=== PATIENT | female | born 1960 | race Caucasian/White ===

== ENCOUNTER 2016-07-02 09:02 | Day surgery (SDC) | payer BC ==
[2016-06-28 13:57] VITALS: BMI 42.9
[~2016-07-02 09:02] MED LIST: LACTATED RINGERS 1,000 ML IV SCH
[2016-07-02] MEDS ORDERED: LIDOCAINE 1% 20 ML VIAL (10MG/ML) FOR IV START SQ ONE (10:28)
[2016-07-02 10:35] VITALS: TEMP 97.4
[2016-07-02] MEDS ORDERED: DEXTROSE 50%-WATER 50 ML SYRINGE IVP STA (10:51)
[2016-07-02 10:58] LABS: Glucose,Whole Blood 64 mg/dL (75-99)
[2016-07-02 11:19] LABS: Glucose,Whole Blood 102 mg/dL (75-99)
[2016-07-02] MEDS ORDERED: LIDOCAINE 1% INJ 10MG/ML (20 ML MDV) ONE (11:20)
[2016-07-02] MEDS ORDERED: PROPOFOL 10 MG/ML 20 ML VIAL IV ONE (11:20)
[2016-07-02] MEDS ORDERED: ONDANSETRON 4 MG/2 ML VIAL ONE (11:20)
[2016-07-02] MEDS ORDERED: GLYCOPYRROLATE 0.2 MG/ML 2 ML VIAL ONE (11:20)
--- NOTE | 2016-07-02 11:56 | P.PCN ---
Date of Procedure: 07/02/16 Procedure(s) Performed: Procedure: 1. Esophagogastroduodenoscopy and biopsy. 2. Total colonoscopy. Preoperative diagnosis: 1. Chronic reflux symptoms and dysphagia. 2. Screening for colon cancer. Postoperative diagnosis: 1. Sliding hiatal hernia with no obvious esophagitis or complicated reflux disease. 2. Antral gastritis. 3. Normal colon exam. Preparation: HalfLytely prep. Sedation: Was provided by anesthesia. Brief clinical history: The patient is a 55-year-old female who is scheduled for this evaluation for the above reasons. She been having issues with reflux for the last year or so and apparently has intermittent dysphagia but no other alarm symptoms. She has had no prior colonoscopy. She has no abdominal complaints, bleeding or anemia or family history of colon cancer. Procedure: With the patient on her left lateral decubitus position and after informed consent and adequate sedation, I passed the Olympus-GIF 160 video upper endoscope through the cricopharyngeus down the esophagus. GE junction was around 38 cm from the incisors and there was a small sliding hiatal hernia between 1-2 cm. The esophagus did not show any obvious erosions, ulcers, strictures or Baca's esophagus. The endoscope was then passed into the stomach which was insufflated with air and inspected in detail including the retroflex view in the cardia. There was some mottling and erythema in the antrum and scattered small, fading erosions but no ulcers or bleeding. Pyloric channel did not show any ulcers. Duodenal bulb, post bulbar area and descending duodenum showed minimal red. I obtained multiple biopsies from the duodenum, antrum and esophagus then the endoscope was withdrawn and I proceeded with the colonoscopy. Perianal area did not show any fissures or fistulas. There were no masses felt on digital rectal examination. The Olympus CFQ 160L video colonoscope was then inserted in the rectum in the usual fashion and advanced to the cecum. The preparation was good. The mucosa appeared healthy. No polyps or tumors were seen or any obvious diverticular disease or other pathology. I retroflexed endoscope in the rectum before the endoscope was withdrawn. The patient tolerated the procedure well. Plan: The patient was reassured. Will await biopsy results. In the absence of family history of colon cancer or finding of polyps today, I recommended repeat colonoscopy in 10 years. She will follow-up with you as planned.
[2016-07-02 12:10] VITALS: BP 107/61; PULSE 64; RESP 18
== END 2016-07-02 12:32 | disposition home or self-care (01) ==
LOC: ORWHC2ENDO 09:02
DX: Z12.11 Encounter for screening for malignant neoplasm of colon (principal); K21.0 Gastro-esophageal reflux disease with esophagitis; K29.50 Unspecified chronic gastritis without bleeding; K29.80 Duodenitis without bleeding; K44.9 Diaphragmatic hernia without obstruction or gangrene; I10 Essential (primary) hypertension; F39 Unspecified mood [affective] disorder; M35.00 Sjogren syndrome, unspecified; Z91.041 Radiographic dye allergy status; Z88.2 Allergy status to sulfonamides; Z79.52 Long term (current) use of systemic steroids; Z79.1 Long term (current) use of non-steroidal anti-inflammatories (NSAID); Z79.899 Other long term (current) drug therapy
CPT/HCPCS: 88305; 88342; 43239; J2405; J2001; J2704; G0121; 99153

== ENCOUNTER → 2016-11-08 | Outpatient (CLI) | payer BC ==
--- NOTE | 2016-11-14 08:47 | MM ---
Reason for exam: screening (asymptomatic). Last mammogram was performed 3 years and 4 months ago. History: Benign excisional biopsy of the right breast. Physical Findings: A clinical breast exam by your physician is recommended on an annual basis and results should be correlated with mammographic findings. MG 3D Screening Mammo W/Cad Bilateral CC and MLO view(s) were taken. XCCL view(s) were taken of the left breast. Prior study comparison: June 29, 2013, bilateral digital screening mammo w/CAD. There are scattered fibroglandular densities. No significant changes when compared with prior studies. ASSESSMENT: Benign, BI-RAD 2 RECOMMENDATION: Routine screening mammogram of both breasts in 1 year.
== END | disposition home or self-care (01) ==
LOC: RADMAMWWP 07:31
PROVIDERS: ATTEND Obstetrics & Gynecology
DX: Z12.31 Encounter for screening mammogram for malignant neoplasm of breast (principal)
CPT/HCPCS: 77063; G0202

== ENCOUNTER → 2017-05-15 | Outpatient (CLI) | payer BC ==
--- NOTE | 2017-05-15 09:25 | NM ---
EXAMINATION TYPE: NM hepatobiliary w EF DATE OF EXAM: 05/15/2017 COMPARISON: Abdominal ultrasound April 29, 2017. HISTORY: Right upper quadrant pain per order. Epigastric pain with diminished appetite, heartburn and reflux-like symptoms with nausea vomiting constipation and diarrhea all per patient. TECHNIQUE: After the intravenous administration of 5.5 mCi Tc 99m Mebrofenin hepatobiliary scintigrap hy is performed. Immediate images post injection. FINDINGS: There is satisfactory initial accumulation of tracer by the liver. The gallbladder is visualized wit hin 10 minutes. The small bowel activity is noted within 30 minutes. At one hour 8 ounces of oral e nsure plus is given to mimic CCK and gallbladder ejection fraction is calculated at 40 %, in the norm al range. Therefore there is no scintigraphic evidence of cystic or common bile duct obstruction to suggest acute cholecystitis or gallbladder dyskinesia. IMPRESSION: Exam is within normal limits.
== END | disposition home or self-care (01) ==
LOC: RADNMMAIN 06:47
PROVIDERS: ATTEND Family Medicine
DX: R10.11 Right upper quadrant pain (principal)
CPT/HCPCS: 78226; A9537

== ENCOUNTER → 2017-08-26 | Outpatient (CLI) | payer BC ==
--- NOTE | 2017-08-26 16:34 | XR ---
EXAMINATION TYPE: XR chest 2V DATE OF EXAM: 08/26/2017 COMPARISON: Prior chest x-ray December 09, 2015. CT chest June 01, 2014. HISTORY: Presurgical study. TECHNIQUE: Frontal and lateral views of the chest are obtained. FINDINGS: There is no focal air space opacity, pleural effusion, or pneumothorax seen. The cardiac silhouette size is within normal limits. The osseous structures are intact. IMPRESSION: No acute cardiopulmonary process currently.
== END | disposition home or self-care (01) ==
LOC: RADXRYALE 16:00
PROVIDERS: ATTEND Family Medicine
DX: Z01.818 Encounter for other preprocedural examination (principal)
CPT/HCPCS: 71046

== ENCOUNTER → 2017-12-03 | Outpatient (CLI) | payer BC | END | disposition home or self-care (01) | LOC: LABWHC1 06:28 | PROVIDERS: ATTEND Internal Medicine | DX: M19.90 Unspecified osteoarthritis, unspecified site (principal) | CPT/HCPCS: 36415; 82533 ==

== ENCOUNTER → 2018-03-14 | Outpatient (CLI) | payer BC ==
[2018-03-14 15:35] LABS: Anion Gap 5.3 mmol/L (4.00-12.00); Calcium 8.7 mg/dL (8.7-10.3); Carbon Dioxide 30.7 mmol/L (21.6-31.8); Magnesium 1.6 mg/dL (1.5-2.4); Potassium 3.8 mmol/L (3.5-5.5)
== END | disposition home or self-care (01) ==
LOC: LABWHC1 09:20
PROVIDERS: ATTEND Physician Assistant Medical
DX: N18.3 Chronic kidney disease, stage 3 (moderate) (principal); R60.9 Edema, unspecified
CPT/HCPCS: 36415; 80048; 83735

== ENCOUNTER 2018-07-19 12:37 | Emergency (ER) | payer BC ==
[2018-07-19] MEDS ORDERED: SODIUM CHLORIDE 0.9% 1,000 ML IV STA (12:51)
[2018-07-19] MEDS ORDERED: ONDANSETRON 4 MG/2 ML VIAL IVP STA (13:15)
[2018-07-19] MEDS ORDERED: MORPHINE SULFATE 4 MG/ML SYRINGE IV STA (13:16)
[2018-07-19] MEDS ORDERED: diphenhydrAMINE 50 MG/ML 1 ML VIAL IVP STA (13:16)
[2018-07-19] MEDS ORDERED: FAMOTIDINE 20 MG/2 ML VIAL IV STA (13:16)
[2018-07-19] MEDS ORDERED: methylPREDNISolone SOD SUCCI 125 MG/2 ML VIAL IV STA (13:16)
--- NOTE | 2018-07-19 13:34 | ED ---
General Adult HPI - General Chief complaint: Nausea/Vomiting/Diarrhea Stated complaint: Female , Abd Pain Time Seen by Provider: 07/19/18 12:51 Source: patient, RN notes reviewed, old records reviewed Mode of arrival: ambulatory Limitations: no limitations - History of Present Illness Initial comments: 57-year-old female patient past medical history of hypertension, kidney disease, recurrent UTI, presents to ED with nausea vomiting diarrhea, right flank pain, right lower quadrant abdominal pain. Patient does state that this feels similar to pyelonephritis that she had in the past. Patient reports that she presented to her primary care physician's office on with these symptoms, as well as sinusitis symptoms, patient was placed on ciprofloxacin for UTI and sinusitis. Pt states that she is not . Pt reports that sinus congestion has resolved, pt denies any dysuria. Patient denies any chest pain, shortness of breath. Patient denies any other complaints. Systemic: Pt denies fatigue, myalgia, fever/chills, rash. Pt denies weakness, night sweats, weight loss. Neuro: Pt denies headache, visual disturbances, syncope or pre-syncope. HEENT: Pt denies ocular discharge or irritation, otalgia, rhinorrhea, pharyngitis or notable lymphadenopathy. Cardiopulmonary: Pt denies chest pain, SOB, heart palpitations, dyspnea on exertion. Abdominal/GI: Pt denies abdominal pain, n/v/d. : Pt denies dysuria, burning w/ urination, frequency/urgency. Denies new onset urinary or bowel incontinence. MSK: Pt denies myalgia, loss of strength or function in extremities. Neuro: Pt denies new onset weakness, paresthesias. - Related Data Home Medications Medication Instructions Recorded Confirmed ALPRAZolam [Alprazolam] 0.25 mg PO BID 06/28/16 06/28/16 Hydroxychloroquine Sulfate 200 mg PO BID 06/28/16 06/28/16 [Plaquenil] Ibuprofen [Motrin] 800 mg PO Q8HR PRN 06/28/16 06/28/16 Naproxen Sodium [Aleve] 220 mg PO DAILY PRN 06/28/16 06/28/16 Triamterene/Hydrochlorothiazid 1 each PO DAILY 06/28/16 07/02/16 [Triamterene-Hctz 37.5-25 mg Cp] predniSONE 5 mg PO DAILY 06/28/16 06/28/16 Previous Rx's Medication Instructions Recorded Levofloxacin [Levaquin] 750 mg PO DAILY 5 Days tab 07/19/18 Ondansetron Odt [Zofran ODT] 4 mg PO Q8HR PRN #20 tab 07/19/18 Allergies Allergy/AdvReac Type Severity Reaction Status Date / Time Iodinated Contrast- Oral and Allergy Anaphylaxis Verified 07/19/18 12:47 IV Dye [Iodinated Contrast Media - Oral and] Sulfa (Sulfonamide Allergy Nausea & Verified 07/19/18 12:47 Antibiotics) Vomiting Review of Systems ROS Statement: Those systems with pertinent positive or pertinent negative responses have been documented in the HPI. ROS Other: All systems not noted in ROS Statement are negative. Past Medical History Past Medical History: Hypertension, Renal Disease Additional Past Medical History / Comment(s): FREQ UTI'S. SJORGREN'S. HAS BEEN HAVING IBS SYMPTOMS SINCE APR 2016 History of Any Multi-Drug Resistant Organisms: None Reported Past Surgical History: Appendectomy, Bladder Surgery, Hysterectomy, Orthopedic Surgery, Tonsillectomy Additional Past Surgical History / Comment(s): THYROIDECTOMY-PARTIAL. RT FOOT SX. CORTISONE INJECTION LT KNEE Past Anesthesia/Blood Transfusion Reactions: Postoperative Nausea & Vomiting (PONV) Past Psychological History: Anxiety Smoking Status: Never smoker Past Alcohol Use History: None Reported Past Drug Use History: None Reported - Past Family History Father Family Medical History: Cancer General Exam - General Exam Comments Initial Comments: Constitutional: NAD, AOX3, Pt has pleasant affect. HEENT: NC/AT, trachea midline, neck supple, no lymphadenopathy. Posterior pharynx non erythematous, without exudates. External ears appear normal, without discharge. Mucous membranes moist. Eyes PERRLA, EOM intact. There is no scleral icterus. No pallor noted. Cardiopulmonary: RRR, no murmurs, rubs or gallops, no JVD noted. Lungs CTAB in anterior and posterior velasquez. No peripheral edema. Abdominal exam: Abdomen soft and non-distended. Abdomen mildly tender to palpation in RLQ, no other mg of abdominal tenderness. Bowel sounds active in LLQ. No hepatosplenomegaly. No ecchymosis. L CVA tenderness negative. R CVA tenderness positive. Neuro: CN II-XII grossly intact. No nuchal rigidity. MSK: No posterior calf tenderness bilaterally, homans sign negative bilaterally. Posterior tibialis and radial pulse +2 bilaterally. Sensation intact in upper and lower extremities. Full active ROM in upper and lower extremities, 5/5 stregnth. Limitations: no limitations Course Vital Signs 07/19/18 07/19/18 07/19/18 12:44 14:19 15:58 Temperature 98.1 F 98.5 F Pulse Rate 67 55 L 54 L Respiratory 18 18 16 Rate Blood Pressure 144/77 132/83 141/76 O2 Sat by Pulse 98 96 92 L Oximetry Medical Decision Making - Medical Decision Making 57-year-old female patient past medical history of hypertension, appendectomy, kidney disease, recurrent UTI, presents to ED with nausea vomiting diarrhea, right flank pain, right lower quadrant abdominal pain. Patient does state that this feels similar to pyelonephritis that she had in the past. Patient reports that she presented to her primary care physician's office on with these symptoms, as well as sinusitis symptoms, patient was placed on ciprofloxacin for UTI and sinusitis. Patient states that she is not . Pt reports that sinus congestion has resolved, pt denies any dysuria. Patient denies any chest pain, shortness of breath. Patient denies any other complaints. She will signs stable, afebrile. Physical exam displayed: Abdomen soft and non-distended. Abdomen mildly tender to palpation in RLQ, no other mg of abdominal tenderness. Bowel sounds active in LLQ. No hepatosplenomegaly. No ecchymosis. L CVA tenderness negative. R CVA tenderness positive. Laboratory investigations revealed non-impressive CBC. CMP revealed mild hyponatremia, chronic kidney disease, mild elevated AST. Lipase is mildly elevated at 441. UA displayed 7 red blood cells, otherwise negative. CT abdomen and pelvis displayed left basilar airspace disease suspicious for pneumonia. The appendix was not visualized, however patient is status post appendectomy no concern for appendicitis. Bilateral follicular changes of the ovaries. KUB and chest x-ray did not display acute process. Patient to use dietary modification for diarrhea. Patient will continue to monitor abdominal pain. Patient will return to ER if abdominal pain worsens. HTV prescribed Zofran for nausea vomiting. Patient additionally be prescribed Levaquin for possible pneumonia as well as previous treatment for urinary tract infection. Patient will discontinue taking ciprofloxacin. Patient to return to ER if condition worsens in any way. Case discussed with Dr. James. - Lab Data Result diagrams: 07/19/18 13:30 07/19/18 13:30 Lab Results 07/19/18 07/19/18 07/19/18 Range/Units 13:30 13:30 13:30 WBC 5.4 (3.8-10.6) k/uL RBC 4.62 (3.80-5.40) m/uL Hgb 12.8 (11.4-16.0) gm/dL Hct 39.7 (34.0-46.0) % MCV 86.0 (80.0-100.0) fL MCH 27.8 (25.0-35.0) pg MCHC 32.3 (31.0-37.0) g/dL RDW 14.6 (11.5-15.5) % Plt Count 181 (150-450) k/uL Neutrophils % 74 % Lymphocytes % 14 % Monocytes % 9 % Eosinophils % 1 % Basophils % 0 % Neutrophils # 3.9 (1.3-7.7) k/uL Lymphocytes # 0.8 L (1.0-4.8) k/uL Monocytes # 0.5 (0-1.0) k/uL Eosinophils # 0.1 (0-0.7) k/uL Basophils # 0.0 (0-0.2) k/uL Sodium 136 L (137-145) mmol/L Potassium 4.3 (3.5-5.1) mmol/L Chloride 100 (98-107) mmol/L Carbon Dioxide 25 (22-30) mmol/L Anion Gap 11 mmol/L BUN 30 H (7-17) mg/dL Creatinine 1.70 H (0.52-1.04) mg/dL Est GFR (CKD-EPI)AfAm 38 (>60 ml/min/1.73 sqM) Est GFR (CKD-EPI)NonAf 33 (>60 ml/min/1.73 sqM) Glucose 90 (74-99) mg/dL Calcium 9.3 (8.4-10.2) mg/dL Magnesium (1.6-2.3) mg/dL Total Bilirubin 0.5 (0.2-1.3) mg/dL AST 50 H (14-36) U/L ALT 41 (9-52) U/L Alkaline Phosphatase 80 (38-126) U/L Total Protein 7.2 (6.3-8.2) g/dL Albumin 4.2 (3.5-5.0) g/dL Lipase 441 H (23-300) U/L Urine Color Dark Yellow Urine Appearance Clear (Clear) Urine pH 5.5 (5.0-8.0) Ur Specific [place] 1.023 (1.001-1.035) Urine Protein 1+ H (Negative) Urine Glucose (UA) Negative (Negative) Urine Ketones Negative (Negative) Urine Blood Small H (Negative) Urine Nitrite Negative (Negative) Urine Bilirubin Negative (Negative) Urine Urobilinogen <2.0 (<2.0) mg/dL Ur Leukocyte Esterase Negative (Negative) Urine RBC 7 H (0-5) /hpf Urine WBC 2 (0-5) /hpf Ur Squamous Epith Cells 3 (0-4) /hpf Hyaline Casts 1 (0-2) /lpf Urine Mucus Occasional H (None) /hpf 07/19/18 Range/Units 13:30 WBC (3.8-10.6) k/uL RBC (3.80-5.40) m/uL Hgb (11.4-16.0) gm/dL Hct (34.0-46.0) % MCV (80.0-100.0) fL MCH (25.0-35.0) pg MCHC (31.0-37.0) g/dL RDW (11.5-15.5) % Plt Count (150-450) k/uL Neutrophils % % Lymphocytes % % Monocytes % % Eosinophils % % Basophils % % Neutrophils # (1.3-7.7) k/uL Lymphocytes # (1.0-4.8) k/uL Monocytes # (0-1.0) k/uL Eosinophils # (0-0.7) k/uL Basophils # (0-0.2) k/uL Sodium (137-145) mmol/L Potassium (3.5-5.1) mmol/L Chloride (98-107) mmol/L Carbon Dioxide (22-30) mmol/L Anion Gap mmol/L BUN (7-17) mg/dL Creatinine (0.52-1.04) mg/dL Est GFR (CKD-EPI)AfAm (>60 ml/min/1.73 sqM) Est GFR (CKD-EPI)NonAf (>60 ml/min/1.73 sqM) Glucose (74-99) mg/dL Calcium (8.4-10.2) mg/dL Magnesium 1.8 (1.6-2.3) mg/dL Total Bilirubin (0.2-1.3) mg/dL AST (14-36) U/L ALT (9-52) U/L Alkaline Phosphatase (38-126) U/L Total Protein (6.3-8.2) g/dL Albumin (3.5-5.0) g/dL Lipase (23-300) U/L Urine Color Urine Appearance (Clear) Urine pH (5.0-8.0) Ur Specific [place] (1.001-1.035) Urine Protein (Negative) Urine Glucose (UA) (Negative) Urine Ketones (Negative) Urine Blood (Negative) Urine Nitrite (Negative) Urine Bilirubin (Negative) Urine Urobilinogen (<2.0) mg/dL Ur Leukocyte Esterase (Negative) Urine RBC (0-5) /hpf Urine WBC (0-5) /hpf Ur Squamous Epith Cells (0-4) /hpf Hyaline Casts (0-2) /lpf Urine Mucus (None) /hpf Disposition Clinical Impression: Nausea and vomiting Disposition: HOME SELF-CARE Condition: Stable Instructions (If sedation given, give patient instructions): Acute Nausea and Vomiting in Children (ED) Additional Instructions: Patient to adhere to previously discussed treatment plan and will take medication(s) as directed. Patient to follow up with PCP in 1-2 days. Patient to return to ED if symptoms do not improve. Please stop taking ciprofloxacin. Please take Levaquin. Levaquin is the only antibiotic that you should be taking. Please use Zofran as needed for nausea. Please follow-up with primary care provider in 1-2 days for continued evaluation. Please return to ER if condition worsens in any way. Prescriptions: Levofloxacin [Levaquin] 750 mg PO DAILY 5 Days tab Ondansetron Odt [Zofran ODT] 4 mg PO Q8HR PRN #20 tab PRN Reason: Nausea Is patient prescribed a controlled substance at d/c from ED?: No Referrals: Brayan Ni DO [Primary Care Provider] - 1-2 days Time of Disposition: 15:49
--- NOTE | 2018-07-19 14:00 | XR ---
EXAMINATION TYPE: XR chest 2V DATE OF EXAM: 07/19/2018 COMPARISON: 08/26/2017 HISTORY: Shortness of breath TECHNIQUE: Frontal and lateral views of the chest are obtained. FINDINGS: There is no focal air space opacity, pleural effusion, or pneumothorax seen. The cardiac silhouette size is within normal limits. The osseous structures are intact. IMPRESSION: No acute cardiopulmonary process.
[2018-07-19 14:01] LABS: Appearance,Urine Clear (Clear); Basophils % (A) 0 %; Bilirubin,Urine Negative (Negative); Blood,Urine Small (Negative); Color,Urine Dark Yellow; Eosinophils # (A) 0.1 k/uL (0-0.7); Eosinophils % (A) 1 %; Glucose,Urine (UA) Negative (Negative); HCT 39.7 % (34.0-46.0); HGB 12.8 gm/dL (11.4-16.0); Hyaline Casts,Urine 1 /lpf (0-2); Ketones,Urine Negative (Negative); Leukocyte Esterase,Urine Negative (Negative); Lymphocytes # (A) 0.8 k/uL (1.0-4.8); Lymphocytes % (A) 14 %; MCH 27.8 pg (25.0-35.0); MCHC 32.3 g/dL (31.0-37.0); Mean Platelet Volume 7.3; Monocytes # (A) 0.5 k/uL (0-1.0); Monocytes % (A) 9 %; Mucus,Urine Occasional /hpf; Neutrophils # (A) 3.9 k/uL (1.3-7.7); Neutrophils % (A) 74 %; Nitrite,Urine Negative (Negative); PH, Urine 5.5 (5.0-8.0); Platelet Count 181 k/uL (150-450); Protein,Urine 1+ (Negative); RBC 4.62 m/uL (3.80-5.40); RBC,Urine 7 /hpf (0-5); RDW 14.6 % (11.5-15.5); Specific Gravity,Urine 1.023 (1.001-1.035); Squamous Epithelial Cell,Urine 3 /hpf (0-4); Urobilinogen,Urine <2.0 mg/dL (<2.0); WBC 5.4 k/uL (3.8-10.6); WBC,Urine 2 /hpf (0-5)
[2018-07-19 14:13] LABS: Albumin 4.2 g/dL (3.5-5.0); Calcium 9.3 mg/dL (8.4-10.2); Potassium 4.3 mmol/L (3.5-5.1); Total Bilirubin 0.5 mg/dL (0.2-1.3); Total Protein 7.2 g/dL (6.3-8.2)
--- NOTE | 2018-07-19 14:22 | XR ---
EXAMINATION TYPE: XR KUB DATE OF EXAM: 07/19/2018 1:56 PM CLINICAL HISTORY: Urinary tract infection TECHNIQUE: Single upright image of the abdomen is obtained. COMPARISON: 06/09/2013. FINDINGS: Scattered gas is seen in non-distended small bowel loops. Gas and fecal material is seen in non-distended colon. There is no visceromegaly, pneumoperitoneum, or abnormal calcification apprecia carla. The lung bases are clear and the osseous structures are intact. Levoscoliosis of the lumbar spin e is noted. IMPRESSION: Nonobstructive bowel gas pattern.
--- NOTE | 2018-07-19 15:04 | CT ---
EXAMINATION TYPE: CT abdomen pelvis wo con DATE OF EXAM: 07/19/2018 COMPARISON: None HISTORY: Right flank pain, nausea, vomiting, diarrhea CT DLP: 1220.4 mGycm Automated exposure control for dose reduction was used. TECHNIQUE: Helical acquisition of images was performed from the lung bases through the pelvis. FINDINGS: LUNG BASES: Patchy left basilar airspace disease suspicious for pneumonia. Multifocal minimal pleural thickening is also noted dependently. LIVER/GB: Hepatic cyst measures 1 cm. Suspected additional 2 mm cyst is seen on image 28 although too small to accurately characterize. Remainder the unenhanced hepatic parenchyma is grossly unremarkabl e. No cholelithiasis. PANCREAS: No significant abnormality is seen. SPLEEN: No significant abnormality is seen. ADRENALS: No significant abnormality is seen. KIDNEYS: No hydronephrosis or nephrolithiasis. FREE AIR: No free air is visualized ADENOPATHY: No greater than 1 cm short axis lymph node is noted within the abdomen or pelvis. REPRODUCTIVE ORGANS: Bilateral follicular changes are seen of the ovaries. URINARY BLADDER: No significant abnormality is seen. OSSEOUS STRUCTURES: No significant abnormality is seen. BOWEL: The cecum closely abuts a right ovarian follicle and gonadal vein phlebolith. Appendix is not definitely seen however no right lower quadrant fat trainee changes are seen. Terminal ileum is nond ilated. Moderate hiatal hernia seen. No dilated large or small bowel. IMPRESSION: 1. LEFT BASILAR AIRSPACE DISEASE IS SUSPICIOUS FOR PNEUMONIA. 2. NO HYDRONEPHROSIS OR NEPHROLITHIASIS. 3. APPENDIX IS NOT VISUALIZED ALTHOUGH NO RIGHT LOWER QUADRANT FAT STRANDING CHANGES ARE SEEN. 4. BILATERAL FOLLICULAR CHANGES OF THE OVARIES ARE PRESENT. 5. MODERATE HIATAL HERNIA.
[2018-07-19 15:59] VITALS: BP 141/76; PULSE 54; RESP 16; TEMP 98.5
== END 2018-07-19 16:04 | disposition home or self-care (01) ==
LOC: EC 12:37
DX: R11.2 Nausea with vomiting, unspecified (principal); R19.7 Diarrhea, unspecified; R10.31 Right lower quadrant pain; E87.1 Hypo-osmolality and hyponatremia; R74.0 Nonspecific elevation of levels of transaminase and lactic acid dehydrogenase [LDH]; R74.8 Abnormal levels of other serum enzymes; I12.9 Hypertensive chronic kidney disease with stage 1 through stage 4 chronic kidney disease, or unspecified chronic kidney disease; N18.9 Chronic kidney disease, unspecified; N39.0 Urinary tract infection, site not specified; F41.9 Anxiety disorder, unspecified; Z79.899 Other long term (current) drug therapy; Z88.2 Allergy status to sulfonamides; Z91.041 Radiographic dye allergy status; Z90.89 Acquired absence of other organs; Z90.710 Acquired absence of both cervix and uterus
CPT/HCPCS: 36415; 80053; 83690; 83735; 85025; 81001; 71046; 74018; 74176; 99285; 96374; 96375 ×4; 96361 ×2; J2270; J1200; J2930; J2405

== ENCOUNTER → 2018-07-21 | Outpatient (CLI) | payer BC ==
[2018-07-21 13:23] LABS: Appearance,Urine Clear (Clear); Bilirubin,Urine Negative (Negative); Blood,Urine Trace (Negative); Color,Urine Yellow; Glucose,Urine (UA) Negative (Negative); Ketones,Urine Negative (Negative); Leukocyte Esterase,Urine Negative (Negative); Mucus,Urine Rare /hpf; Nitrite,Urine Negative (Negative); Protein,Urine 1+ (Negative); RBC,Urine <1 /hpf (0-5); Specific Gravity,Urine 1.021 (1.001-1.035); Squamous Epithelial Cell,Urine 1 /hpf (0-4); Uric Acid Crystals,Urine Rare /hpf; Urobilinogen,Urine <2.0 mg/dL (<2.0)
[2018-07-21 13:40] LABS: HCT 37.3 % (34.0-46.0); HGB 11.9 gm/dL (11.4-16.0); MCH 27.9 pg (25.0-35.0); MCHC 31.8 g/dL (31.0-37.0); MCV 87.6 fL (80.0-100.0); Mean Platelet Volume 7.3; Platelet Count 181 k/uL (150-450); RBC 4.26 m/uL (3.80-5.40); RDW 14.5 % (11.5-15.5); WBC 5.8 k/uL (3.8-10.6)
[2018-07-21 18:44] LABS: Iron Saturation 5.9 (12.00-45.00)
[2018-07-21 18:49] LABS: Vitamin D 25 Hydroxy 23.5 ng/mL (30.0-100.0)
[2018-07-21 19:32] LABS: Parathyroid Hormone Intact 89.2 pg/mL (14.0-72.0)
[2018-07-22 02:20] LABS: Albumin 4.1 g/dL (3.80-4.90); Albumin/Globulin Ratio 1.95 (1.60-3.17); Anion Gap 10.6 mmol/L (4.00-12.00); Calcium 8.5 mg/dL (8.7-10.3); Carbon Dioxide 23.4 mmol/L (21.6-31.8); Globulin 2.1 g/dL (1.6-3.3); Magnesium 1.6 mg/dL (1.5-2.4); Total Bilirubin 0.2 mg/dL (0.3-1.2); Total Protein 6.2 g/dL (6.2-8.2); Uric Acid 5.8 mg/dL (2.9-7.7)
== END ==
LOC: LABWHC1 12:02
PROVIDERS: ATTEND Internal Medicine
DX: N39.0 Urinary tract infection, site not specified (principal); D63.1 Anemia in chronic kidney disease; N18.3 Chronic kidney disease, stage 3 (moderate); E21.3 Hyperparathyroidism, unspecified; E55.9 Vitamin D deficiency, unspecified; M10.9 Gout, unspecified
CPT/HCPCS: 36415; 80053; 81001; 82306; 82728; 83540; 83550; 83735; 83970; 84100; 84550; 85027

== ENCOUNTER → 2019-02-26 | Outpatient (CLI) | payer BC ==
--- NOTE | 2019-02-27 07:16 | XR ---
EXAMINATION TYPE: XR Hip Complete RT DATE OF EXAM: 02/26/2019 CLINICAL HISTORY: Intermittent right hip pain over one week TECHNIQUE: AP and frogleg views of the right hip are obtained. COMPARISON: None. FINDINGS: There is no acute fracture/dislocation evident in the right hip. The joint space in the r ight hip appears aligned with mild acetabular sclerosis and joint space narrowing. Tiny osteophyte is seen on the frog leg view at the chondral labral junction. The overlying soft tissue appears unremar kable. IMPRESSION: There is no acute fracture or dislocation in the right hip. Mild right femoral acetabula r arthropathy.
== END | disposition home or self-care (01) ==
LOC: RADXRYALE 16:48
PROVIDERS: ATTEND Physician Assistant
DX: M16.11 Unilateral primary osteoarthritis, right hip (principal)
CPT/HCPCS: 73502

== ENCOUNTER → 2019-06-17 | Outpatient (CLI) | payer BC ==
[2019-06-17 17:28] LABS: Appearance,Urine Clear (Clear); Bilirubin,Urine Negative (Negative); Blood,Urine Trace (Negative); Color,Urine Yellow; Glucose,Urine (UA) Negative (Negative); Ketones,Urine Negative (Negative); Leukocyte Esterase,Urine Moderate (Negative); Mucus,Urine Rare /hpf; Nitrite,Urine Negative (Negative); Protein,Urine Trace (Negative); RBC,Urine 2 /hpf (0-5); Specific Gravity,Urine 1.022 (1.001-1.035); Squamous Epithelial Cell,Urine 3 /hpf (0-4); Urobilinogen,Urine <2.0 mg/dL (<2.0); WBC,Urine 3 /hpf (0-5)
[2019-06-17 17:49] LABS: Basophils # (A) 0.1 k/uL (0-0.2); Basophils % (A) 1 %; Eosinophils # (A) 0.1 k/uL (0-0.7); Eosinophils % (A) 1 %; HCT 35.2 % (34.0-46.0); Lymphocytes % (A) 20 %; MCH 28.7 pg (25.0-35.0); MCHC 31.3 g/dL (31.0-37.0); MCV 91.6 fL (80.0-100.0); Mean Platelet Volume 7.7; Monocytes # (A) 0.6 k/uL (0-1.0); Monocytes % (A) 6 %; Neutrophils # (A) 7.1 k/uL (1.3-7.7); Neutrophils % (A) 72 %; Platelet Count 235 k/uL (150-450); RBC 3.85 m/uL (3.80-5.40); RDW 13.5 % (11.5-15.5)
[2019-06-18 00:13] LABS: % Iron Saturation 12.46 (12.00-45.00); African American GFR (CKD) 43.7 (60.0-200.0); Albumin 4.2 g/dL (3.80-4.90); Albumin/Globulin Ratio 2.21 (1.60-3.17); Anion Gap 7.7 mmol/L (4.00-12.00); Calcium 8.8 mg/dL (8.7-10.3); Carbon Dioxide 26.3 mmol/L (21.6-31.8); Globulin 1.9 g/dL (1.6-3.3); Non-African American GFR(CKD) 37.7 (60.0-200.0); Phosphorus 3.9 mg/dL (2.4-5.1); Potassium 4.8 mmol/L (3.5-5.5); Total Bilirubin 0.2 mg/dL (0.3-1.2); Total Protein 6.1 g/dL (6.2-8.2); Uric Acid 6.2 mg/dL (2.9-7.7)
== END | disposition home or self-care (01) ==
LOC: LABWHC1 15:56
PROVIDERS: ATTEND Internal Medicine
DX: N18.3 Chronic kidney disease, stage 3 (moderate) (principal); D63.1 Anemia in chronic kidney disease; N39.0 Urinary tract infection, site not specified; E21.3 Hyperparathyroidism, unspecified; E55.9 Vitamin D deficiency, unspecified; M10.9 Gout, unspecified
CPT/HCPCS: 36415; 80053; 81001; 82306; 82728; 83540; 83550; 83735; 83970; 84100; 84550; 85025

== ENCOUNTER → 2019-07-14 | Outpatient (CLI) | payer BC ==
--- NOTE | 2019-07-15 10:53 | MM ---
Reason for exam: screening (asymptomatic). Last mammogram was performed 2 years and 8 months ago. History: Patient is postmenopausal. Benign excisional biopsy of the right breast. Physical Findings: A clinical breast exam by your physician is recommended on an annual basis and results should be correlated with mammographic findings. MG 3D Screening Mammo W/Cad Bilateral CC and MLO view(s) were taken. Prior study comparison: November 08, 2016, bilateral MG 3d screening mammo w/cad. June 29, 2013, bilateral digital screening mammo w/CAD. There are scattered fibroglandular densities. No suspicious abnormality. No significant changes when compared with prior studies. ASSESSMENT: Negative, BI-RAD 1 RECOMMENDATION: Routine screening mammogram of both breasts in 1 year.
== END | disposition home or self-care (01) ==
LOC: RADMAMWWP 07:05
PROVIDERS: ATTEND Obstetrics & Gynecology
DX: Z12.31 Encounter for screening mammogram for malignant neoplasm of breast (principal)
CPT/HCPCS: 77063; 77067

== ENCOUNTER → 2020-02-17 | Outpatient (CLI) | payer BC ==
--- NOTE | 2020-02-17 09:01 | BD ---
EXAMINATION TYPE: Axial Bone Density DATE OF EXAM: 02/17/2020 COMPARISON: 11.18.2014 CLINICAL HISTORY: 59 YR OLD FEMALE.....ICD-10 CODE: M85.9 DISORDER OF BONE Height: 64.2 Weight: 249 FRAX RISK QUESTIONS: Glucocorticoids (More than 3mos): YES (Ex: prednisone, prednisolone, methylprednisolone, dexamethasone, and hydrocortisone). RISK FACTORS HISTORY OF: Diet low in dairy products/other sources of calcium: YES Postmenopausal woman: YES, AT ABOUT HYST IN HER 20s....MAYBE AT 49 YRS OLD Hyperparathyroidism: NO Adrenal Insufficiency: NO MEDICATIONS: Prednisone or other steroids: PREDNISONE, INFLAMMATION OF ARTHRITIS, AUTO IMMUNE Additional Medications: VIT D, BP MEDS, Additional History: LT KNEE REPLACEMENT, ARTHRITIS, EXAM MEASUREMENTS: Bone mineral densitometry was performed using the Skem[employer] System. Bone mineral density as measured about the Lumbar spine is: ----- L1-L4(G/cm2): 1.380 T Score Values are as follows: ----- L1: 2.0 ----- L2: 2.7 ----- L3: 0.9 ----- L4: 1.0 ----- L1-L4: 1.7 Bone mineral density has: Increased 2.4% SINCE STUDY OF 11.18.2014 Bone mineral density about the R hip (g/cm2): 0.938 Bone mineral density about the L hip (g/cm2): 0.939 T Score values are as follows: -----R Neck: -0.9 -----L Neck: -1.4 -----R Total: -0.6 -----L Total: -0.5 Bone mineral density has: Decreased -13.2% SINCE LAST DONE 11.18.2014 FRAX%s: THERE IS A 14.1% CHANCE FOR A MAJOR OSTEOPOROTIC FX AND A 1.3% FOR HIP....PROBABILITY FOR F X IN 10 YRS TIME IMPRESSION: No evidence for osteoporosis or osteopenia. NOTE: T-SCORE=SD OF THE YOUNG ADULT MEAN.
== END | disposition home or self-care (01) ==
LOC: RADBDWWP 07:45
PROVIDERS: ATTEND Family Medicine
DX: M85.9 Disorder of bone density and structure, unspecified (principal)
CPT/HCPCS: 77080

== ENCOUNTER → 2020-04-08 | Outpatient (CLI) | payer BC ==
[2020-04-08 08:33] LABS: HGB 11.3 gm/dL (11.4-16.0); MCH 29.9 pg (25.0-35.0); MCHC 31.3 g/dL (31.0-37.0); MCV 95.5 fL (80.0-100.0); Mean Platelet Volume 7.4; Platelet Count 259 k/uL (150-450); RBC 3.77 m/uL (3.80-5.40); RDW 14.3 % (11.5-15.5); WBC 9.5 k/uL (3.8-10.6)
[2020-04-08 09:11] LABS: Appearance,Urine Cloudy (Clear); Bacteria,Urine Rare /hpf; Bilirubin,Urine Negative (Negative); Blood,Urine Trace (Negative); Color,Urine Light Yellow; Glucose,Urine (UA) Negative (Negative); Ketones,Urine Negative (Negative); Leukocyte Esterase,Urine Large (Negative); Mucus,Urine Rare /hpf; Nitrite,Urine Positive (Negative); Protein,Urine Trace (Negative); RBC,Urine 5 /hpf (0-5); Specific Gravity,Urine 1.016 (1.001-1.035); Squamous Epithelial Cell,Urine 1 /hpf (0-4); Urobilinogen,Urine <2.0 mg/dL (<2.0); WBC,Urine 178 /hpf (0-5)
[2020-04-08 14:24] LABS: Ferritin 189.7 ng/mL (10.0-291.0)
[2020-04-08 15:36] LABS: % Iron Saturation 25.51 (12.00-45.00); African American GFR (CKD) 40.2 (60.0-200.0); Albumin 3.9 g/dL (3.80-4.90); Albumin/Globulin Ratio 1.86 (1.60-3.17); Anion Gap 8.2 mmol/L (4.00-12.00); BUN/Creat Ratio 20.63 Ratio (12.00-20.00); Calcium 8.6 mg/dL (8.7-10.3); Carbon Dioxide 24.8 mmol/L (21.6-31.8); Globulin 2.1 g/dL (1.6-3.3); Non-African American GFR(CKD) 34.7 (60.0-200.0); Phosphorus 3.3 mg/dL (2.4-5.1); Total Bilirubin 0.3 mg/dL (0.3-1.2); Uric Acid 7.6 mg/dL (2.9-7.7)
[2020-04-08 15:37] LABS: Magnesium 1.7 mg/dL (1.5-2.4)
== END | disposition home or self-care (01) ==
LOC: LABWHC1 08:05
PROVIDERS: ATTEND Internal Medicine
DX: N18.30 Chronic kidney disease, stage 3 unspecified (principal); M10.9 Gout, unspecified; E55.9 Vitamin D deficiency, unspecified; N25.81 Secondary hyperparathyroidism of renal origin; N39.0 Urinary tract infection, site not specified; D63.1 Anemia in chronic kidney disease
CPT/HCPCS: 36415; 80053; 81001; 82306; 82728; 83540; 83550; 83735; 83970; 84100; 84550; 85027

== ENCOUNTER → 2020-06-21 | Outpatient (CLI) | payer BC ==
--- NOTE | 2020-06-21 11:08 | XR ---
EXAMINATION TYPE: XR shoulder complete LT DATE OF EXAM: 06/21/2020 CLINICAL HISTORY: Posterior superior shoulder pain for one month. History of cortisone injection TECHNIQUE: Three views of the left shoulder are obtained. COMPARISON: None. FINDINGS: There is no acute fracture/dislocation evident in the left shoulder. Lower to severe gleno humeral joint narrowing with mild to moderate spurring. Distal acromion morphology unremarkable. The visualized ribs are intact . IMPRESSION: As above.
== END | disposition home or self-care (01) ==
LOC: RADXRYALE 10:22
PROVIDERS: ATTEND Family Medicine
DX: M25.812 Other specified joint disorders, left shoulder (principal); M25.712 Osteophyte, left shoulder

== ENCOUNTER → 2020-07-01 | Outpatient (CLI) | payer BC ==
--- NOTE | 2020-07-01 10:05 | CT ---
EXAMINATION TYPE: CT facial bones wo con DATE OF EXAM: 07/01/2020 COMPARISON: None HISTORY: Chronic sinusitis CT DLP: 609.[address] of the paranasal sinuses was performed in the axial and coronal planes. Bone and soft tissue settings are submitted. The paranasal sinuses demonstrate normal aeration and development. The paranasal sinuses are free of mucosal thickening or air fluid level. The osteal meatal units are patent bilaterally. The nasal septum is midline. No bony destructive changes are seen within the field of view. IMPRESSION: Normal unenhanced CT of the paranasal sinuses.
== END | disposition home or self-care (01) ==
LOC: RADCTMAIN 09:04
PROVIDERS: ATTEND Family Medicine
DX: J32.4 Chronic pansinusitis (principal)
CPT/HCPCS: 70486

== ENCOUNTER → 2020-11-09 | Outpatient (CLI) | payer BC ==
[2020-11-09 12:42] LABS: Appearance,Urine Cloudy (Clear); Bacteria,Urine Occasional /hpf; Bilirubin,Urine Negative (Negative); Blood,Urine Trace (Negative); Color,Urine Yellow; Glucose,Urine (UA) Negative (Negative); Hyaline Casts,Urine 3 /lpf (0-2); Ketones,Urine Negative (Negative); Leukocyte Esterase,Urine Large (Negative); Mucus,Urine Rare /hpf; Nitrite,Urine Positive (Negative); Protein,Urine Trace (Negative); RBC,Urine 5 /hpf (0-5); Specific Gravity,Urine 1.018 (1.001-1.035); Squamous Epithelial Cell,Urine 5 /hpf (0-4); Urobilinogen,Urine <2.0 mg/dL (<2.0); WBC,Urine 76 /hpf (0-5)
[2020-11-09 18:53] LABS: HCT 33.8 % (37.2-46.3); HGB 10.5 g/dL (12.0-15.0); MCH 29.9 pg (27.0-32.0); MCHC 31.1 g/dL (32.0-37.0); MCV 96.3 fL (80.0-97.0); Platelet Count 267 X 10*3/uL (140-440); RBC 3.51 X 10*6/uL (4.10-5.20); RDW 13.6 % (11.5-14.5)
[2020-11-09 20:38] LABS: % Iron Saturation 22.92 (12.00-45.00); African American GFR (CKD) 30.5 (60.0-200.0); Albumin 4.1 g/dL (3.80-4.90); Albumin/Globulin Ratio 1.86 (1.60-3.17); Anion Gap 8.5 mmol/L (4.00-12.00); BUN/Creat Ratio 21.5 Ratio (12.00-20.00); Calcium 8.8 mg/dL (8.7-10.3); Carbon Dioxide 22.5 mmol/L (21.6-31.8); Globulin 2.2 g/dL (1.6-3.3); Magnesium 1.6 mg/dL (1.5-2.4); Non-African American GFR(CKD) 26.3 (60.0-200.0); Phosphorus 3.7 mg/dL (2.4-5.1); Potassium 4.3 mmol/L (3.5-5.5); Total Bilirubin 0.3 mg/dL (0.2-1.2); Total Protein 6.3 g/dL (6.2-8.2); Uric Acid 8.3 mg/dL (2.9-7.7)
[2020-11-09 20:47] LABS: Ferritin 139.3 ng/mL (10.0-291.0)
== END | disposition home or self-care (01) ==
LOC: LABWHC1 12:11
PROVIDERS: ATTEND Internal Medicine
DX: N18.30 Chronic kidney disease, stage 3 unspecified (principal); N39.0 Urinary tract infection, site not specified; N25.81 Secondary hyperparathyroidism of renal origin; E55.9 Vitamin D deficiency, unspecified; M10.9 Gout, unspecified; D64.9 Anemia, unspecified
CPT/HCPCS: 36415; 80053; 81001; 82306; 82728; 83540; 83550; 83735; 83970; 84100; 84550; 85027

== ENCOUNTER → 2020-11-09 | Outpatient (CLI) | payer BC ==
--- NOTE | 2020-11-11 15:03 | MM ---
Reason for exam: screening (asymptomatic). Last mammogram was performed 1 year and 4 months ago. History: Patient is postmenopausal. Benign excisional biopsy of the right breast. Physical Findings: A clinical breast exam by your physician is recommended on an annual basis and results should be correlated with mammographic findings. MG 3D Screening Mammo W/Cad Bilateral CC and MLO view(s) were taken. Prior study comparison: July 14, 2019, bilateral MG 3d screening mammo w/cad. November 08, 2016, bilateral MG 3d screening mammo w/cad. There are scattered fibroglandular densities. No significant changes when compared with prior studies. ASSESSMENT: Negative, BI-RAD 1 RECOMMENDATION: Routine screening mammogram of both breasts in 1 year.
== END | disposition home or self-care (01) ==
LOC: RADMAMWWP 12:26
PROVIDERS: ATTEND Obstetrics & Gynecology
DX: Z12.31 Encounter for screening mammogram for malignant neoplasm of breast (principal); Z78.0 Asymptomatic menopausal state
CPT/HCPCS: 77063; 77067

== ENCOUNTER 2020-11-14 11:33 | Emergency (ER) | payer BC ==
[2020-11-14 12:18] VITALS: RESP 18
[2020-11-14] MEDS ORDERED: KETOROLAC 15 MG/ML 1 ML VIAL IVP STA (12:40)
[2020-11-14] MEDS ORDERED: ONDANSETRON 4 MG/2 ML VIAL IVP STA (12:40)
[2020-11-14] MEDS ORDERED: SODIUM CHLORIDE 0.9% 1,000 ML IV STA (12:40)
--- NOTE | 2020-11-14 12:42 | ED ---
General Adult HPI - General Chief complaint: Abdominal Pain Stated complaint: Urinary or kidney infection Time Seen by Provider: 11/14/20 12:00 Source: patient, RN notes reviewed, old records reviewed Mode of arrival: ambulatory Limitations: no limitations - History of Present Illness Initial comments: This is a 60-year-old female who presents emergency Department with a past medical history significant for multiple urinary tract infections. Patient was told she had a urinary tract infection to come to the hospital because they were concerned because of her renal failure intact she might have pyelonephritis. Patient states she's had no fever chills but over the last week she's had urinary frequency and now dysuria with some suprapubic discomfort as well as right CVA tenderness. Patient denies any vomiting but has had nausea. Patient denies diarrhea. Patient denies any chest pain difficulty breathing shortness of breath. On a daily dose of Macrobid. - Related Data Home Medications Medication Instructions Recorded Confirmed Hydroxychloroquine Sulfate 200 mg PO BID 06/28/16 07/06/19 [Plaquenil] predniSONE 5 mg PO DAILY 06/28/16 07/06/19 Lisinopril [Zestril] 1 tab PO DAILY 07/01/19 07/06/19 Previous Rx's Medication Instructions Recorded Ciprofloxacin HCl [Cipro] 500 mg PO Q12HR #20 tablet 11/14/20 Allergies Allergy/AdvReac Type Severity Reaction Status Date / Time Iodinated Contrast Media Allergy Anaphylaxis Verified 11/14/20 11:52 [Iodinated Contrast Media - Oral and] Sulfa (Sulfonamide Allergy Nausea & Verified 11/14/20 11:52 Antibiotics) Vomiting Review of Systems ROS Statement: Those systems with pertinent positive or pertinent negative responses have been documented in the HPI. ROS Other: All systems not noted in ROS Statement are negative. Past Medical History Past Medical History: Hypertension, Renal Disease Additional Past Medical History / Comment(s): FREQ UTI'S. SJORGREN'S. HAS BEEN HAVING IBS SYMPTOMS SINCE APR 2016 History of Any Multi-Drug Resistant Organisms: None Reported Past Surgical History: Appendectomy, Bladder Surgery, Hysterectomy, Orthopedic Surgery, Tonsillectomy Additional Past Surgical History / Comment(s): THYROIDECTOMY-PARTIAL. RT FOOT SX. CORTISONE INJECTION LT KNEE Past Anesthesia/Blood Transfusion Reactions: Postoperative Nausea & Vomiting (PONV) Past Psychological History: Anxiety Smoking Status: Never smoker Past Alcohol Use History: None Reported Past Drug Use History: None Reported - Past Family History Father Family Medical History: Cancer General Exam - General Exam Comments Initial Comments: GENERAL: Patient is well-developed and well-nourished. Patient is nontoxic and well- hydrated and is in mild distress. ENT: Neck is soft and supple. No significant lymphadenopathy is noted. Oropharynx is clear. Moist mucous membranes. Neck has full range of motion without el iciting any pain. EYES: The sclera were anicteric and conjunctiva were pink and moist. Extraocular movements were intact and pupils were equal round and reactive to light. Eyelids were unremarkable. PULMONARY: Unlabored respirations. Good breath sounds bilaterally. No audible rales rhonchi or wheezing was noted. CARDIOVASCULAR: There is a regular rate and rhythm without any murmurs gallops or rubs. ABDOMEN: Soft and nontender with normal bowel sounds. No palpable organomegaly was not ed. There is no palpable pulsatile mass. SKIN: Skin is clear with no lesions or rashes and otherwise unremarkable. NEUROLOGIC: Patient is alert and oriented x3. Cranial nerves II through XII are grossly intact. Motor and sensory are also intact. Normal speech, volume and content. Symmetrical smile. MUSCULOSKELETAL: Normal extremities with adequate strength and full range of motion. Mild CVA tenderness LYMPHATICS: No significant lymphadenopathy is noted PSYCHIATRIC: Normal psychiatric evaluation. Limitations: no limitations Course Vital Signs 11/14/20 11/14/20 11:49 12:18 Temperature 97.9 F Pulse Rate 18 L 78 Respiratory 20 18 Rate Blood Pressure 148/79 O2 Sat by Pulse 84 L 98 Oximetry Medical Decision Making - Medical Decision Making Patient received 2 g of Rocephin in the emergency department. - Lab Data Result diagrams: 11/14/20 13:02 11/14/20 13:02 Lab Results 11/14/20 11/14/20 11/14/20 Range/Units 12:37 13:02 13:02 WBC 9.4 (3.8-10.6) k/uL RBC 3.48 L (3.80-5.40) m/uL Hgb 10.5 L (11.4-16.0) gm/dL Hct 31.7 L (34.0-46.0) % MCV 90.9 (80.0-100.0) fL MCH 30.0 (25.0-35.0) pg MCHC 33.0 (31.0-37.0) g/dL RDW 13.8 (11.5-15.5) % Plt Count 219 (150-450) k/uL MPV 7.5 Neutrophils % 70 % Lymphocytes % 20 % Monocytes % 7 % Eosinophils % 1 % Basophils % 1 % Neutrophils # 6.6 (1.3-7.7) k/uL Lymphocytes # 1.8 (1.0-4.8) k/uL Monocytes # 0.7 (0-1.0) k/uL Eosinophils # 0.1 (0-0.7) k/uL Basophils # 0.0 (0-0.2) k/uL Sodium 138 (137-145) mmol/L Potassium 4.4 (3.5-5.1) mmol/L Chloride 107 (98-107) mmol/L Carbon Dioxide 23 (22-30) mmol/L Anion Gap 8 mmol/L BUN 37 H (7-17) mg/dL Creatinine 1.78 H (0.52-1.04) mg/dL Est GFR (CKD-EPI)AfAm 35 (>60 ml/min/1.73 sqM) Est GFR (CKD-EPI)NonAf 30 (>60 ml/min/1.73 sqM) Glucose 79 (74-99) mg/dL Plasma Lactic Acid Cruz (0.7-2.0) mmol/L Calcium 9.4 (8.4-10.2) mg/dL Total Bilirubin 0.4 (0.2-1.3) mg/dL AST 29 (14-36) U/L ALT 16 (4-34) U/L Alkaline Phosphatase 70 (38-126) U/L Total Protein 6.2 L (6.3-8.2) g/dL Albumin 3.8 (3.5-5.0) g/dL Amylase 56 (30-110) U/L Lipase 215 (23-300) U/L Urine Color Light Yellow Urine Appearance Clear (Clear) Urine pH 5.0 (5.0-8.0) Ur Specific Harvey 1.015 (1.001-1.035) Urine Protein Trace H (Negative) Urine Glucose (UA) Negative (Negative) Urine Ketones Negative (Negative) Urine Blood Trace H (Negative) Urine Nitrite Positive H (Negative) Urine Bilirubin Negative (Negative) Urine Urobilinogen <2.0 (<2.0) mg/dL Ur Leukocyte Esterase Moderate H (Negative) Urine RBC 3 (0-5) /hpf Urine WBC 33 H (0-5) /hpf Ur Squamous Epith Cells 1 (0-4) /hpf Urine Bacteria Occasional H (None) /hpf Urine Mucus Rare H (None) /hpf 11/14/20 Range/Units 13:02 WBC (3.8-10.6) k/uL RBC (3.80-5.40) m/uL Hgb (11.4-16.0) gm/dL Hct (34.0-46.0) % MCV (80.0-100.0) fL MCH (25.0-35.0) pg MCHC (31.0-37.0) g/dL RDW (11.5-15.5) % Plt Count (150-450) k/uL MPV Neutrophils % % Lymphocytes % % Monocytes % % Eosinophils % % Basophils % % Neutrophils # (1.3-7.7) k/uL Lymphocytes # (1.0-4.8) k/uL Monocytes # (0-1.0) k/uL Eosinophils # (0-0.7) k/uL Basophils # (0-0.2) k/uL Sodium (137-145) mmol/L Potassium (3.5-5.1) mmol/L Chloride (98-107) mmol/L Carbon Dioxide (22-30) mmol/L Anion Gap mmol/L BUN (7-17) mg/dL Creatinine (0.52-1.04) mg/dL Est GFR (CKD-EPI)AfAm (>60 ml/min/1.73 sqM) Est GFR (CKD-EPI)NonAf (>60 ml/min/1.73 sqM) Glucose (74-99) mg/dL Plasma Lactic Acid Cruz 1.1 (0.7-2.0) mmol/L Calcium (8.4-10.2) mg/dL Total Bilirubin (0.2-1.3) mg/dL AST (14-36) U/L ALT (4-34) U/L Alkaline Phosphatase (38-126) U/L Total Protein (6.3-8.2) g/dL Albumin (3.5-5.0) g/dL Amylase (30-110) U/L Lipase (23-300) U/L Urine Color Urine Appearance (Clear) Urine pH (5.0-8.0) Ur Specific Harvey (1.001-1.035) Urine Protein (Negative) Urine Glucose (UA) (Negative) Urine Ketones (Negative) Urine Blood (Negative) Urine Nitrite (Negative) Urine Bilirubin (Negative) Urine Urobilinogen (<2.0) mg/dL Ur Leukocyte Esterase (Negative) Urine RBC (0-5) /hpf Urine WBC (0-5) /hpf Ur Squamous Epith Cells (0-4) /hpf Urine Bacteria (None) /hpf Urine Mucus (None) /hpf Disposition Clinical Impression: Pyelonephritis Disposition: HOME SELF-CARE Condition: Good Prescriptions: Ciprofloxacin HCl [Cipro] 500 mg PO Q12HR #20 tablet Is patient prescribed a controlled substance at d/c from ED?: No Referrals: Brayan Ni DO [Primary Care Provider] - 1-2 days Time of Disposition: 14:06
[2020-11-14 13:11] LABS: Appearance,Urine Clear (Clear); Bacteria,Urine Occasional /hpf; Bilirubin,Urine Negative (Negative); Blood,Urine Trace (Negative); Color,Urine Light Yellow; Glucose,Urine (UA) Negative (Negative); Ketones,Urine Negative (Negative); Leukocyte Esterase,Urine Moderate (Negative); Mucus,Urine Rare /hpf; Nitrite,Urine Positive (Negative); Protein,Urine Trace (Negative); RBC,Urine 3 /hpf (0-5); Specific Gravity,Urine 1.015 (1.001-1.035); Squamous Epithelial Cell,Urine 1 /hpf (0-4); Urobilinogen,Urine <2.0 mg/dL (<2.0); WBC,Urine 33 /hpf (0-5)
[2020-11-14 13:34] LABS: Basophils % (A) 1 %; Eosinophils # (A) 0.1 k/uL (0-0.7); Eosinophils % (A) 1 %; HCT 31.7 % (34.0-46.0); HGB 10.5 gm/dL (11.4-16.0); Lymphocytes # (A) 1.8 k/uL (1.0-4.8); Lymphocytes % (A) 20 %; MCV 90.9 fL (80.0-100.0); Mean Platelet Volume 7.5; Monocytes # (A) 0.7 k/uL (0-1.0); Monocytes % (A) 7 %; Neutrophils # (A) 6.6 k/uL (1.3-7.7); Neutrophils % (A) 70 %; Platelet Count 219 k/uL (150-450); RBC 3.48 m/uL (3.80-5.40); RDW 13.8 % (11.5-15.5); WBC 9.4 k/uL (3.8-10.6)
[2020-11-14 13:43] LABS: Albumin 3.8 g/dL (3.5-5.0); Calcium 9.4 mg/dL (8.4-10.2); Total Bilirubin 0.4 mg/dL (0.2-1.3); Total Protein 6.2 g/dL (6.3-8.2)
[2020-11-14 13:53] LABS: Potassium 4.4 mmol/L (3.5-5.1)
[2020-11-14] MEDS ORDERED: cefTRIAXone IN SWFI 1,000 MG/10 ML SYRINGE IVP STA (14:04)
[2020-11-14 14:57] VITALS: BP 146/78; PULSE 84; TEMP 98.1
== END 2020-11-14 14:55 | disposition home or self-care (01) ==
LOC: EC 11:33
DX: N12 Tubulo-interstitial nephritis, not specified as acute or chronic (principal); I10 Essential (primary) hypertension; Z90.89 Acquired absence of other organs; Z90.710 Acquired absence of both cervix and uterus; Z90.09 Acquired absence of other part of head and neck
CPT/HCPCS: 36415; 80053; 81001; 82150; 83605; 83690; 85025; 87086; 96365; 96375; 96376; 99284

== ENCOUNTER → 2021-01-31 | Outpatient (CLI) | payer BC ==
--- NOTE | 2021-01-31 13:20 | US ---
EXAMINATION TYPE: US kidneys/renal and bladder DATE OF EXAM: 01/31/2021 COMPARISON: US, CT CLINICAL HISTORY: Acute cystitis w/hematuria N30.01,B96.1 Klebsiella Pneumoniae bacteria; CKD stage I II per patient. EXAM MEASUREMENTS: Right Kidney: 8.9 x 6.4 x 5.2 cm Left Kidney: 8.8 x 5.1 x 4.6 cm Post Void Residual Volume: 15.3 mL Right Kidney: No hydronephrosis or masses seen Left Kidney: multiple small renal cysts seen with largest medial mid pole = 4.0 x 0.9 x 0.7cm; hypere choic vascular sharp noted mid pole. Bladder: wnl Bilateral Jets seen: not seen after 3 minute observation Normal Post Void Residual: yes There is no evidence for hydronephrosis at this point in time. No nephrolithiasis is seen. The urin radha bladder is anechoic. IMPRESSION: 1. Left renal cysts.
== END | disposition home or self-care (01) ==
LOC: RADUSWWP 12:11
PROVIDERS: ATTEND Urology
DX: N18.30 Chronic kidney disease, stage 3 unspecified (principal); N28.1 Cyst of kidney, acquired
CPT/HCPCS: 76770

== ENCOUNTER → 2021-03-16 | Outpatient (CLI) | payer BC ==
[2021-03-16 12:35] LABS: Appearance,Urine Clear (Clear); Bilirubin,Urine Negative (Negative); Blood,Urine Negative (Negative); Color,Urine Light Yellow; Glucose,Urine (UA) Negative (Negative); Ketones,Urine Negative (Negative); Leukocyte Esterase,Urine Negative (Negative); Nitrite,Urine Negative (Negative); PH, Urine 5.5 (5.0-8.0); Protein,Urine Trace (Negative); Specific Gravity,Urine 1.016 (1.001-1.035); Urobilinogen,Urine <2.0 mg/dL (<2.0)
[2021-03-16 18:05] LABS: HCT 27.5 % (37.2-46.3); HGB 8.5 g/dL (12.0-15.0); MCH 29.2 pg (27.0-32.0); MCHC 30.9 g/dL (32.0-37.0); MCV 94.5 fL (80.0-97.0); Platelet Count 236 X 10*3/uL (140-440); RBC 2.91 X 10*6/uL (4.10-5.20); RDW 13.4 % (11.5-14.5); WBC 6.44 X 10*3/uL (4.50-10.00)
[2021-03-16 20:59] LABS: % Iron Saturation 10.2 (12.00-45.00); African American GFR (CKD) 39.9 (60.0-200.0); Albumin 3.8 g/dL (3.8-4.9); Albumin/Globulin Ratio 1.52 (1.60-3.17); Anion Gap 12.3 mmol/L (4.00-12.00); BUN/Creat Ratio 14.19 Ratio (12.00-20.00); Blood Urea Nitrogen 22.7 mg/dL (9.0-27.0); Carbon Dioxide 21.8 mmol/L (21.6-31.8); Globulin 2.5 g/dL (1.6-3.3); Magnesium 1.9 mg/dL (1.5-2.4); Non-African American GFR(CKD) 34.4 (60.0-200.0); Phosphorus 4.5 mg/dL (2.4-5.1); Potassium 4.5 mmol/L (3.5-5.5); Total Bilirubin 0.2 mg/dL (0.30-1.20); Total Protein 6.2 g/dL (6.2-8.2); Uric Acid 5.6 mg/dL (2.9-7.7)
== END | disposition home or self-care (01) ==
LOC: LABWHC1 11:41
PROVIDERS: ATTEND Internal Medicine
DX: N18.32 Chronic kidney disease, stage 3b (principal)
CPT/HCPCS: 36415; 80053; 81003; 82043; 82306; 82570; 82728; 83540; 83550; 83735; 83970; 84100; 84550; 85027

== ENCOUNTER → 2021-04-04 | Outpatient (CLI) | payer BC ==
[2021-04-04 13:47] LABS: Appearance,Urine Turbid (Clear); Bacteria,Urine Moderate /hpf; Bilirubin,Urine Negative (Negative); Blood,Urine Moderate (Negative); Color,Urine Yellow; Glucose,Urine (UA) Negative (Negative); Ketones,Urine Negative (Negative); Leukocyte Esterase,Urine Large (Negative); Mucus,Urine Rare /hpf; Nitrite,Urine Negative (Negative); PH, Urine 5.5 (5.0-8.0); Protein,Urine 1+ (Negative); RBC,Urine 45 /hpf (0-5); Specific Gravity,Urine 1.019 (1.001-1.035); Squamous Epithelial Cell,Urine 1 /hpf (0-4); Urobilinogen,Urine <2.0 mg/dL (<2.0); WBC,Urine >182 /hpf (0-5)
[2021-04-04 18:52] LABS: HCT 29.2 % (37.2-46.3); HGB 8.7 g/dL (12.0-15.0); MCH 28.4 pg (27.0-32.0); MCHC 29.8 g/dL (32.0-37.0); MCV 95.4 fL (80.0-97.0); Platelet Count 238 X 10*3/uL (140-440); RBC 3.06 X 10*6/uL (4.10-5.20); RDW 14.9 % (11.5-14.5); WBC 9.74 X 10*3/uL (4.50-10.00)
[2021-04-04 20:22] LABS: % Iron Saturation 27.51 (12.00-45.00); ALT 16 U/L (8-44); AST 21 U/L (13-35); African American GFR (CKD) 34.6 (60.0-200.0); Albumin 3.9 g/dL (3.8-4.9); Albumin/Globulin Ratio 1.63 (1.60-3.17); Alkaline Phosphatase 91 U/L (41-126); BUN/Creat Ratio 17.22 Ratio (12.00-20.00); Carbon Dioxide 21.4 mmol/L (20.0-27.5); Chloride 106 mmol/L (96-109); Globulin 2.4 g/dL (1.6-3.3); Glucose 80 mg/dL (70-110); Iron 76 ug/dL (50-170); Magnesium 1.8 mg/dL (1.5-2.4); Non-African American GFR(CKD) 29.9 (60.0-200.0); Phosphorus 4.9 mg/dL (2.4-5.1); Potassium 4.8 mmol/L (3.5-5.5); Sodium 140 mmol/L (135-145); Total Bilirubin <0.20 mg/dL (0.30-1.20); Total Iron Binding Capacity 274 ug/dL (228-460); Total Protein 6.3 g/dL (6.2-8.2); Uric Acid 6.6 mg/dL (2.9-7.7)
== END | disposition home or self-care (01) ==
LOC: LABWHC1 11:57
PROVIDERS: ATTEND Internal Medicine
DX: N18.32 Chronic kidney disease, stage 3b (principal)
CPT/HCPCS: 36415; 80053; 81001; 82043; 82306; 82570; 82728; 83540; 83550; 83735; 83970; 84100; 84550; 85027

== ENCOUNTER → 2021-11-01 | Outpatient (CLI) | payer BC ==
[2021-11-01 17:01] LABS: Appearance,Urine Clear (Clear); Bilirubin,Urine Negative (Negative); Blood,Urine Negative (Negative); Color,Urine Yellow; Glucose,Urine (UA) Negative (Negative); Ketones,Urine Negative (Negative); Leukocyte Esterase,Urine Moderate (Negative); Mucus,Urine Rare /hpf; Nitrite,Urine Negative (Negative); Protein,Urine Trace (Negative); RBC,Urine <1 /hpf (0-5); Specific Gravity,Urine 1.019 (1.001-1.035); Squamous Epithelial Cell,Urine 4 /hpf (0-4); Urobilinogen,Urine <2.0 mg/dL (<2.0); WBC,Urine 3 /hpf (0-5)
[2021-11-01 23:03] LABS: HCT 33.6 % (37.2-46.3); HGB 10.1 g/dL (12.0-15.0); MCH 28.4 pg (27.0-32.0); MCHC 30.1 g/dL (32.0-37.0); MCV 94.4 fL (80.0-97.0); Mean Platelet Volume 10.8 fL (9.5-12.2); NRBC Per 100 WBC 0 /100 WBCS (0.0-0.0); Platelet Count 238 X 10*3/uL (140-440); RBC 3.56 X 10*6/uL (4.10-5.20); RDW 13.2 % (11.5-14.5); WBC 9.79 X 10*3/uL (4.50-10.00)
[2021-11-01 23:24] LABS: % Iron Saturation 16.86 (12.00-45.00); ALT 12 U/L (8-44); AST 19 U/L (13-35); African American GFR (CKD) 33.9 (60.0-200.0); Albumin 4.1 g/dL (3.8-4.9); Albumin/Globulin Ratio 1.69 (1.60-3.17); Alkaline Phosphatase 88 U/L (41-126); Blood Urea Nitrogen 37.5 mg/dL (9.0-27.0); Calcium 9.2 mg/dL (8.7-10.3); Carbon Dioxide 22.1 mmol/L (20.0-27.5); Chloride 104 mmol/L (96-109); Globulin 2.4 g/dL (1.6-3.3); Glucose 144 mg/dL (70-110); Iron 51 ug/dL (50-170); Magnesium 1.9 mg/dL (1.5-2.4); Non-African American GFR(CKD) 29.3 (60.0-200.0); Phosphorus 3.4 mg/dL (2.4-5.1); Potassium 5.1 mmol/L (3.5-5.5); Sodium 138 mmol/L (135-145); Total Bilirubin <0.15 mg/dL (0.30-1.20); Total Iron Binding Capacity 300 ug/dL (228-460); Total Protein 6.5 g/dL (6.2-8.2); Uric Acid 6.3 mg/dL (2.9-7.7)
== END | disposition home or self-care (01) ==
LOC: LABWHC1 15:14
PROVIDERS: ATTEND Internal Medicine
DX: D64.9 Anemia, unspecified (principal); D39.0 Neoplasm of uncertain behavior of uterus; N25.81 Secondary hyperparathyroidism of renal origin; E55.9 Vitamin D deficiency, unspecified; E59 Dietary selenium deficiency; M10.9 Gout, unspecified; N18.32 Chronic kidney disease, stage 3b; N39.0 Urinary tract infection, site not specified
CPT/HCPCS: 36415; 80053; 81001; 82306; 82728; 83540; 83550; 83735; 83970; 84100; 84550; 85027

== ENCOUNTER → 2022-05-30 | Outpatient (CLI) | payer BC ==
--- NOTE | 2022-05-30 12:39 | US ---
EXAMINATION TYPE: US kidneys/renal and bladder DATE OF EXAM: 05/30/2022 COMPARISON: 10/01 US CLINICAL HISTORY: ckd stage b N18.32. routine follow up EXAM MEASUREMENTS: Right Kidney: 9.9 x 5.0 x 4.6 cm Left Kidney: 9.9 x 4.4 x 4.9 cm Right Kidney: small, echogenic, scattered echogenic foci within cortex Left Kidney: small, echogenic, scattered echogenic foci within cortex Bladder: wnl Bilateral Jets seen: no Cortical hyperechoic foci are seen throughout the kidneys. The kidneys are small in size. There is in creased echogenicity to the cortex. Nonvisualization of the ureteral jets. IMPRESSION: 1. Medical renal disease with suggestion of cortical calcifications. 2. No evidence of obstructive uropathy.
== END | disposition home or self-care (01) ==
LOC: RADUSWWP 09:56
PROVIDERS: ATTEND Internal Medicine
DX: N18.32 Chronic kidney disease, stage 3b (principal); N39.0 Urinary tract infection, site not specified; R80.9 Proteinuria, unspecified; E21.3 Hyperparathyroidism, unspecified; E55.9 Vitamin D deficiency, unspecified; M10.9 Gout, unspecified; D63.1 Anemia in chronic kidney disease
CPT/HCPCS: 76770

== ENCOUNTER → 2022-08-28 | Outpatient (CLI) | payer BC ==
[2022-08-29 02:22] LABS: Basophils # (A) 0.07 X 10*3/uL (0.00-0.10); Basophils % (A) 0.8 %; Eosinophils # (A) 0.13 X 10*3/uL (0.04-0.35); Eosinophils % (A) 1.6 %; HCT 31.5 % (37.2-46.3); HGB 9.5 g/dL (12.0-15.0); Immature Grans, Automated 0.4 %; Lymphocytes # (A) 1.93 X 10*3/uL (0.90-5.00); Lymphocytes % (A) 23.4 %; MCHC 30.2 g/dL (32.0-37.0); MCV 99.4 fL (80.0-97.0); Monocytes # (A) 0.64 X 10*3/uL (0.20-1.00); Monocytes % (A) 7.8 %; NRBC Per 100 WBC 0 /100 WBCS (0.0-0.0); Neutrophils # (A) 5.45 X 10*3/uL (1.80-7.70); Platelet Count 227 X 10*3/uL (140-440); RBC 3.17 X 10*6/uL (4.10-5.20); RDW 15.1 % (11.5-14.5); WBC 8.25 X 10*3/uL (4.50-10.00)
[2022-08-29 02:26] LABS: % Iron Saturation 12.86 (12.00-45.00)
== END | disposition home or self-care (01) ==
LOC: LABWHC1 15:11
PROVIDERS: ATTEND Internal Medicine
DX: N18.32 Chronic kidney disease, stage 3b (principal); D64.9 Anemia, unspecified
CPT/HCPCS: 36415; 82728; 83540; 83550; 85025

== ENCOUNTER → 2022-09-05 | Outpatient (CLI) | payer BC ==
--- NOTE | 2022-09-05 08:00 | US ---
EXAMINATION TYPE: US carotid duplex BILAT DATE OF EXAM: 09/05/2022 COMPARISON: NONE CLINICAL INDICATION: Female, 61 years old with history of D50.9 IRON DEFICIENCY, R42 DIZZINESS GIDDIN ESS, I1; Dizziness. TECHNIQUE: Carotid duplex ultrasound examination. Indirect Doppler criteria was utilized. FINDINGS: EXAM MEASUREMENTS: RIGHT: Peak Systolic Velocity (PSV) cm/sec ----- Right CCA: 80.9 ----- Right ICA: 107 ----- Right ECA: 82.8 ICA/CCA ratio: 1.3 RIGHT: End Diastole cm/sec ----- Right CCA: 27.2 ----- Right ICA: 35.2 ----- Right ECA: 11.5 LEFT: Peak Systolic Velocity (PSV) cm/sec ----- Left CCA: 104 ----- Left ICA: 124 ----- Left ECA: 81.6 ICA/CCA ratio: 1.2 LEFT: End Diastole cm/sec ----- Left CCA: 20.1 ----- Left ICA: 46.6 ----- Left ECA: 0 VERTEBRALS (direction of flow): Right Vertebral: Antegrade Left Vertebral: Antegrade Rhythm: Normal DIGITAL MEDIA ANALYST NOTES: No significant stenosis seen IMPRESSION: Less than 50% stenosis of the bilateral carotid bifurcations. Criteria for Assigning % of Stenosis / Diameter reduction (Estimation based on the indirect measurements of the internal carotid artery velocities (ICA PSV). 1. Normal (no stenosis)=ICA PSV < 125 cm/s: ratio < 2.0: ICA EDV<40 cm/s. 2. Less than 50% stenosis=ICA PSV < 125 cm/s: ratio < 2.0: ICA EDV<40 cm/s. 3. 50 to 69% stenosis=ICA PSV of 125 to 230 cm/s: ration 2.0 ? 4.0: ICA EDV 40-100 cm/s. 4. Greater than 70% stenosis to near occlusion= ICA PSV > 230 cm/s: ratio > 4.0: ICA EDV > 100 cm/s. 5. Near occlusion= ICA PSV velocities may be low or undetectable: variable ratio and ICA EDV. 6. Total occlusion=unable to detect flow.
--- NOTE | 2022-09-05 08:02 | US ---
EXAMINATION TYPE: US abdomen limited DATE OF EXAM: 09/05/2022 COMPARISON: NONE CLINICAL INDICATION: Female, 61 years old with history of D50.9 IRON DEFICIENCY, R42 DIZZINESS GIDDIN ESS, I1; Pain nausea and vomiting. Exam limitations due to body habitus and bowel gas. TECHNIQUE: Multiple sonographic images of the right upper quadrant are obtained. FINDINGS: EXAM MEASUREMENTS: Liver Length: 13.4 cm Gallbladder Wall: .2 cm CBD: .3 cm Right Kidney: 9.5 x 4.7 x 4.3 cm PHOTOGRAPHY EDITOR NOTES: Pancreas: wnl Liver: Anechoic area left lobe 1.7 x 1.2 x 1.4 cm. Gallbladder: Multiple hyperechoic areas seen question polyps. Measuring up to 3 mm. Evidence for sonographic Shaw's sign: No CBD: wnl Right Kidney: Multiple echogenic areas seen lower pole. IMPRESSION: 1. Multiple hyperechoic foci along the gallbladder wall favored represent polyps versus adherent gal lstones. Findings were seen on prior in 2017. No suspicious masses. 2. No evidence for acute process. 3. Hepatic cyst. 4. Right lower pole prominent renal sinus vascular nonshadowing calculi.
--- NOTE | 2022-09-05 10:44 | CA ---
Transthoracic Echo Report Name: Aydee Kyle Age: 61 Gender: F : 1960 Exam Date: 09/05/2022 08:37 Exam Location: [facility] Ht (in): 65 Wt (lb): 242 Ordering Physician: Brayan Ni DO Attending/Referring Phys: Grain Handler Hammad Breaux, CHANO Procedure CPT: Indications: D50.9 IRON DEFICIENCY, R42 DIZZINESS GIDDINESS, I1 Cardiac Hx: HTN; Obesity; Technical Quality: Fair Contrast 1: Total Dose (mL): Contrast 2: Total Dose (mL): MEASUREMENTS (Male / Female) Normal Values 2D ECHO LV Diastolic Diameter PLAX 3.4 cm 4.2 - 5.9 / 3.9 - 5.3 cm LV Systolic Diameter PLAX 2.3 cm LV Fractional Shortening PLAX 31.1 % IVS Diastolic Thickness 1.3 cm 0.6 - 1.0 / 0.6 - 0.9 cm IVS Systolic Thickness 1.5 cm LVPW Diastolic Thickness 1.3 cm 0.6 - 1.0 / 0.6 - 0.9 cm LVPW Systolic Thickness 1.4 cm LV Relative Wall Thickness 0.8 RV Internal Dim ED PLAX 3.1 cm LVOT Diameter 1.8 cm LA Systolic Diameter LX 2.6 cm 3.0 - 4.0 / 2.7 - 3.8 cm LV Diastolic Volume MOD BP 129.7 cm??? 67 - 155 / 56 - 104 cm??? LV Systolic Volume MOD BP 59.7 cm??? 22 - 58 / 19 - 49 cm??? LV Ejection Fraction MOD BP 53.9 % >= 55 % LV Stroke Volume MOD BP 70.0 cm??? LV Diastolic Volume MOD 4C 127.3 cm??? LV Systolic Volume MOD 4C 49.9 cm??? LV Ejection Fraction MOD 4C 60.8 % LV Stroke Volume MOD 4C 77.3 cm??? LV Diastolic Length 4C 8.6 cm LV Systolic Length 4C 6.2 cm LV Diastolic Volume MOD 2C 118.7 cm??? LV Systolic Volume MOD 2C 69.8 cm??? LV Ejection Fraction MOD 2C 41.2 % LV Stroke Volume MOD 2C 49.0 cm??? LV Diastolic Length 2C 7.6 cm LV Systolic Length 2C 6.6 cm M-MODE LV Diastolic Diameter MM 5.0 cm 4.2 - 5.9 / 3.9 - 5.3 cm LV Diastolic Volume MM Teich 120.2 cm??? LV Systolic Diameter MM 3.3 cm LV Systolic Volume MM Teich 43.7 cm??? LV Fractional Shortening MM 34.7 % 25 - 43 / 27 - 45 % LV Ejection Fraction MM Teich 63.6 % LV Stroke Volume MM Teich 76.5 cm??? IVS Diastolic Thickness MM 0.9 cm 0.6 - 1.0 / 0.6 - 0.9 cm IVS Systolic Thickness MM 1.2 cm LVPW Diastolic Thickness MM 1.3 cm 0.6 - 1.0 / 0.6 - 0.9 cm LVPW Systolic Thickness MM 1.9 cm LV Relative Wall Thickness MM 0.4 0.24 - 0.42 / 0.22 - 0.42 LVMW Fractional Shortening MM 15.6 % 14 - 22 / 15 - 23 % LV Mass MM 209.6 g 88 - 224 / 67 - 162 g LV Mass Index MM 93.4 g/m??? 49 - 115 / 43 - 95 g/m??? RV Diastolic Diameter MM 1.7 cm Aortic Root Diameter MM 3.2 cm LA Systolic Diameter MM 4.1 cm LA Ao Ratio MM 1.3 MV E Point Septal Separation 1.0 cm AV Cusp Separation MM 1.4 cm DOPPLER AV Peak Velocity 156.9 cm/s AV Peak Gradient 9.8 mmHg MV Deceleration Lynn 637.3 cm/s??? MR Peak Velocity 161.2 cm/s MR Peak Gradient 10.4 mmHg Mitral E Point Velocity 104.5 cm/s Mitral A Point Velocity 89.2 cm/s Mitral E to A Ratio 1.2 MV Deceleration Time 163.9 ms MV E' Velocity 15.2 cm/s Mitral E to MV E' Ratio 6.9 TR Peak Velocity 275.9 cm/s TR Peak Gradient 30.5 mmHg Right Ventricular Systolic Press 40.5 mmHg PV Peak Velocity 118.0 cm/s PV Peak Gradient 5.6 mmHg FINDINGS Left Ventricle Left ventricular ejection fraction is estimated at 50-55%. Borderline left ventricular hypertrophy. Grade 2 diastolic dysfunction. Normal systolic function. Right Ventricle Normal right ventricular size and function. RVSP_ 40 mm Hg Right Atrium Normal right atrial size. Left Atrium Mild left atrial dilatation. Mitral Valve Mitral valve thickened. Mild mitral regurgitation. Aortic Valve Trileaflet aortic valve. Diffuse thickening (sclerosis) of the aortic valve cusps without reduced excursion. Tricuspid Valve Cylv-[id number] tricuspid regurgitation. Pulmonic Valve Structurally normal pulmonic valve. Trace pulmonic regurgitation. Pericardium Normal pericardium. No pericardial effusion. Aorta Normal size aortic root and proximal ascending aorta. CONCLUSIONS Normal LV systolic function Aortic sclerosis with no stenosis or insufficiency Previewed by: Dr. Dragan Sanchez MD (Electronically Signed) Final Date: 05 September 2022 10:43
== END | disposition home or self-care (01) ==
LOC: RADUSWWP 06:54
PROVIDERS: ATTEND Family Medicine
DX: I65.23 Occlusion and stenosis of bilateral carotid arteries (principal); K76.89 Other specified diseases of liver; N28.89 Other specified disorders of kidney and ureter; D50.9 Iron deficiency anemia, unspecified; I10 Essential (primary) hypertension; E66.9 Obesity, unspecified
CPT/HCPCS: 76705; 93306; 93880

== ENCOUNTER → 2022-09-25 | Outpatient (CLI) | payer BC ==
--- NOTE | 2022-09-25 15:38 | NM ---
EXAMINATION TYPE: NM hepatobiliary w EF DATE OF EXAM: 09/25/2022 COMPARISON: NONE CLINICAL INDICATION: Female, 61 years old with history of R10.811; TECHNIQUE: After the intravenous administration of 5.13 mCi Tc 99m Mebrofenin hepatobiliary scintigra phy is performed. Immediate images post injection. FINDINGS: There is satisfactory initial accumulation of tracer by the liver. The gallbladder is visualized wit hin 10 minutes. The small bowel activity is noted within a minutes. At one hour 8 ounces of oral en sure plus is given to mimic CCK and gallbladder ejection fraction is calculated at 85 %, elevated abo ve the expected range. IMPRESSION: 1. No scintigraphic evidence for acute/chronic cholecystitis or biliary dyskinesia. 2. Increased gallbladder ejection fraction of 85% may be seen in the setting of gallbladder hyperkine sis.
== END | disposition home or self-care (01) ==
LOC: RADNMMAIN 06:53
PROVIDERS: ATTEND Family Medicine
DX: R10.811 Right upper quadrant abdominal tenderness (principal); R93.3 Abnormal findings on diagnostic imaging of other parts of digestive tract
CPT/HCPCS: 78226; A9537

== ENCOUNTER → 2022-09-26 | Outpatient (CLI) | payer BC ==
--- NOTE | 2022-09-26 12:47 | XR ---
EXAMINATION TYPE: XR chest 2V DATE OF EXAM: 09/26/2022 11:46 AM COMPARISON: 09/24/2021 TECHNIQUE: XR chest 2V Frontal and lateral views of the chest. CLINICAL INDICATION:Female, 61 years old with history of J181 LOBAR PNEUMONIA; FINDINGS: Lungs/Pleura: There is no evidence of pleural effusion, focal consolidation, or pneumothorax. Pulmonary vascularity: Unremarkable. Heart/mediastinum: Cardiomediastinal silhouette is unremarkable. Musculoskeletal: No acute osseous pathology. Post arthroplasty changes of the left proximal humerus. IMPRESSION: No acute cardiopulmonary disease/process.
== END | disposition home or self-care (01) ==
LOC: RADXRYALE 11:33
PROVIDERS: ATTEND Family Medicine
DX: J18.1 Lobar pneumonia, unspecified organism (principal)
CPT/HCPCS: 71046

== ENCOUNTER → 2022-10-10 | Outpatient (CLI) | payer BC ==
[2022-10-10 14:45] LABS: Appearance,Urine Cloudy (Clear); Bilirubin,Urine Negative (Negative); Blood,Urine Trace (Negative); Color,Urine Yellow (Yellow); Ketones,Urine Negative (Negative); Nitrite,Urine Negative (Negative); Specific Gravity,Urine 1.018 (1.001-1.030); Urobilinogen,Urine 0.2 (0.2,1.0)
[2022-10-10 14:50] LABS: HCT 32.4 % (37.2-46.3); HGB 9.9 g/dL (12.0-15.0); MCH 30.3 pg (27.0-32.0); MCHC 30.6 g/dL (32.0-37.0); MCV 99.1 fL (80.0-97.0); Mean Platelet Volume 10.4 fL (9.5-12.2); NRBC Per 100 WBC 0 /100 WBCS (0.0-0.0); Platelet Count 214 X 10*3/uL (140-440); RBC 3.27 X 10*6/uL (4.10-5.20); RDW 13.5 % (11.5-14.5); WBC 8.58 X 10*3/uL (4.50-10.00)
[2022-10-10 15:16] LABS: % Iron Saturation 24.61 (12.00-45.00); African American GFR (CKD) 34.8 (60.0-200.0); Albumin/Globulin Ratio 1.69 (1.60-3.17); Anion Gap 9.9 mmol/L (10.00-18.00); BUN/Creat Ratio 17.92 Ratio (12.00-20.00); Blood Urea Nitrogen 31.9 mg/dL (9.0-27.0); Calcium 9.1 mg/dL (8.7-10.3); Carbon Dioxide 23.8 mmol/L (20.0-27.5); Globulin 2.3 g/dL (1.6-3.3); Non-African American GFR(CKD) 30.1 (60.0-200.0); Phosphorus 3.4 mg/dL (2.4-5.1); Potassium 5.4 mmol/L (3.5-5.5); Total Bilirubin 0.3 mg/dL (0.30-1.20); Total Protein 6.3 g/dL (6.2-8.2); Uric Acid 6.7 mg/dL (2.9-7.7)
[2022-10-10 15:22] LABS: Bacteria,Urine 4+ /HPF (None Seen)
[2022-10-10 20:31] LABS: Microalbumin Creatinine Ratio <30 mg/g Creat (0-30)
== END | disposition home or self-care (01) ==
LOC: LABWHC1 10:40
PROVIDERS: ATTEND Internal Medicine
DX: N18.32 Chronic kidney disease, stage 3b (principal); D63.1 Anemia in chronic kidney disease; N39.0 Urinary tract infection, site not specified; E21.3 Hyperparathyroidism, unspecified; E55.9 Vitamin D deficiency, unspecified; M10.9 Gout, unspecified; R80.9 Proteinuria, unspecified
CPT/HCPCS: 36415; 80053; 81001; 82043; 82306; 82570; 82728; 83540; 83550; 83735; 84100; 84550; 85027

== ENCOUNTER 2022-10-26 06:12 | Day surgery (SDC) | payer BC ==
[2022-10-25 12:13] VITALS: BMI 40.7
--- NOTE | 2022-10-26 06:06 | P.GSHP ---
History of Present Illness H&P Date: 10/26/22 CHIEF COMPLAINT: Cholecystitis HISTORY OF PRESENT ILLNESS: The patient is a 62-year-old female who presents with history of epigastric including right upper quadrant abdominal pain. She underwent diagnostic studies for her gallbladder. Separately her clinical picture was consistent with cholecystitis. Now she presents for surgical intervention. PAST MEDICAL HISTORY: Please see list PAST SURGICAL HISTORY: Please see list MEDICATIONS: Please see list ALLERGIES: Please see list SOCIAL HISTORY: Please see list FAMILY HISTORY: Please see list REVIEW OF ORGAN SYSTEMS: CONSTITUTIONAL: No reports of fevers or chills. HEENT: Denies any troubles with the vision or hearing. ENDOCRINE: No reports of hypothyroidism. No diabetes. RESPIRATORY: No recent pneumonias. CARDIOVASCULAR: Denies chest pain or palpitations GI: No blood in stools or constipation. MUSCULOSKELETAL: Has occasional joint pain including back pain. NEURO: No seizure disorders or headaches. No recent stroke. PSYCH: No depression or suicidal ideation. GENITOURINARY: No active blood in urine. No urinary hesitancy. HEMATOLOGIC: No personal or family history of DVTs or pulmonary emboli. SKIN: No skin cancer. PHYSICAL EXAM: VITAL SIGNS: Afebrile vital signs stable GENERAL: Well-developed pleasant in no acute distress. HEENT: No scleral icterus. Extraocular movements grossly intact. Moist buccal mucosa. NECK: Supple without lymphadenopathy. CHEST: Unlabored respirations. Equal bilateral excursions. CARDIOVASCULAR: Regular rate regular rhythm rhythm. Distal 2+ pulses. ABDOMEN: Soft, nondistended. Tender along the epigastrium and right upper quadrant. MUSCULOSKELETAL: No clubbing, cyanosis, or edema. NEURO: Cranial nerves II to XII within normal limits. No focal or lateralizing signs. PSYCH: Alert and oriented to person, place and time. SKIN: Well-perfused good skin turgor. ASSESSMENT: 1. Epigastric and right upper quadrant abdominal pain 2. Chronic cholecystitis 3. Symptomatic gallstones. PLAN: 1. Will need a robotic cholecystectomy possible open. Benefits and risks were described. 2. Heparin for DVT prophylaxis 5000 units. 3. Antibiotic prophylaxis. 4. CBC and CMP on day of procedure 5. Non-narcotic pre and post op pain management reviewed. Past Medical History Past Medical History: Hypertension, Osteoarthritis (OA), Renal Disease Additional Past Medical History / Comment(s): FREQ UTI'S. SJORGREN'S. IBS. STAGE III KIDNEY DISEASE History of Any Multi-Drug Resistant Organisms: None Reported Past Surgical History: Appendectomy, Bladder Surgery, Hysterectomy, Joint Replacement, Orthopedic Surgery, Tonsillectomy Additional Past Surgical History / Comment(s): THYROIDECTOMY-PARTIAL. RT FOOT SX. CORTISONE INJECTION LT KNEE. LEFT KNEE REPLACED. LEFT SHOULDER REPLACE. LEFT OVARIAN MASS REMOVED Past Anesthesia/Blood Transfusion Reactions: Postoperative Nausea & Vomiting (PONV) Additional Past Anesthesia/Blood Transfusion Reaction / Comment(s): ISSUES WITH URINATING AFTER SURGERY Past Psychological History: Anxiety Smoking Status: Never smoker Past Alcohol Use History: None Reported Past Drug Use History: None Reported - Past Family History Father Family Medical History: Cancer Brother(s) Family Medical History: Cancer Daughter(s) Family Medical History: Cancer Additional Family Medical History / Comment(s): THYROID CANCER Medications and Allergies Home Medications Medication Instructions Recorded Confirmed Type Hydroxychloroquine Sulfate 200 mg PO BID 06/28/16 10/25/22 History [Plaquenil] predniSONE 5 mg PO DAILY 06/28/16 10/25/22 History lisinopriL [Zestril] 10 mg PO DAILY 07/01/19 10/25/22 History Gabapentin 300 mg PO HS 09/24/21 10/25/22 History Pramipexole Di-HCl [Mirapex] 0.25 mg PO HS 09/24/21 10/25/22 History Zolpidem [Ambien] 10 mg PO HS 09/24/21 10/25/22 History Ondansetron [Zofran] 4 mg PO Q8HR PRN 10/25/22 10/25/22 History tiZANidine HCL 4 mg PO HS 10/25/22 10/25/22 History Allergies Allergy/AdvReac Type Severity Reaction Status Date / Time Iodinated Contrast Media Allergy Anaphylaxis Verified 10/25/22 11:52 [Iodinated Contrast Media - Oral and] Sulfa (Sulfonamide AdvReac Nausea & Verified 10/25/22 11:52 Antibiotics) Vomiting
[~2022-10-26 06:12] MED LIST changes: +ACETAMINOPHEN TAB 500 MG TAB PO PRN; +HEPARIN SODIUM,PORCINE/PF 5,000 UNIT/0.5 ML SYRINGE SQ PRN; -LACTATED RINGERS 1,000 ML IV SCH; +SCOPOLAMINE 1 MG/72 HR PATCH TRANSDERM STA
[2022-10-26] MEDS ORDERED: SCOPOLAMINE 1 MG/72 HR PATCH TRANSDERM ONE (06:34)
[2022-10-26] MEDS ORDERED: DEXAMETHASONE SOD PHOSPHATE 4 MG/ML 1 ML VIAL IV ONE (06:34)
[2022-10-26] MEDS ORDERED: ONDANSETRON 4 MG/2 ML VIAL IVP ONE (06:34)
[2022-10-26] MEDS ORDERED: LACTATED RINGERS 1,000 ML IV SCH (06:34)
[2022-10-26] MEDS ORDERED: MIDAZOLAM 2 MG/2 ML VIAL IV PRN (06:34)
[2022-10-26] MEDS ORDERED: HYDROmorphone 0.5 MG/0.5 ML SYRINGE IVP PRN (07:00)
[2022-10-26] MEDS ORDERED: LACTATED RINGERS 1,000 ML IV ONE (07:02)
[2022-10-26 07:09] LABS: Basophils % (A) 0 %; Eosinophils # (A) 0.3 k/uL (0-0.7); Eosinophils % (A) 4 %; HCT 36.1 % (34.0-46.0); HGB 11.7 gm/dL (11.4-16.0); Hypochromasia Slight; Lymphocytes # (A) 1.7 k/uL (1.0-4.8); Lymphocytes % (A) 20 %; MCH 31.1 pg (25.0-35.0); MCHC 32.3 g/dL (31.0-37.0); MCV 96.5 fL (80.0-100.0); Mean Platelet Volume 7.7; Monocytes # (A) 0.3 k/uL (0-1.0); Monocytes % (A) 4 %; Neutrophils # (A) 6.1 k/uL (1.3-7.7); Neutrophils % (A) 72 %; Platelet Count 209 k/uL (150-450); RBC 3.74 m/uL (3.80-5.40); RDW 13.4 % (11.5-15.5); WBC 8.5 k/uL (3.8-10.6)
[2022-10-26 07:34] LABS: ALT 19 U/L (4-34); AST 28 U/L (14-36); African American GFR (CKD) 28 (>60 ml/min/1.73 sqM); Albumin 4.2 g/dL (3.5-5.0); Alkaline Phosphatase 80 U/L (38-126); Anion Gap 9 mmol/L; Blood Urea Nitrogen 37 mg/dL (7-17); Calcium 9.1 mg/dL (8.4-10.2); Carbon Dioxide 22 mmol/L (22-30); Chloride 108 mmol/L (98-107); Glucose 80 mg/dL (74-99); Non-African American GFR(CKD) 25 (>60 ml/min/1.73 sqM); Potassium 4.7 mmol/L (3.5-5.1); Sodium 139 mmol/L (137-145); Total Bilirubin 0.4 mg/dL (0.2-1.3)
[2022-10-26] MEDS ORDERED: PROPOFOL 10 MG/ML 20 ML VIAL IV ONE (07:37)
[2022-10-26] MEDS ORDERED: FAMOTIDINE 20 MG/2 ML VIAL ONE (07:37)
[2022-10-26] MEDS ORDERED: diphenhydrAMINE 50 MG/ML 1 ML VIAL ONE (07:37)
[2022-10-26] MEDS ORDERED: LIDOCAINE 2% INJ 20 MG/ML (2 ML VIAL) ONE (07:37)
[2022-10-26] MEDS ORDERED: MIDAZOLAM 2 MG/2 ML VIAL ONE (07:37)
[2022-10-26] MEDS ORDERED: ROCURONIUM 10 MG/ML (5 ML VIAL) IV ONE (07:37)
[2022-10-26] MEDS ORDERED: INDOCYANINE GREEN 25 MG VIAL IV ONE (07:37)
[2022-10-26] MEDS ORDERED: HYDROCORTISONE SUCCINATE 100 MG/2 ML VIAL ONE (07:37)
[2022-10-26] MEDS ORDERED: fentaNYL (PF) 50 MCG/ML 2 ML AMP ONE (07:37)
[2022-10-26] MEDS ORDERED: SUCCINYLCHOLINE CHLORIDE 200 MG/10 ML VIAL IV ONE (07:37)
[2022-10-26] MEDS: TAMSULOSIN 0.4 MG CAP.ER.24H PO ONE ×2 (07:37→11:19)
[2022-10-26] MEDS ORDERED: SUGAMMADEX SODIUM 200 MG/2 ML SDV IV ONE (07:37)
[2022-10-26] MEDS ORDERED: LIDOCAINE 0.5%-EPI 1:200,000 50 ML VIAL SQ ONE (08:03)
[2022-10-26 09:02] VITALS: TEMP 97.4
[2022-10-26] MEDS ORDERED: ACETAMINOPHEN TAB 500 MG TAB ONE (10:30)
[2022-10-26] MEDS ORDERED: ACETAMINOPHEN TAB 500 MG TAB PO ONE (10:31)
[2022-10-26 11:15] VITALS: BP 123/86; PULSE 69; RESP 16
--- NOTE | 2022-10-29 10:04 | P.OP ---
Date of Procedure: 10/26/22 Description of Procedure: SURGEON: AYDEE KELLY MD PREOPERATIVE DIAGNOSES: 1. Symptomatic gallstones 2. Morbid obesity due to excess calories, BMI 40.8 3. Postop urinary retention 4. Hypertensive heart disease 5. Sjogren's disease 6. Irritable bowel syndrome 7. Stage III chronic renal disease due to hypertensive heart disease 8. Postop nausea vomiting POSTOPERATIVE DIAGNOSES: 1. Symptomatic gallstones 2. Morbid obesity due to excess calories, BMI 40.8 3. Postop urinary retention 4. Hypertensive heart disease 5. Sjogren's disease 6. Irritable bowel syndrome 7. Stage III chronic renal disease due to hypertensive heart disease 8. Postop nausea vomiting 9. Fatty liver disease with hepatomegaly OPERATION: 1. Robotic-assisted da Kranthi Xi laparoscopic cholecystectomy, multiport with FIREFLY ESTIMATED BLOOD LOSS: 5 mL. SPECIMENS REMOVED: Gallbladder. COMPLICATIONS: None. OPERATIVE FINDINGS: 1. Fatty liver disease with hepatomegaly INDICATIONS: The patient is a 62-year-old female who presented with symptomatic gallstones. Robotic assisted laparoscopic approach was described. Benefits and risks of the procedure including but not limited to bleeding, infection, injury to the biliary tree was described. Informed consent was obtained. DESCRIPTION OF PROCEDURE: Patient was brought to the operating room, placed in supine position. After general induction, the abdomen had been prepped and draped in standard sterile fashion. The robotic da Kranthi XI system was primed. After a timeout protocol was performed, the patient had been prepped and draped in standard sterile fashion. The patient was injected with indocyanine green. A 5 mm 0 degrees laparoscopic trocar entry was performed along the left upper quadrant. The abdomen insufflated to 15 mmHg pressure which was tolerated well. Diagnostic laparoscopy demonstrated no injury to bowel viscera or mesentery. The liver surface was unremarkable. Next, two 8 mm robotic ports were placed along the right upper abdomen. The camera 8-mm port was maintained along the epigastrium. An 8 mm port was placed along the left upper abdominal wall after exchanging the 5 mm port. Please note that the ports were placed at least 10 to 15 cm away from the target anatomy of the gallbladder. The robot was docked along the left lateral abdomen. The patient was repositioned in reverse Trendelenburg position. Using a grasper for arm 3, a grasper for arm 4, including hook cautery for arm 1, the robotic system was docked and primed as described. Instruments were interchanged by the asset protection assistant including hook cautery, Bovie cautery and clip appliers. I had sat at the console. Dome down technique was performed from the gallbladder fundus towards the infundibulum along the hepatic fossa. Next attention was brought to the infundibulum and cystic structures. The infundibulum and cystic duct were dissected free from surrounding tissues. The cystic duct was isolated. FIREFLY was used to identify the cystic artery and cystic structures. A critical view of safety was obtained. Large PLASTIC clips were used throughout the entire case. Using a clip wallpaper printer helper, 2 clips were placed at the junction of the infundibulum and cystic duct. The cystic duct was divided between clips. Next, the cystic artery was similarly clipped and cauterized. Electro-Bovie cautery was used to remove the gallbladder from the hepatic fossa. Hemostasis was checked and found to be adequate. The robot was undocked. I re-scrubbed into the case. Using a 10 mm Endo Catch bag via the left upper quadrant incision, the specimen was removed from the abdominal cavity. All pneumoperitoneum instruments were evacuated from the abdominal cavity. The incisions were reapproximated using 4-0 Monocryl in an interrupted subcuticular fashion. Fascial defects were less than 8 mm in size. Please note along the trocar sites, local anesthetic was placed as a field block prior to insertion of all instruments. Liquid glue was applied to the skin. At the end of the procedure needle, sponge, and instrument count had been verified correct by the operating room surgical technician. The patient was transferred to postanesthesia care unit in stable condition. Intraoperative films were shared with the patient's family. Plan - Discharge Summary Discharge Rx Participant: No New Discharge Prescriptions: New Tamsulosin [Flomax] 0.4 mg PO DAILY #5 cap Simethicone [Gas-X] 125 mg PO AC-TID PRN #20 capsule PRN Reason: Pain Acetaminophen Tab [Tylenol Tab] 1,000 mg PO Q6HR PRN #30 tablet PRN Reason: Pain Continue predniSONE 5 mg PO DAILY Hydroxychloroquine Sulfate [Plaquenil] 200 mg PO BID lisinopriL [Zestril] 10 mg PO DAILY Zolpidem [Ambien] 10 mg PO HS Pramipexole Di-HCl [Mirapex] 0.25 mg PO HS Gabapentin 300 mg PO HS Ondansetron [Zofran] 4 mg PO Q8HR PRN PRN Reason: Nausea tiZANidine HCL 4 mg PO HS Discharge Medication List Hydroxychloroquine Sulfate [Plaquenil] 200 mg PO BID 06/28/16 [History] predniSONE 5 mg PO DAILY 06/28/16 [History] lisinopriL [Zestril] 10 mg PO DAILY 07/01/19 [History] Gabapentin 300 mg PO HS 09/24/21 [History] Pramipexole Di-HCl [Mirapex] 0.25 mg PO HS 09/24/21 [History] Zolpidem [Ambien] 10 mg PO HS 09/24/21 [History] Ondansetron [Zofran] 4 mg PO Q8HR PRN 10/25/22 [History] tiZANidine HCL 4 mg PO HS 10/25/22 [History] Acetaminophen Tab [Tylenol Tab] 1,000 mg PO Q6HR PRN #30 tablet 10/26/22 [Rx] Simethicone [Gas-X] 125 mg PO AC-TID PRN #20 capsule 10/26/22 [Rx] Tamsulosin [Flomax] 0.4 mg PO DAILY #5 cap 10/26/22 [Rx] Follow up Appointment(s)/Referral(s): Aydee Kelly MD [STAFF PHYSICIAN] - 10/30/22 9:00 am (Appt already made...telehealth, dr calls between 8 am to 8 pm) Patient Instructions/Handouts: *[facility] - Laparoscopic Cholecystectomy Discharge Instructions, *[facility] - (Anesthesia) Discharge Instructions Outpatient Surgery, *[facility] - Scopalamine Patch Instructions, Low Fat Diet (DC) Activity/Diet/Wound Care/Special Instructions: [facility]AD[facility] - DR WILL CALL YOU BETWEEN 8 am to 8 pm Recommend low-fat diet for the next 2 days. No lifting over 10 pounds in 2 weeks until November 09. May shower. No bath tub soaks for two weeks until November 09. Diet as tolerated. Use Tylenol, simethicone and ibuprofen or Aleve scheduled for the next 24-48 hours for best pain relief. Use ice along incisions for today to prevent swelling. Discharge Disposition: HOME SELF-CARE
== END 2022-10-26 11:44 | disposition home or self-care (01) ==
LOC: OR 06:12
PROVIDERS: ATTEND Surgery Plastic and Reconstructive Surgery
DX: K80.10 Calculus of gallbladder with chronic cholecystitis without obstruction (principal); M35.00 Sjogren syndrome, unspecified; K58.9 Irritable bowel syndrome, unspecified; I12.9 Hypertensive chronic kidney disease with stage 1 through stage 4 chronic kidney disease, or unspecified chronic kidney disease; N18.30 Chronic kidney disease, stage 3 unspecified; K76.0 Fatty (change of) liver, not elsewhere classified; G89.18 Other acute postprocedural pain; M19.90 Unspecified osteoarthritis, unspecified site; Z87.440 Personal history of urinary (tract) infections; E66.01 Morbid (severe) obesity due to excess calories; Z68.41 Body mass index [BMI] 40.0-44.9, adult; Z90.49 Acquired absence of other specified parts of digestive tract; Z90.710 Acquired absence of both cervix and uterus; Z90.89 Acquired absence of other organs; Z98.890 Other specified postprocedural states; Z79.899 Other long term (current) drug therapy; Z79.52 Long term (current) use of systemic steroids; Z88.2 Allergy status to sulfonamides
CPT/HCPCS: 88304; 80053; 85025; 47563; J2250; J0330; J1200; J1100; J1720; J0690; J2405; J3010; J2704; J1170; J1644; J2001

== ENCOUNTER → 2023-04-26 | Outpatient (CLI) | payer BC ==
[2023-04-26 16:01] LABS: % Iron Saturation 23.55 (12.00-45.00); ALT 12 U/L (8-44); AST 22 U/L (13-35); Albumin 4.1 g/dL (3.8-4.9); Albumin/Globulin Ratio 1.78 Ratio (1.60-3.17); Alkaline Phosphatase 69 U/L (41-126); Blood Urea Nitrogen 42.6 mg/dL (9.0-27.0); Calcium 9.5 mg/dL (8.7-10.3); Carbon Dioxide 19.1 mmol/L (21.6-31.8); Chloride 109 mmol/L (96-109); Globulin 2.3 g/dL (1.6-3.3); Glucose 90 mg/dL (70-110); Iron 65 UG/DL (50-170); Magnesium 1.9 mg/dL (1.5-2.4); Phosphorus 3.2 mg/dL (2.4-5.1); Sodium 139 mmol/L (135-145); Total Bilirubin 0.3 mg/dL (0.3-1.2); Total Iron Binding Capacity 276 UG/DL (228-460); Total Protein 6.4 g/dL (6.2-8.2); Uric Acid 6.8 mg/dL (2.9-7.7)
[2023-04-26 16:06] LABS: Appearance,Urine Clear (Clear); Bilirubin,Urine Negative (Negative); Blood,Urine Negative (Negative); Color,Urine Yellow (Yellow); Ketones,Urine Negative (Negative); Nitrite,Urine Negative (Negative); Specific Gravity,Urine 1.018 (1.001-1.030); Urobilinogen,Urine 0.2 E.U./DL
[2023-04-26 16:15] LABS: Bacteria,Urine None Seen (None Seen)
[2023-04-26 18:50] LABS: Microalbumin Creatinine Ratio <11 mg/g Cr (0-30)
== END | disposition home or self-care (01) ==
LOC: LABWHC1 11:44
PROVIDERS: ATTEND Internal Medicine
DX: E55.9 Vitamin D deficiency, unspecified (principal); D63.1 Anemia in chronic kidney disease; N39.0 Urinary tract infection, site not specified; N18.32 Chronic kidney disease, stage 3b; N25.81 Secondary hyperparathyroidism of renal origin; M10.9 Gout, unspecified
CPT/HCPCS: 36415; 80053; 81001; 82043; 82306; 82570; 82728; 83540; 83550; 83735; 83970; 84100; 84550

== ENCOUNTER → 2023-05-10 | Outpatient (CLI) | payer BC ==
--- NOTE | 2023-05-10 12:20 | CT ---
EXAMINATION TYPE: CT facial bones wo con DATE OF EXAM: 05/10/2023 COMPARISON: 07/01/2020 HISTORY: chronic sinusitis, headaches CT DLP: 603 mGycm Automated exposure control for dose reduction was used. TECHNIQUE: CT scan of the sinuses is performed without contrast, axial images are obtained, coronal r eformatted images are also reviewed. FINDINGS: The paranasal sinuses including the frontal, ethmoid, sphenoid, and maxillary sinuses bilaterally a re well-aerated without abnormal opacification. The ostiomeatal complex is patent bilaterally on the coronal images. There are no air-fluid levels to suggest acute sinusitis. There are no mucous retent ion cysts or polyps to suggest chronic sinusitis. Visualized portion of mastoid air cells show no abnormal opacification. The globes are intact bilate rally. IMPRESSION: The sinuses are clear and the ostiomeatal complex is patent bilaterally. No interval linda nge compared to previous
== END | disposition home or self-care (01) ==
LOC: RADCTMAIN 08:01
PROVIDERS: ATTEND Family Medicine
DX: J01.90 Acute sinusitis, unspecified (principal); H92.09 Otalgia, unspecified ear; M32.9 Systemic lupus erythematosus, unspecified
CPT/HCPCS: 70486

== ENCOUNTER 2023-08-21 07:03 | Day surgery (SDC) | payer BC ==
[2023-08-21] MEDS: LACTATED RINGERS 1,000 ML IV SCH (08:00)
[2023-08-21] MEDS: HYDROCORTISONE SUCCINATE 100 MG/2 ML VIAL IV STA (08:13)
[2023-08-21] MEDS ORDERED: PROPOFOL 10 MG/ML 20 ML VIAL IV ONE (08:34)
[2023-08-21] MEDS ORDERED: LIDOCAINE 1% INJ 10MG/ML (20 ML MDV) ONE (08:34)
[2023-08-21 08:44] VITALS: TEMP 97
--- NOTE | 2023-08-21 08:47 | P.PCN ---
Date of Procedure: 08/21/23 Procedure(s) Performed: BRIEF HISTORY: Patient is a 62-year-old, pleasant, White female scheduled for an upper endoscopy as a part of evaluation of epigastric painAnd dysphagia to solids for the last 1 year duration. PROCEDURE PERFORMED: Esophagogastroduodenoscopy With biopsy and dilation. PREOPERATIVE DIAGNOSIS: Epigastric pain and dysphagia to solids for the last 1 year duration. IV sedation per anesthesia. PROCEDURE: After informed consent was obtained, the patient was brought into the endoscopy unit. IV sedation was administered by Anesthesia under continuous monitoring. Initially the Olympus GIF-140 video endoscope was inserted into the mouth. Esophagus intubated without any difficulty. It was gradually advanced into the stomach and duodenum and carefully examined. The bulb and the second part of the duodenum appeared normal. The scope at this time was withdrawn to the stomach, adequately insufflated with air, and upon careful examination, mucosa of the antrum, Had mild diffuse gastritis and biopsies were done from this area. Mucosabody, cardia and the fundus appeared normal. The scope was then withdrawn into the esophagus. Small hiatal hernia noted.The GE junction was located at 39 cm from the incisors.There was a distal esophageal Stricture that was dilated using 18-20 mm TTS balloon in a sequential fashion for 30 seconds. The mucosa in the mid and distal esophagus had thickened esophageal folds suspicious for eosinophilic esophagitis and multiple biopsies were done from this area. The esophagus appeared normal. There were no erosions or ulcerations seen and the patient tolerated the procedure well. IMPRESSION: 1. Distal esophageal stricture status post balloon dilation using 18-20 mm TTS balloon as described above. 2. Thickened distal esophageal folds suspicious for eosinophilic esophagitis status post multiple biopsies 3. Mild antral gastritis And small hiatal hernia. RECOMMENDATIONS: The findings of this examination were discussed with the patient As well as her family. She'll be started on omeprazole 20 mg Twice daily and follow antireflux measures..She was advised to follow up in office in 2-3 weeks.
[2023-08-21 09:27] VITALS: BP 155/79; PULSE 62; RESP 16
== END 2023-08-21 09:21 | disposition home or self-care (01) ==
LOC: ORWHC2ENDO 07:03
PROVIDERS: ATTEND Internal Medicine Gastroenterology
DX: K21.00 Gastro-esophageal reflux disease with esophagitis, without bleeding (principal); K44.9 Diaphragmatic hernia without obstruction or gangrene; K22.2 Esophageal obstruction; I10 Essential (primary) hypertension; N28.9 Disorder of kidney and ureter, unspecified; Z88.2 Allergy status to sulfonamides; Z91.041 Radiographic dye allergy status; Z90.49 Acquired absence of other specified parts of digestive tract; Z79.899 Other long term (current) drug therapy; Z98.890 Other specified postprocedural states; Z90.710 Acquired absence of both cervix and uterus
CPT/HCPCS: 88305; 43239; 43249; J1720; J2001; J2704; C1726

== ENCOUNTER 2023-11-14 15:37 | Emergency (ER) | payer BC ==
[2023-11-14 15:41] VITALS: TEMP 98
[2023-11-14] MEDS: HYDROmorphone 0.5 MG/0.5 ML SYRINGE IVP STA (17:01)
[2023-11-14 17:02] LABS: Basophils % (A) 0 %; Eosinophils # (A) 0.3 k/uL (0-0.7); Eosinophils % (A) 4 %; HCT 38.1 % (34.0-46.0); HGB 12.2 gm/dL (11.4-16.0); Lymphocytes # (A) 0.6 k/uL (1.0-4.8); Lymphocytes % (A) 9 %; MCH 30.6 pg (25.0-35.0); MCHC 32.1 g/dL (31.0-37.0); MCV 95.5 fL (80.0-100.0); Mean Platelet Volume 7.7; Monocytes # (A) 0.4 k/uL (0-1.0); Monocytes % (A) 5 %; Neutrophils # (A) 6.1 k/uL (1.3-7.7); Neutrophils % (A) 82 %; Platelet Count 194 k/uL (150-450); RBC 3.99 m/uL (3.80-5.40); RDW 13.1 % (11.5-15.5); WBC 7.4 k/uL (3.8-10.6)
[2023-11-14] MEDS: SODIUM CHLORIDE 0.9% 500 ML 500 ML IV STA (17:03)
[2023-11-14] MEDS: ONDANSETRON 4 MG/2 ML VIAL IVP STA (17:03)
[2023-11-14] MEDS: SODIUM CHLORIDE 0.9% 1,000 ML IV STA (17:03)
--- NOTE | 2023-11-14 17:03 | ED ---
General Adult HPI - General Chief complaint: Nausea/Vomiting/Diarrhea Stated complaint: vomiting Time Seen by Provider: 11/14/23 15:47 Source: patient, RN notes reviewed Mode of arrival: ambulatory Limitations: no limitations - History of Present Illness Initial comments: 63-year-old female presents to the emergency department for evaluation of nausea, vomiting, diarrhea. She reports that symptoms started last night. She notes that at that time she also had some right upper abdominal discomfort. She denies documented fever but admits to chills. She also admits to diffuse headache. She took Tylenol for this without relief. Prior abdominal surgeries include cholecystectomy, hysterectomy. Denies any known sick contacts. - Related Data Home Medications Medication Instructions Recorded Confirmed predniSONE 5 mg PO DAILY 06/28/16 10/18/23 lisinopriL [Zestril] 10 mg PO DAILY 07/01/19 10/18/23 Gabapentin 300 mg PO HS 09/24/21 10/18/23 Pramipexole Di-HCl [Mirapex] 0.25 mg PO HS 09/24/21 10/18/23 Zolpidem [Ambien] 10 mg PO HS 09/24/21 10/18/23 tiZANidine HCL 4 mg PO HS 10/25/22 10/18/23 mycophenolate mofetiL [Cellcept] 500 mg PO BID 05/10/23 10/18/23 Sodium Bicarbonate Tab 650 mg PO DIRECTED 08/19/23 10/18/23 Previous Rx's Medication Instructions Recorded Acetaminophen Tab [Tylenol Tab] 1,000 mg PO Q6HR PRN #30 tablet 10/26/22 Metoclopramide [Reglan] 10 mg PO TID PRN #15 tab 11/14/23 Allergies Allergy/AdvReac Type Severity Reaction Status Date / Time Iodinated Contrast Media Allergy Anaphylaxis Verified 11/14/23 15:42 [Iodinated Contrast Media - Oral and] Sulfa (Sulfonamide AdvReac Nausea & Verified 11/14/23 15:42 Antibiotics) Vomiting Review of Systems ROS Statement: Those systems with pertinent positive or pertinent negative responses have been documented in the HPI. ROS Other: All systems not noted in ROS Statement are negative. Past Medical History Past Medical History: Hypertension, Renal Disease Additional Past Medical History / Comment(s): FREQ UTI'S. SJORGREN'S. HAS BEEN HAVING IBS SYMPTOMS SINCE APR 2016. covid vaccinated and had booster 04/02 History of Any Multi-Drug Resistant Organisms: None Reported Past Surgical History: Appendectomy, Bladder Surgery, Hysterectomy, Orthopedic Surgery, Tonsillectomy Additional Past Surgical History / Comment(s): THYROIDECTOMY-PARTIAL. RT FOOT SX. CORTISONE INJECTION LT KNEE Past Anesthesia/Blood Transfusion Reactions: Postoperative Nausea & Vomiting (PONV) Additional Past Anesthesia/Blood Transfusion Reaction / Comment(s): ISSUES WITH URINATING AFTER SURGERY Past Psychological History: Anxiety Smoking Status: Never smoker Past Alcohol Use History: None Reported Past Drug Use History: None Reported - Past Family History Father Family Medical History: Cancer Brother(s) Family Medical History: Cancer Daughter(s) Family Medical History: Cancer Additional Family Medical History / Comment(s): THYROID CANCER General Exam Limitations: no limitations General appearance: alert, in no apparent distress Head exam: Present: atraumatic, normocephalic, normal inspection Eye exam: Present: normal appearance, PERRL, EOMI. Absent: scleral icterus, conjunctival injection, periorbital swelling ENT exam: Present: normal exam, mucous membranes moist Neck exam: Present: normal inspection. Absent: tenderness, meningismus, lymphadenopathy Respiratory exam: Present: normal lung sounds bilaterally. Absent: respiratory distress, wheezes, rales, rhonchi, stridor Cardiovascular Exam: Present: regular rate, normal rhythm, normal heart sounds. Absent: systolic murmur, diastolic murmur, rubs, gallop, clicks GI/Abdominal exam: Present: soft, tenderness (RUQ), normal bowel sounds. Absent: distended, guarding, rebound, rigid Extremities exam: Present: normal inspection, full ROM, normal capillary refill. Absent: tenderness, pedal edema, joint swelling, calf tenderness Back exam: Present: normal inspection Neurological exam: Present: alert, oriented X3 Psychiatric exam: Present: normal affect, normal mood Skin exam: Present: warm, dry, intact, normal color. Absent: rash Course Vital Signs 11/14/23 11/14/23 15:38 18:30 Temperature 98.0 F Pulse Rate 85 88 Respiratory 17 16 Rate Blood Pressure 154/80 141/72 O2 Sat by Pulse 98 98 Oximetry Medical Decision Making - Medical Decision Making Was pt. sent in by a medical professional or institution (, PA, IUSS ANALYST, urgent care, hospital, or senior care...) When possible be specific @ -No Did you speak to anyone other than the patient for history (EMS, parent, family, police, friend...)? What history was obtained from this source @ -No Did you review nursing and triage notes (agree or disagree)? Why? @ -I reviewed and agree with nursing and triage notes Were old charts reviewed (outside hosp., previous admission, EMS record, old EKG, old radiological studies, urgent care reports/EKG's, senior care records)? Report findings @ -No old charts were reviewed Differential Diagnosis (chest pain, altered mental status, abdominal pain women, abdominal pain men, vaginal bleeding, weakness, fever, dyspnea, syncope, headache, dizziness, GI bleed, back pain, seizure, CVA, palpatations, mental health, musculoskeletal)? @ -Differential Abdominal Pain Women: Appendicitis, Cholecystitis, diverticulosis, ischemic bowel, pancreatitis, hepatitis, UTI, gastroenteritis, AAA, incarcerated hernia, bowel obstruction, constipation, inflammatory bowel, hepatitis, peptic ulcer disease, splenic infarction, perforated viscus, vulvitis, ovarian torsion, PID, kidney stone, moustapha centa abruption, this is not meant to be an all-inclusive list EKG interpreted by me (3pts min.). @ -None X-rays interpreted by me (1pt min.). @ -None done CT interpreted by me (1pt min.). @ -None done U/S interpreted by me (1pt. min.). @ -None done What testing was considered but not performed or refused? (CT, X-rays, U/S, labs)? Why? @ -None What meds were considered but not given or refused? Why? @ -None Did you discuss the management of the patient with other professionals (professionals i.e. , PA, IUSS ANALYST, lab, RT, psych nurse, social media manager, black studies professor, teacher, promotions officer, business case analyst)? Give summary @ -No Was smoking cessation discussed for >3mins.? @ -No Was critical care preformed (if so, how long)? @ -No Were there social determinants of health that impacted care today? How? (Homelessness, low income, unemployed, alcoholism, drug addiction, transportation, low edu. Level, literacy, decrease access to med. care, snf, rehab)? @ -No Was there de-escalation of care discussed even if they declined (Discuss DNR or withdrawal of care, Hospice)? DNR status @ -No What co-morbidities impacted this encounter? (DM, HTN, Smoking, COPD, CAD, Cancer, CVA, ARF, Chemo, Hep., AIDS, mental health diagnosis, sleep apnea, morbid obesity)? @ -None Was patient admitted / discharged? Hospital course, mention meds given and route, prescriptions, significant lab abnormalities, going to OR and other pertinent info. @ -Discharge. Patient presented to the emergency department for evaluation of abdominal discomfort, nausea, vomiting, diarrhea x 2 days. Laboratory studies obtained showing no significant for cytosis; creatinine at patient's baseline 1.6, mild transaminitis, lipase within normal limits of 186; UA shows no evidence of infectious process, negative for COVID, influenza, RSV. Patient was provided IV fluid hydration and medication for symptom control while in the emergency department with significant improvement. Patient will be discharged home. She is understanding agreeable with this plan. Patient stable at time of discharge. Case discussed with Dr. Knight Undiagnosed new problem with uncertain prognosis? @ -No Drug Therapy requiring intensive monitoring for toxicity (Heparin, Nitro, Insulin, Cardizem)? @ -No Were any procedures done? @ -No Diagnosis/symptom? @ -Gastroenteritis Acute, or Chronic, or Acute on Chronic? @ -acute Uncomplicated (without systemic symptoms) or Complicated (systemic symptoms)? @ -uncomplicated Side effects of treatment? @ -No Exacerbation, Progression, or Severe Exacerbation? @ -No Poses a threat to life or bodily function? How? (Chest pain, USA, ME, pneumonia, PE, COPD, DKA, ARF, appy, cholecystitis, CVA, Diverticulitis, Homicidal, Suicidal, threat to staff... and all critical care pts) @ -No - Lab Data Result diagrams: 11/14/23 16:54 11/14/23 16:54 Lab Results 11/14/23 11/14/23 11/14/23 Range/Units 16:23 16:54 16:54 WBC 7.4 (3.8-10.6) k/uL RBC 3.99 (3.80-5.40) m/uL Hgb 12.2 (11.4-16.0) gm/dL Hct 38.1 (34.0-46.0) % MCV 95.5 (80.0-100.0) fL MCH 30.6 (25.0-35.0) pg MCHC 32.1 (31.0-37.0) g/dL RDW 13.1 (11.5-15.5) % Plt Count 194 (150-450) k/uL MPV 7.7 Neutrophils % 82 % Lymphocytes % 9 % Monocytes % 5 % Eosinophils % 4 % Basophils % 0 % Neutrophils # 6.1 (1.3-7.7) k/uL Lymphocytes # 0.6 L (1.0-4.8) k/uL Monocytes # 0.4 (0-1.0) k/uL Eosinophils # 0.3 (0-0.7) k/uL Basophils # 0.0 (0-0.2) k/uL Sodium 137 (137-145) mmol/L Potassium 4.9 (3.5-5.1) mmol/L Chloride 109 H (98-107) mmol/L Carbon Dioxide 22 (22-30) mmol/L Anion Gap 6 mmol/L BUN 29 H (7-17) mg/dL Creatinine 1.60 H (0.52-1.04) mg/dL Est GFR (CKD-EPI)AfAm 39 (>60 ml/min/1.73 sqM) Est GFR (CKD-EPI)NonAf 34 (>60 ml/min/1.73 sqM) Glucose 86 (74-99) mg/dL Calcium 9.0 (8.4-10.2) mg/dL Total Bilirubin 0.8 (0.2-1.3) mg/dL AST 43 H (14-36) U/L ALT 38 H (4-34) U/L Alkaline Phosphatase 94 (38-126) U/L Total Protein 6.4 (6.3-8.2) g/dL Albumin 3.8 (3.5-5.0) g/dL Amylase 44 (30-110) U/L Lipase 186 (23-300) U/L Urine Color Light Yellow Urine Appearance Clear (Clear) Urine pH 5.0 (5.0-8.0) Ur Specific [place] 1.021 (1.001-1.035) Urine Protein Trace H (Negative) Urine Glucose (UA) Negative (Negative) Urine Ketones Negative (Negative) Urine Blood Small H (Negative) Urine Nitrite Negative (Negative) Urine Bilirubin Negative (Negative) Urine Urobilinogen <2.0 (<2.0) mg/dL Ur Leukocyte Esterase Small H (Negative) Urine RBC 2 (0-5) /hpf Urine WBC 2 (0-5) /hpf Ur Squamous Epith Cells 5 H (0-4) /hpf Urine Mucus Rare H (None) /hpf Influenza Type A (PCR) (Not Detectd) Influenza Type B (PCR) (Not Detectd) RSV (PCR) (Not Detectd) SARS-CoV-2 (PCR) (Not Detectd) 11/14/23 Range/Units 17:03 WBC (3.8-10.6) k/uL RBC (3.80-5.40) m/uL Hgb (11.4-16.0) gm/dL Hct (34.0-46.0) % MCV (80.0-100.0) fL MCH (25.0-35.0) pg MCHC (31.0-37.0) g/dL RDW (11.5-15.5) % Plt Count (150-450) k/uL MPV Neutrophils % % Lymphocytes % % Monocytes % % Eosinophils % % Basophils % % Neutrophils # (1.3-7.7) k/uL Lymphocytes # (1.0-4.8) k/uL Monocytes # (0-1.0) k/uL Eosinophils # (0-0.7) k/uL Basophils # (0-0.2) k/uL Sodium (137-145) mmol/L Potassium (3.5-5.1) mmol/L Chloride (98-107) mmol/L Carbon Dioxide (22-30) mmol/L Anion Gap mmol/L BUN (7-17) mg/dL Creatinine (0.52-1.04) mg/dL Est GFR (CKD-EPI)AfAm (>60 ml/min/1.73 sqM) Est GFR (CKD-EPI)NonAf (>60 ml/min/1.73 sqM) Glucose (74-99) mg/dL Calcium (8.4-10.2) mg/dL Total Bilirubin (0.2-1.3) mg/dL AST (14-36) U/L ALT (4-34) U/L Alkaline Phosphatase (38-126) U/L Total Protein (6.3-8.2) g/dL Albumin (3.5-5.0) g/dL Amylase (30-110) U/L Lipase (23-300) U/L Urine Color Urine Appearance (Clear) Urine pH (5.0-8.0) Ur Specific [place] (1.001-1.035) Urine Protein (Negative) Urine Glucose (UA) (Negative) Urine Ketones (Negative) Urine Blood (Negative) Urine Nitrite (Negative) Urine Bilirubin (Negative) Urine Urobilinogen (<2.0) mg/dL Ur Leukocyte Esterase (Negative) Urine RBC (0-5) /hpf Urine WBC (0-5) /hpf Ur Squamous Epith Cells (0-4) /hpf Urine Mucus (None) /hpf Influenza Type A (PCR) Not Detected (Not Detectd) Influenza Type B (PCR) Not Detected (Not Detectd) RSV (PCR) Not Detected (Not Detectd) SARS-CoV-2 (PCR) Not Detected (Not Detectd) Disposition Clinical Impression: Gastroenteritis Disposition: HOME SELF-CARE Condition: Stable Instructions (If sedation given, give patient instructions): Acute Nausea and Vomiting (ED), Acute Diarrhea (ED) Additional Instructions: Please follow up with your primary care provider. Return to the emergency department for new or worsening symptoms. Prescriptions: Metoclopramide [Reglan] 10 mg PO TID PRN #15 tab PRN Reason: Nausea Is patient prescribed a controlled substance at d/c from ED?: No Referrals: Brayan Ni DO [Primary Care Provider] - 1-2 days
[2023-11-14 17:15] LABS: ALT 38 U/L (4-34); AST 43 U/L (14-36); African American GFR (CKD) 39 (>60 ml/min/1.73 sqM); Albumin 3.8 g/dL (3.5-5.0); Alkaline Phosphatase 94 U/L (38-126); Amylase 44 U/L (30-110); Anion Gap 6 mmol/L; Blood Urea Nitrogen 29 mg/dL (7-17); Carbon Dioxide 22 mmol/L (22-30); Chloride 109 mmol/L (98-107); Glucose 86 mg/dL (74-99); Lipase 186 U/L (23-300); Non-African American GFR(CKD) 34 (>60 ml/min/1.73 sqM); Potassium 4.9 mmol/L (3.5-5.1); Sodium 137 mmol/L (137-145); Total Bilirubin 0.8 mg/dL (0.2-1.3); Total Protein 6.4 g/dL (6.3-8.2)
[2023-11-14 17:26] LABS: Appearance,Urine Clear (Clear); Bilirubin,Urine Negative (Negative); Blood,Urine Small (Negative); Color,Urine Light Yellow; Glucose,Urine (UA) Negative (Negative); Ketones,Urine Negative (Negative); Leukocyte Esterase,Urine Small (Negative); Mucus,Urine Rare /hpf; Nitrite,Urine Negative (Negative); Protein,Urine Trace (Negative); RBC,Urine 2 /hpf (0-5); Specific Gravity,Urine 1.021 (1.001-1.035); Squamous Epithelial Cell,Urine 5 /hpf (0-4); Urobilinogen,Urine <2.0 mg/dL (<2.0); WBC,Urine 2 /hpf (0-5)
[2023-11-14] MEDS: ONDANSETRON 4 MG ODT STARTER PACK 2 TAB BTL PO STA (18:51)
[2023-11-14 18:56] VITALS: BP 141/72; PULSE 88; RESP 16
== END 2023-11-14 18:57 | disposition home or self-care (01) ==
LOC: EC 15:37
DX: K52.9 Noninfective gastroenteritis and colitis, unspecified (principal); R74.01 Elevation of levels of liver transaminase levels; Z88.2 Allergy status to sulfonamides; Z91.041 Radiographic dye allergy status; Z86.16 Personal history of COVID-19
CPT/HCPCS: 36415; 80053; 82150; 83690; 85025; 81001; 87636; 99284; 96374; 96375; 96361; J2405; S0119; J1170

== ENCOUNTER → 2024-01-06 | Outpatient (CLI) | payer BC ==
[2024-01-07 02:10] LABS: HGB 9.7 g/dL (12.0-15.0); MCH 29.9 pg (27.0-32.0); MCHC 30.3 g/dL (32.0-37.0); MCV 98.8 FL (80.0-97.0); Mean Platelet Volume 11.2 FL (9.5-12.2); NRBC Per 100 WBC 0 X 10*3/uL (0.00-0.01); Platelet Count 237 X 10*3/uL (140-440); RBC 3.24 X 10*6/uL (4.10-5.20); RDW 14.4 % (11.5-14.5); WBC 11.26 X 10*3/uL (4.50-10.00)
[2024-01-07 03:03] LABS: % Iron Saturation 13.52 (12.00-45.00); ALT 12 U/L (8-44); AST 24 U/L (13-35); Albumin/Globulin Ratio 1.82 Ratio (1.60-3.17); Alkaline Phosphatase 81 U/L (41-126); BUN/Creat Ratio 16.28 Ratio (12.00-20.00); Blood Urea Nitrogen 47.2 mg/dL (9.0-27.0); Calcium 8.9 mg/dL (8.7-10.3); Carbon Dioxide 18.5 mmol/L (21.6-31.8); Chloride 106 mmol/L (96-109); Globulin 2.2 g/dL (1.6-3.3); Glucose 88 mg/dL (70-110); Iron 33 UG/DL (50-170); Potassium 5.2 mmol/L (3.5-5.5); Sodium 138 mmol/L (135-145); Total Bilirubin <0.2 mg/dL (0.3-1.2); Total Iron Binding Capacity 244 UG/DL (228-460); Total Protein 6.2 g/dL (6.2-8.2); Uric Acid 8.5 mg/dL (2.9-7.7)
== END | disposition home or self-care (01) ==
LOC: LABWHC1 15:08
PROVIDERS: ATTEND Nurse Practitioner Family
DX: N18.4 Chronic kidney disease, stage 4 (severe)
CPT/HCPCS: 36415; 80053; 82043; 82306; 82570; 82728; 83540; 83550; 83735; 83970; 84100; 84550; 85027

== ENCOUNTER 2024-01-14 11:41 | Emergency (ER) | payer BC ==
[2024-01-14 11:47] VITALS: TEMP 97.7
[2024-01-14 12:15] LABS: Appearance,Urine Clear (Clear); Bacteria,Urine Rare /hpf; Bilirubin,Urine Negative (Negative); Blood,Urine Negative (Negative); Color,Urine Yellow; Glucose,Urine (UA) Negative (Negative); Ketones,Urine Negative (Negative); Leukocyte Esterase,Urine Trace (Negative); Mucus,Urine Rare /hpf; Nitrite,Urine Negative (Negative); PH, Urine 5.5 (5.0-8.0); Protein,Urine Negative (Negative); RBC,Urine 1 /hpf (0-5); Specific Gravity,Urine 1.018 (1.001-1.035); Squamous Epithelial Cell,Urine 1 /hpf (0-4); Urobilinogen,Urine <2.0 mg/dL (<2.0); WBC,Urine 1 /hpf (0-5)
[2024-01-14] MEDS: SODIUM CHLORIDE 0.9% 1,000 ML IV SCH (13:10)
[2024-01-14] MEDS: SODIUM CHLORIDE 0.9% 500 ML 500 ML IV ONE (13:10)
[2024-01-14 13:32] LABS: Basophils % (A) 0 %; Eosinophils # (A) 0.1 k/uL (0-0.7); Eosinophils % (A) 1 %; HCT 31.3 % (34.0-46.0); HGB 10.2 gm/dL (11.4-16.0); Hypochromasia Slight; Lymphocytes # (A) 1.2 k/uL (1.0-4.8); Lymphocytes % (A) 14 %; MCH 30.5 pg (25.0-35.0); MCHC 32.6 g/dL (31.0-37.0); MCV 93.5 fL (80.0-100.0); Mean Platelet Volume 7.7; Monocytes # (A) 0.3 k/uL (0-1.0); Monocytes % (A) 3 %; Neutrophils # (A) 6.5 k/uL (1.3-7.7); Neutrophils % (A) 80 %; Platelet Count 235 k/uL (150-450); RBC 3.35 m/uL (3.80-5.40); RDW 13.8 % (11.5-15.5); WBC 8.1 k/uL (3.8-10.6)
--- NOTE | 2024-01-14 13:36 | ED ---
Recheck HPI - General Chief Complaint: Recheck/Abnormal Lab/Rx Stated Complaint: kidney issues Time Seen by Provider: 01/14/24 12:04 Source: patient, RN notes reviewed Mode of arrival: ambulatory Limitations: no limitations - History of Present Illness Initial Comments: 63-year-old female presents emergency department from nephrology office for evaluation of acute renal failure. Patient states that her kidney function has worsened in which she was sent for admission. Nephrology to request ultrasound, hydration. Patient states that she has been on multiple antibiotics recently for UTI including Macrobid and ciprofloxacin. Patient states she is followed closely by Dr. Harper. She does complain of mild urinary frequency she had lower abdominal pressure which resolved. - Related Data Home Medications Medication Instructions Recorded Confirmed predniSONE 5 mg PO DAILY 06/28/16 10/18/23 lisinopriL [Zestril] 10 mg PO DAILY 07/01/19 10/18/23 Gabapentin 300 mg PO HS 09/24/21 10/18/23 Pramipexole Di-HCl [Mirapex] 0.25 mg PO HS 09/24/21 10/18/23 Zolpidem [Ambien] 10 mg PO HS 09/24/21 10/18/23 tiZANidine HCL 4 mg PO HS 10/25/22 10/18/23 mycophenolate mofetiL [Cellcept] 500 mg PO BID 05/10/23 10/18/23 Sodium Bicarbonate Tab 650 mg PO DIRECTED 08/19/23 10/18/23 Previous Rx's Medication Instructions Recorded Acetaminophen Tab [Tylenol Tab] 1,000 mg PO Q6HR PRN #30 tablet 10/26/22 Metoclopramide [Reglan] 10 mg PO TID PRN #15 tab 11/14/23 Allergies Allergy/AdvReac Type Severity Reaction Status Date / Time Iodinated Contrast Media Allergy Anaphylaxis Verified 01/14/24 11:47 [Iodinated Contrast Media - Oral and] Sulfa (Sulfonamide AdvReac Nausea & Verified 01/14/24 11:47 Antibiotics) Vomiting Review of Systems ROS Statement: Those systems with pertinent positive or pertinent negative responses have been documented in the HPI. ROS Other: All systems not noted in ROS Statement are negative. Past Medical History Past Medical History: Hypertension, Renal Disease Additional Past Medical History / Comment(s): FREQ UTI'S. SJORGREN'S. HAS BEEN HAVING IBS SYMPTOMS SINCE APR 2016. covid vaccinated and had booster 04/02 History of Any Multi-Drug Resistant Organisms: None Reported Past Surgical History: Appendectomy, Bladder Surgery, Hysterectomy, Orthopedic Surgery, Tonsillectomy Additional Past Surgical History / Comment(s): THYROIDECTOMY-PARTIAL. RT FOOT SX. CORTISONE INJECTION LT KNEE Past Anesthesia/Blood Transfusion Reactions: Postoperative Nausea & Vomiting (PONV) Additional Past Anesthesia/Blood Transfusion Reaction / Comment(s): ISSUES WITH URINATING AFTER SURGERY Past Psychological History: Anxiety Smoking Status: Never smoker Past Alcohol Use History: None Reported Past Drug Use History: None Reported - Past Family History Father Family Medical History: Cancer Brother(s) Family Medical History: Cancer Daughter(s) Family Medical History: Cancer Additional Family Medical History / Comment(s): THYROID CANCER General Exam Limitations: no limitations General appearance: alert, in no apparent distress Head exam: Present: atraumatic, normocephalic, normal inspection Eye exam: Present: normal appearance, PERRL, EOMI. Absent: scleral icterus, conjunctival injection, periorbital swelling ENT exam: Present: normal exam, mucous membranes moist Neck exam: Present: normal inspection, full ROM. Absent: tenderness, meningismus, lymphadenopathy Respiratory exam: Present: normal lung sounds bilaterally. Absent: respiratory distress, wheezes, rales, rhonchi, stridor Cardiovascular Exam: Present: regular rate, normal rhythm, normal heart sounds. Absent: systolic murmur, diastolic murmur, rubs, gallop, clicks GI/Abdominal exam: Present: soft, normal bowel sounds. Absent: distended, tenderness, guarding, rebound, rigid Back exam: Absent: CVA tenderness (R), CVA tenderness (L) Course Vital Signs 01/14/24 01/14/24 01/14/24 11:44 14:12 14:54 Temperature 97.7 F Pulse Rate 62 72 65 Respiratory 20 18 18 Rate Blood Pressure 195/79 196/69 177/76 O2 Sat by Pulse 99 98 96 Oximetry Medical Decision Making - Medical Decision Making Was pt. sent in by a medical professional or institution (, PA, ETL APPLICATION DEVELOPER, urgent care, hospital, or fpc...) When possible be specific @ -Nephrology Did you speak to anyone other than the patient for history (EMS, parent, family, police, friend...)? What history was obtained from this source @ -No Did you review nursing and triage notes (agree or disagree)? Why? @ -I reviewed and agree with nursing and triage notes Were old charts reviewed (outside hosp., previous admission, EMS record, old EKG, old radiological studies, urgent care reports/EKG's, fpc records)? Report findings @ -No old charts were reviewed Differential Diagnosis (chest pain, altered mental status, abdominal pain women, abdominal pain men, vaginal bleeding, weakness, fever, dyspnea, syncope, headache, dizziness, GI bleed, back pain, seizure, CVA, palpatations, mental health, musculoskeletal)? @ -Renal failure, dehydration, UTI, weakness, hyponatremia, EKG interpreted by me (3pts min.). @ -None X-rays interpreted by me (1pt min.). @ -None done CT interpreted by me (1pt min.). @ -None done U/S interpreted by me (1pt. min.). @ -Ultrasound kidney/bladder showing chronic changes of the kidney no masses What testing was considered but not performed or refused? (CT, X-rays, U/S, labs)? Why? @ -None What meds were considered but not given or refused? Why? @ -None Did you discuss the management of the patient with other professionals (professionals i.e. , PA, ETL APPLICATION DEVELOPER, lab, RT, psych nurse, case management social worker, powerhouse helper, teacher, environmental protection officer, case mgr)? Give summary @ -Dr. Harper nephrology regarding laboratory findings today advised to follow-up with repeat laboratory studies Was smoking cessation discussed for >3mins.? @ -No Was critical care preformed (if so, how long)? @ -No Were there social determinants of health that impacted care today? How? (Homelessness, low income, unemployed, alcoholism, drug addiction, transportation, low edu. Level, literacy, decrease access to med. care, prison, rehab)? @ -No Was there de-escalation of care discussed even if they declined (Discuss DNR or withdrawal of care, Hospice)? DNR status @ -No What co-morbidities impacted this encounter? (DM, HTN, Smoking, COPD, CAD, Cancer, CVA, ARF, Chemo, Hep., AIDS, mental health diagnosis, sleep apnea, morbid obesity)? @ -Chronic renal failure Was patient admitted / discharged? Hospital course, mention meds given and route, prescriptions, significant lab abnormalities, going to OR and other pertinent info. @ -Discharge patient laboratory studies improved today. Patient has no other acute findings patient had recent change of medication for her blood pressure. Patient will be started on hydralazine by nephrology patient will repeat laboratory studies return parameters miriam. Undiagnosed new problem with uncertain prognosis? @ -No Drug Therapy requiring intensive monitoring for toxicity (Heparin, Nitro, Insulin, Cardizem)? @ -No Were any procedures done? @ -No Diagnosis/symptom? @ -Anemia, chronic renal failure Acute, or Chronic, or Acute on Chronic? @ -Acute on chronic Uncomplicated (without systemic symptoms) or Complicated (systemic symptoms)? @ -Complicated Side effects of treatment? @ -No Exacerbation, Progression, or Severe Exacerbation? @ -No Poses a threat to life or bodily function? How? (Chest pain, [place], [place], pneumonia, PE, COPD, DKA, ARF, appy, cholecystitis, CVA, Diverticulitis, Homicidal, Suicidal, threat to staff... and all critical care pts) @ -No - Lab Data Result diagrams: 01/14/24 13:01 01/14/24 13:01 Lab Results 01/14/24 01/14/24 01/14/24 Range/Units 11:55 13:01 13:01 WBC 8.1 (3.8-10.6) k/uL RBC 3.35 L (3.80-5.40) m/uL Hgb 10.2 L (11.4-16.0) gm/dL Hct 31.3 L (34.0-46.0) % MCV 93.5 (80.0-100.0) fL MCH 30.5 (25.0-35.0) pg MCHC 32.6 (31.0-37.0) g/dL RDW 13.8 (11.5-15.5) % Plt Count 235 (150-450) k/uL MPV 7.7 Neutrophils % 80 % Lymphocytes % 14 % Monocytes % 3 % Eosinophils % 1 % Basophils % 0 % Neutrophils # 6.5 (1.3-7.7) k/uL Lymphocytes # 1.2 (1.0-4.8) k/uL Monocytes # 0.3 (0-1.0) k/uL Eosinophils # 0.1 (0-0.7) k/uL Basophils # 0.0 (0-0.2) k/uL Hypochromasia Slight Sodium 138 (137-145) mmol/L Potassium 4.9 (3.5-5.1) mmol/L Chloride 110 H (98-107) mmol/L Carbon Dioxide 24 (22-30) mmol/L Anion Gap 4 mmol/L BUN 34 H (7-17) mg/dL Creatinine 1.70 H (0.52-1.04) mg/dL Est GFR (CKD-EPI)AfAm 36 (>60 ml/min/1.73 sqM) Est GFR (CKD-EPI)NonAf 32 (>60 ml/min/1.73 sqM) Glucose 96 (74-99) mg/dL Calcium 8.9 (8.4-10.2) mg/dL Phosphorus 3.5 (2.5-4.5) mg/dL Magnesium 1.8 (1.6-2.3) mg/dL Total Bilirubin 0.4 (0.2-1.3) mg/dL AST 39 H (14-36) U/L ALT 16 (4-34) U/L Alkaline Phosphatase 71 (38-126) U/L Total Protein 6.2 L (6.3-8.2) g/dL Albumin 3.6 (3.5-5.0) g/dL Urine Color Yellow Urine Appearance Clear (Clear) Urine pH 5.5 (5.0-8.0) Ur Specific [place] 1.018 (1.001-1.035) Urine Protein Negative (Negative) Urine Glucose (UA) Negative (Negative) Urine Ketones Negative (Negative) Urine Blood Negative (Negative) Urine Nitrite Negative (Negative) Urine Bilirubin Negative (Negative) Urine Urobilinogen <2.0 (<2.0) mg/dL Ur Leukocyte Esterase Trace H (Negative) Urine RBC 1 (0-5) /hpf Urine WBC 1 (0-5) /hpf Ur Squamous Epith Cells 1 (0-4) /hpf Urine Bacteria Rare H (None) /hpf Urine Mucus Rare H (None) /hpf Disposition Clinical Impression: Chronic renal disease, Anemia Disposition: HOME SELF-CARE Condition: Stable Instructions (If sedation given, give patient instructions): Chronic Kidney Disease (ED) Additional Instructions: Please return to the Emergency Department if symptoms worsen or any other concerns. Is patient prescribed a controlled substance at d/c from ED?: No Referrals: Brayan Ni DO [Primary Care Provider] - 1-2 days Time of Disposition: 15:23
[2024-01-14 13:42] LABS: ALT 16 U/L (4-34); AST 39 U/L (14-36); African American GFR (CKD) 36 (>60 ml/min/1.73 sqM); Albumin 3.6 g/dL (3.5-5.0); Alkaline Phosphatase 71 U/L (38-126); Anion Gap 4 mmol/L; Blood Urea Nitrogen 34 mg/dL (7-17); Calcium 8.9 mg/dL (8.4-10.2); Carbon Dioxide 24 mmol/L (22-30); Chloride 110 mmol/L (98-107); Glucose 96 mg/dL (74-99); Magnesium 1.8 mg/dL (1.6-2.3); Non-African American GFR(CKD) 32 (>60 ml/min/1.73 sqM); Phosphorus 3.5 mg/dL (2.5-4.5); Potassium 4.9 mmol/L (3.5-5.1); Sodium 138 mmol/L (137-145); Total Bilirubin 0.4 mg/dL (0.2-1.3); Total Protein 6.2 g/dL (6.3-8.2)
[2024-01-14 14:13] VITALS: RESP 18
--- NOTE | 2024-01-14 14:41 | US ---
EXAMINATION TYPE: US kidneys/renal and bladder DATE OF EXAM: 01/14/2024 COMPARISON: 05/30/2022 CLINICAL INDICATION: Female, 63 years old with history of renal failure; Hx recurring UTIs; Urinary f requency; HTN EXAM MEASUREMENTS: Right Kidney: 9.3 x 4.0 x 4.8 cm Left Kidney: 11.6 x 4.4 x 4.0 cm Post Void Residual Volume: NA mL Right Kidney: Calcific and atrophic with prominent renal pelvis increased echotexture to the kidney s. Left Kidney: Calcific and atrophic with prominent renal pelvis increased echotexture to the kidneys . Bladder: WNL Bilateral Jets seen: No Normal Post Void Residual: NA There is no evidence for hydronephrosis at this point in time. No nephrolithiasis is seen. No leonides s are identified. The urinary bladder is anechoic. IMPRESSION: 1. Medical renal disease with increased echotexture to the kidneys. 2. No evidence for obstructive uropathy or mass.
[2024-01-14 15:42] VITALS: BP 111/101; PULSE 78
== END 2024-01-14 15:40 | disposition home or self-care (01) ==
LOC: EC 11:41
DX: D64.9 Anemia, unspecified (principal); N18.9 Chronic kidney disease, unspecified; Z86.16 Personal history of COVID-19; Z88.1 Allergy status to other antibiotic agents; Z88.2 Allergy status to sulfonamides; Z91.041 Radiographic dye allergy status
CPT/HCPCS: 36415; 76770; 80053; 81001; 83735; 84100; 85025; 96360; 96361; 99283

== ENCOUNTER 2024-01-20 11:13 | Emergency (ER) | payer BC ==
[2024-01-20 11:25] VITALS: RESP 18; TEMP 97.7
--- NOTE | 2024-01-20 12:36 | ED ---
General Adult HPI - General Chief complaint: Recheck/Abnormal Lab/Rx Stated complaint: Hypertension Time Seen by Provider: 01/20/24 12:01 Source: patient, RN notes reviewed Mode of arrival: ambulatory Limitations: no limitations - History of Present Illness Initial comments: Patient is a 63-year-old female presenting to the emergency department with bharat marinelli with high blood pressure. Patient was on SHAWNA inhibitor's that was recently discontinued secondary to worsening renal function. Patient started on hydralazine. Patient has side effect of headaches associated with hydralazine. In addition patient feels that is not controlling her blood pressure as well. Blood pressures have been as high as 180 over upper 80s at home. - Related Data Home Medications Medication Instructions Recorded Confirmed predniSONE 5 mg PO DAILY 06/28/16 01/20/24 Gabapentin 300 mg PO HS 09/24/21 01/20/24 Pramipexole Di-HCl [Mirapex] 0.25 mg PO HS 09/24/21 01/20/24 Zolpidem [Ambien] 10 mg PO HS 09/24/21 01/20/24 tiZANidine HCL 4 mg PO HS 10/25/22 01/20/24 Sodium Bicarbonate Tab 650 mg PO BID 08/19/23 01/20/24 hydrALAZINE HCL 50 mg PO BID 01/15/24 01/20/24 Famotidine [Pepcid] 20 mg PO DAILY 01/20/24 01/20/24 calcitrioL [Rocaltrol] 0.25 mcg PO MO 01/20/24 01/20/24 Previous Rx's Medication Instructions Recorded amLODIPine [Norvasc] 5 mg PO BID #60 tab 01/20/24 Allergies Allergy/AdvReac Type Severity Reaction Status Date / Time Iodinated Contrast Media Allergy Anaphylaxis Verified 01/20/24 14:13 [Iodinated Contrast Media - Oral and] Sulfa (Sulfonamide AdvReac Nausea & Verified 01/20/24 14:13 Antibiotics) Vomiting Review of Systems ROS Statement: Those systems with pertinent positive or pertinent negative responses have been documented in the HPI. ROS Other: All systems not noted in ROS Statement are negative. Constitutional: Denies: fever Eyes: Denies: eye pain ENT: Denies: ear pain Respiratory: Denies: cough Cardiovascular: Denies: palpitations Endocrine: Denies: fatigue Gastrointestinal: Denies: abdominal pain Neurological: Reports: headache (Only when taking hydralazine) Past Medical History Past Medical History: Hypertension, Renal Disease Additional Past Medical History / Comment(s): FREQ UTI'S. SJORGREN'S. HAS BEEN HAVING IBS SYMPTOMS SINCE APR 2016. covid vaccinated and had booster 04/02 History of Any Multi-Drug Resistant Organisms: None Reported Past Surgical History: Appendectomy, Bladder Surgery, Hysterectomy, Orthopedic Surgery, Tonsillectomy Additional Past Surgical History / Comment(s): THYROIDECTOMY-PARTIAL. RT FOOT SX. CORTISONE INJECTION LT KNEE Past Anesthesia/Blood Transfusion Reactions: Postoperative Nausea & Vomiting (PONV) Additional Past Anesthesia/Blood Transfusion Reaction / Comment(s): ISSUES WITH URINATING AFTER SURGERY Past Psychological History: Anxiety Smoking Status: Never smoker - Past Family History Father Family Medical History: Cancer Brother(s) Family Medical History: Cancer Daughter(s) Family Medical History: Cancer Additional Family Medical History / Comment(s): THYROID CANCER General Exam Limitations: no limitations General appearance: alert, in no apparent distress Head exam: Present: atraumatic, normocephalic Eye exam: Present: normal appearance, PERRL, EOMI. Absent: nystagmus ENT exam: Present: normal oropharynx Neck exam: Present: normal inspection Respiratory exam: Present: normal lung sounds bilaterally Cardiovascular Exam: Present: regular rate, normal rhythm GI/Abdominal exam: Present: soft. Absent: tenderness Extremities exam: Present: normal inspection Neurological exam: Present: alert, CN II-XII intact. Absent: motor sensory deficit Expanded Neurological exam: Present: protecting the airway Speech: Present: fluid speech Cranial nerves: EOM's Intact: Normal Motor strength exam: RUE: 5, LUE: 5, RLE: 5, LLE: 5 Eye Response: (4) open spontaneously Motor Response: (6) obeys commands Verbal Response: (5) oriented Psychiatric exam: Present: normal affect, normal mood Skin exam: Present: normal color Course Vital Signs 01/20/24 01/20/24 11:21 12:18 Temperature 97.7 F Pulse Rate 77 79 Respiratory 18 18 Rate Blood Pressure 160/79 165/96 O2 Sat by Pulse 98 99 Oximetry Medical Decision Making - Medical Decision Making Was pt. sent in by a medical professional or institution (, PA, PRIEST, urgent care, hospital, or [facility]...) When possible be specific @ -Patient was sent over by nephrology office Did you speak to anyone other than the patient for history (EMS, parent, family, police, friend...)? What history was obtained from this source @ -No Did you review nursing and triage notes (agree or disagree)? Why? @ -I reviewed and agree with nursing and triage notes Were old charts reviewed (outside hosp., previous admission, EMS record, old EKG, old radiological studies, urgent care reports/EKG's, [facility] records)? Report findings @ -Previous labs including renal function reviewed Differential Diagnosis (chest pain, altered mental status, abdominal pain women, abdominal pain men, vaginal bleeding, weakness, fever, dyspnea, syncope, headache, dizziness, GI bleed, back pain, seizure, CVA, palpatations, mental health, musculoskeletal)? @ -Differential Weakness: Hypoglycemia, shock, sepsis, hyponatremia, anemia, infection, [place], ETOH, adverse medicine reaction, overdose, stroke, this is not meant to be an all-inclusive list. EKG interpreted by me (3pts min.). @ -As above X-rays interpreted by me (1pt min.). @ -None done CT interpreted by me (1pt min.). @ -None done U/S interpreted by me (1pt. min.). @ -None done What testing was considered but not performed or refused? (CT, X-rays, U/S, labs)? Why? @ -Considered CT scan of the brain however patient has symptoms only associated with taking of her new medication. Symptoms also improved with acetaminophen. In addition conversation was had with patient regarding this and she does not want CT scan of the brain. What meds were considered but not given or refused? Why? @ -None Did you discuss the management of the patient with other professionals (professionals i.e. , BARTOLOME, PRIEST, lab, RT, psych nurse, social security specialist, hairspring setter, teacher, recruitment officer, catalytic case operator)? Give summary @ -Case was discussed with nephrology, Dr. Espinoza who recommends Norvasc 5 mg twice daily and follow-up Was smoking cessation discussed for >3mins.? @ -No Was critical care preformed (if so, how long)? @ -No Were there social determinants of health that impacted care today? How? (Homelessness, low income, unemployed, alcoholism, drug addiction, transportation, low edu. Level, literacy, decrease access to med. care, residential, rehab)? @ -No Was there de-escalation of care discussed even if they declined (Discuss DNR or withdrawal of care, Hospice)? DNR status @ -No What co-morbidities impacted this encounter? (DM, HTN, Smoking, COPD, CAD, Cancer, CVA, ARF, Chemo, Hep., AIDS, mental health diagnosis, sleep apnea, morbid obesity)? @ -History of renal disease Was patient admitted / discharged? Hospital course, mention meds given and rout e, prescriptions, significant lab abnormalities, going to OR and other pertinent info. @ -Patient presents with borderline hypertension as an outpatient with adverse reaction to hydralazine. Renal function is stable. Patient be discharged with new medication as recommended by nephrology Undiagnosed new problem with uncertain prognosis? @ -No Drug Therapy requiring intensive monitoring for toxicity (Heparin, Nitro, Insulin, Cardizem)? @ -No Were any procedures done? @ -No Diagnosis/symptom? @ -Cephalgia, hypertension Acute, or Chronic, or Acute on Chronic? @ -Acute, acute on chronic Uncomplicated (without systemic symptoms) or Complicated (systemic symptoms)? @ -Default Side effects of treatment? @ -No Exacerbation, Progression, or Severe Exacerbation? @ -No Poses a threat to life or bodily function? How? (Chest pain, [place], [place], pneumonia, PE, COPD, DKA, ARF, appy, cholecystitis, CVA, Diverticulitis, Homicidal, Suicidal, threat to staff... and all critical care pts) @ -No - Lab Data Result diagrams: 01/20/24 12:53 01/20/24 12:53 Lab Results 01/20/24 01/20/24 Range/Units 12:53 12:53 WBC 9.3 (3.8-10.6) k/uL RBC 3.39 L (3.80-5.40) m/uL Hgb 10.2 L (11.4-16.0) gm/dL Hct 32.0 L (34.0-46.0) % MCV 94.2 (80.0-100.0) fL MCH 30.0 (25.0-35.0) pg MCHC 31.9 (31.0-37.0) g/dL RDW 14.4 (11.5-15.5) % Plt Count 255 (150-450) k/uL MPV 7.4 Neutrophils % 82 % Lymphocytes % 13 % Monocytes % 3 % Eosinophils % 1 % Basophils % 0 % Neutrophils # 7.7 (1.3-7.7) k/uL Lymphocytes # 1.2 (1.0-4.8) k/uL Monocytes # 0.3 (0-1.0) k/uL Eosinophils # 0.1 (0-0.7) k/uL Basophils # 0.0 (0-0.2) k/uL Hypochromasia Slight Sodium 134 L (137-145) mmol/L Potassium 5.1 (3.5-5.1) mmol/L Chloride 105 (98-107) mmol/L Carbon Dioxide 26 (22-30) mmol/L Anion Gap 3 mmol/L BUN 32 H (7-17) mg/dL Creatinine 1.78 H (0.52-1.04) mg/dL Est GFR (CKD-EPI)AfAm 34 (>60 ml/min/1.73 sqM) Est GFR (CKD-EPI)NonAf 30 (>60 ml/min/1.73 sqM) Glucose 97 (74-99) mg/dL Calcium 9.2 (8.4-10.2) mg/dL Phosphorus 3.5 (2.5-4.5) mg/dL Magnesium 1.8 (1.6-2.3) mg/dL Total Bilirubin 0.5 (0.2-1.3) mg/dL AST 31 (14-36) U/L ALT 19 (4-34) U/L Alkaline Phosphatase 69 (38-126) U/L Total Protein 6.4 (6.3-8.2) g/dL Albumin 3.8 (3.5-5.0) g/dL Disposition Clinical Impression: Hypertension, Headache Disposition: HOME SELF-CARE Condition: Stable Instructions (If sedation given, give patient instructions): Hypertension (ED), General Headache (ED) Additional Instructions: Prescription sent to pharmacy. Please do follow-up with primary care physician and your data analytics analyst in the next couple of days for recheck. Hold second dose of Norvasc if blood pressure is less than 120. Return for increased headache, weakness, confusion, vomiting, uncontrolled blood pressure, worsening symptoms or any other concerns. Prescriptions: amLODIPine [Norvasc] 5 mg PO BID #60 tab Is patient prescribed a controlled substance at d/c from ED?: No Referrals: Brayan Ni DO [Primary Care Provider] - 1-2 days Galen Harper DO [STAFF PHYSICIAN] - 1-2 days Time of Disposition: 14:23
[2024-01-20] MEDS: ACETAMINOPHEN TAB 500 MG TAB PO STA (12:51)
[2024-01-20 13:03] LABS: Basophils % (A) 0 %; Eosinophils # (A) 0.1 k/uL (0-0.7); Eosinophils % (A) 1 %; HGB 10.2 gm/dL (11.4-16.0); Hypochromasia Slight; Lymphocytes # (A) 1.2 k/uL (1.0-4.8); Lymphocytes % (A) 13 %; MCHC 31.9 g/dL (31.0-37.0); MCV 94.2 fL (80.0-100.0); Mean Platelet Volume 7.4; Monocytes # (A) 0.3 k/uL (0-1.0); Monocytes % (A) 3 %; Neutrophils # (A) 7.7 k/uL (1.3-7.7); Neutrophils % (A) 82 %; Platelet Count 255 k/uL (150-450); RBC 3.39 m/uL (3.80-5.40); RDW 14.4 % (11.5-15.5); WBC 9.3 k/uL (3.8-10.6)
[2024-01-20 13:16] LABS: ALT 19 U/L (4-34); AST 31 U/L (14-36); African American GFR (CKD) 34 (>60 ml/min/1.73 sqM); Albumin 3.8 g/dL (3.5-5.0); Alkaline Phosphatase 69 U/L (38-126); Anion Gap 3 mmol/L; Blood Urea Nitrogen 32 mg/dL (7-17); Calcium 9.2 mg/dL (8.4-10.2); Carbon Dioxide 26 mmol/L (22-30); Chloride 105 mmol/L (98-107); Glucose 97 mg/dL (74-99); Magnesium 1.8 mg/dL (1.6-2.3); Non-African American GFR(CKD) 30 (>60 ml/min/1.73 sqM); Phosphorus 3.5 mg/dL (2.5-4.5); Potassium 5.1 mmol/L (3.5-5.1); Sodium 134 mmol/L (137-145); Total Bilirubin 0.5 mg/dL (0.2-1.3); Total Protein 6.4 g/dL (6.3-8.2)
[2024-01-20] MEDS: amLODIPine 5 MG TAB PO STA (14:31)
[2024-01-20 14:35] VITALS: BP 156/83; PULSE 63
== END 2024-01-20 14:35 | disposition home or self-care (01) ==
LOC: EC 11:13
DX: I10 Essential (primary) hypertension (principal); R51.9 Headache, unspecified; Z91.041 Radiographic dye allergy status; Z88.1 Allergy status to other antibiotic agents; Z88.2 Allergy status to sulfonamides; Z87.440 Personal history of urinary (tract) infections; Z86.16 Personal history of COVID-19; Z90.49 Acquired absence of other specified parts of digestive tract
CPT/HCPCS: 36415; 80053; 83735; 84100; 85025; 99284

== ENCOUNTER 2024-02-02 11:57 | Emergency (ER) | payer BC ==
[2024-02-02 12:11] VITALS: RESP 18; TEMP 98.7
[2024-02-02] MEDS: KETOROLAC 15 MG/ML 1 ML VIAL IVP STA (12:40)
--- NOTE | 2024-02-02 12:49 | ED ---
Female Urogenital HPI - General Chief complaint: Urogenital Stated complaint: Urogenital Time Seen by Provider: 02/02/24 12:13 Source: patient, RN notes reviewed Mode of arrival: ambulatory Limitations: no limitations - History of Present Illness Initial comments: 63 year old female arrives to ED with chief complaint of dysuria and right flank pain. She was recently seen in the ED for similar complaints and followed up with Dr. Phillip's office where cultures were obtained. She states that their office called her Saturday to inform her that her cultures were negative. Significant to her presenting complaint is her past history of renal failure for which she was recently told that her kidney function is declining in addition to recently taking antibiotics for UTI. She reports dysuria, decreased urine output diffuse abdominal pain; however, she denies fever, malaise, shortness of breath, and hematuria. - Related Data Home Medications Medication Instructions Recorded Confirmed predniSONE 5 mg PO DAILY 06/28/16 01/31/24 Gabapentin 300 mg PO HS 09/24/21 01/31/24 Pramipexole Di-HCl [Mirapex] 0.25 mg PO HS 09/24/21 01/31/24 Zolpidem [Ambien] 10 mg PO HS 09/24/21 01/31/24 tiZANidine HCL 4 mg PO HS 10/25/22 01/31/24 Sodium Bicarbonate Tab 650 mg PO BID 08/19/23 01/31/24 Famotidine [Pepcid] 20 mg PO DAILY 01/20/24 01/31/24 calcitrioL [Rocaltrol] 0.25 mcg PO MO 01/20/24 01/31/24 Previous Rx's Medication Instructions Recorded amLODIPine [Norvasc] 5 mg PO BID #60 tab 01/20/24 Cephalexin [Keflex] 500 mg PO Q8HR #21 cap 02/02/24 Allergies Allergy/AdvReac Type Severity Reaction Status Date / Time Iodinated Contrast Media Allergy Anaphylaxis Verified 01/31/24 13:28 [Iodinated Contrast Media - Oral and] Sulfa (Sulfonamide AdvReac Nausea & Verified 01/31/24 13:28 Antibiotics) Vomiting Review of Systems ROS Statement: Those systems with pertinent positive or pertinent negative responses have been documented in the HPI. ROS Other: All systems not noted in ROS Statement are negative. Past Medical History Past Medical History: Hypertension, Renal Disease Additional Past Medical History / Comment(s): FREQ UTI'S. SJORGREN'S. HAS BEEN HAVING IBS SYMPTOMS SINCE APR 2016. covid vaccinated and had booster 04/02 History of Any Multi-Drug Resistant Organisms: None Reported Past Surgical History: Appendectomy, Bladder Surgery, Hysterectomy, Orthopedic Surgery, Tonsillectomy Additional Past Surgical History / Comment(s): THYROIDECTOMY-PARTIAL. RT FOOT SX. CORTISONE INJECTION LT KNEE Past Anesthesia/Blood Transfusion Reactions: Postoperative Nausea & Vomiting (PONV) Additional Past Anesthesia/Blood Transfusion Reaction / Comment(s): ISSUES WITH URINATING AFTER SURGERY Past Psychological History: Anxiety Smoking Status: Never smoker - Past Family History Father Family Medical History: Cancer Brother(s) Family Medical History: Cancer Daughter(s) Family Medical History: Cancer Additional Family Medical History / Comment(s): THYROID CANCER General Exam Limitations: no limitations General appearance: alert, in no apparent distress Head exam: Present: atraumatic, normocephalic, normal inspection Eye exam: Present: normal appearance, PERRL, EOMI. Absent: scleral icterus, conjunctival injection, periorbital swelling ENT exam: Present: normal exam, mucous membranes moist Neck exam: Present: normal inspection. Absent: tenderness, meningismus, lymphadenopathy Respiratory exam: Present: normal lung sounds bilaterally. Absent: respiratory distress, wheezes, rales, rhonchi, stridor Cardiovascular Exam: Present: regular rate, normal rhythm, normal heart sounds. Absent: systolic murmur, diastolic murmur, rubs, gallop, clicks GI/Abdominal exam: Present: soft, normal bowel sounds. Absent: distended, tenderness, guarding, rebound, rigid Extremities exam: Present: normal inspection, full ROM, normal capillary refill. Absent: tenderness, pedal edema, joint swelling, calf tenderness Back exam: Present: normal inspection, CVA tenderness (R) Neurological exam: Present: alert, oriented X3, CN II-XII intact Psychiatric exam: Present: normal affect, normal mood Skin exam: Present: warm, dry, intact, normal color. Absent: rash Course Vital Signs 02/02/24 12:06 Temperature 98.7 F Pulse Rate 71 Respiratory 18 Rate Blood Pressure 144/76 O2 Sat by Pulse 99 Oximetry Medical Decision Making - Medical Decision Making Was pt. sent in by a medical professional or institution (BARTOLOME Varela, GUILLOTINE OPERATOR, urgent care, hospital, or penitentiary...) When possible be specific @ -No Did you speak to anyone other than the patient for history (EMS, parent, family, police, friend...)? What history was obtained from this source @ -No Did you review nursing and triage notes (agree or disagree)? Why? @ -I reviewed and agree with nursing and triage notes Were old charts reviewed (outside hosp., previous admission, EMS record, old EKG, old radiological studies, urgent care reports/EKG's, penitentiary records)? Report findings @ -No old charts were reviewed Differential Diagnosis (chest pain, altered mental status, abdominal pain women, abdominal pain men, vaginal bleeding, weakness, fever, dyspnea, syncope, headache, dizziness, GI bleed, back pain, seizure, CVA, palpatations, mental health, musculoskeletal)? @ -Differential Abdominal Pain Women: Appendicitis, Cholecystitis, diverticulosis, ischemic bowel, pancreatitis, hepatitis, UTI, gastroenteritis, AAA, incarcerated hernia, bowel obstruction, constipation, inflammatory bowel, hepatitis, peptic ulcer disease, splenic infarction, perforated viscus, vulvitis, ovarian torsion, PID, kidney stone, placenta abruption, this is not meant to be an all-inclusive list EKG interpreted by me (3pts min.). @ -None X-rays interpreted by me (1pt min.). @ -None done CT interpreted by me (1pt min.). @ -None done U/S interpreted by me (1pt. min.). @ -None done What testing was considered but not performed or refused? (CT, X-rays, U/S, labs)? Why? @ -None What meds were considered but not given or refused? Why? @ -None Did you discuss the management of the patient with other professionals (professionals i.e. BARTOLOME Varela, GUILLOTINE OPERATOR, lab, RT, psych nurse, manager social media, financial aid coordinator, teacher, fisheries technical officer, insurance case manager)? Give summary @ -No Was smoking cessation discussed for >3mins.? @ -No Was critical care preformed (if so, how long)? @ -No Were there social determinants of health that impacted care today? How? (Homele ssness, low income, unemployed, alcoholism, drug addiction, transportation, low edu. Level, literacy, decrease access to med. care, [facility], rehab)? @ -No Was there de-escalation of care discussed even if they declined (Discuss DNR or withdrawal of care, Hospice)? DNR status @ -No What co-morbidities impacted this encounter? (DM, HTN, Smoking, COPD, CAD, Cancer, CVA, ARF, Chemo, Hep., AIDS, mental health diagnosis, sleep apnea, morbid obesity)? @ -Chronic kidney disease Was patient admitted / discharged? Hospital course, mention meds given and route, prescriptions, significant lab abnormalities, going to OR and other pertinent info. @ -Discharge patient has evidence of UTI was given Rocephin kidney function is at baseline currently. Patient has chronic anemia. Patient discharged on Keflex. Follow-up urology and nephrology Undiagnosed new problem with uncertain prognosis? @ -No Drug Therapy requiring intensive monitoring for toxicity (Heparin, Nitro, Insulin, Cardizem)? @ -No Were any procedures done? @ -No Diagnosis/symptom? @ -UTI Acute, or Chronic, or Acute on Chronic? @ -Acute Uncomplicated (without systemic symptoms) or Complicated (systemic symptoms)? @ -Uncomplicated Side effects of treatment? @ -No Exacerbation, Progression, or Severe Exacerbation? @ -No Poses a threat to life or bodily function? How? (Chest pain, [place], [place], pneumonia, PE, COPD, DKA, ARF, appy, cholecystitis, CVA, Diverticulitis, Homicidal, Suicidal, threat to staff... and all critical care pts) @ -No - Lab Data Result diagrams: 02/02/24 12:37 02/02/24 12:37 Lab Results 02/02/24 02/02/24 02/02/24 Range/Units 12:37 12:37 12:37 WBC 11.7 H (3.8-10.6) k/uL RBC 3.74 L (3.80-5.40) m/uL Hgb 11.3 L (11.4-16.0) gm/dL Hct 36.2 (34.0-46.0) % MCV 96.9 (80.0-100.0) fL MCH 30.2 (25.0-35.0) pg MCHC 31.2 (31.0-37.0) g/dL RDW 14.1 (11.5-15.5) % Plt Count 287 (150-450) k/uL MPV 7.4 Neutrophils % 79 % Lymphocytes % 11 % Monocytes % 5 % Eosinophils % 4 % Basophils % 1 % Neutrophils # 9.2 H (1.3-7.7) k/uL Lymphocytes # 1.3 (1.0-4.8) k/uL Monocytes # 0.6 (0-1.0) k/uL Eosinophils # 0.5 (0-0.7) k/uL Basophils # 0.1 (0-0.2) k/uL Hypochromasia Slight Sodium 138 (137-145) mmol/L Potassium 4.1 (3.5-5.1) mmol/L Chloride 104 (98-107) mmol/L Carbon Dioxide 24 (22-30) mmol/L Anion Gap 10 mmol/L BUN 31 H (7-17) mg/dL Creatinine 1.85 H (0.52-1.04) mg/dL Est GFR (CKD-EPI)AfAm 33 (>60 ml/min/1.73 sqM) Est GFR (CKD-EPI)NonAf 28 (>60 ml/min/1.73 sqM) Glucose 101 H (74-99) mg/dL Calcium 9.0 (8.4-10.2) mg/dL Total Bilirubin 0.5 (0.2-1.3) mg/dL AST 39 H (14-36) U/L ALT 27 (4-34) U/L Alkaline Phosphatase 97 (38-126) U/L Total Protein 6.6 (6.3-8.2) g/dL Albumin 3.9 (3.5-5.0) g/dL Urine Color Yellow Urine Appearance Turbid H (Clear) Urine pH 5.5 (5.0-8.0) Ur Specific [place] 1.018 (1.001-1.035) Urine Protein 2+ H (Negative) Urine Glucose (UA) Negative (Negative) Urine Ketones Negative (Negative) Urine Blood Large H (Negative) Urine Nitrite Positive H (Negative) Urine Bilirubin Negative (Negative) Urine Urobilinogen <2.0 (<2.0) mg/dL Ur Leukocyte Esterase Large H (Negative) Urine RBC >182 H (0-5) /hpf Urine WBC >182 H (0-5) /hpf Urine WBC Clumps Moderate H (None) /hpf Ur Squamous Epith Cells 6 H (0-4) /hpf Urine Bacteria Many H (None) /hpf Urine Mucus Rare H (None) /hpf Disposition Clinical Impression: Urinary tract infection Disposition: HOME SELF-CARE Condition: Good Additional Instructions: Please return to the Emergency Department if symptoms worsen or any other concerns. Prescriptions: Cephalexin [Keflex] 500 mg PO Q8HR #21 cap Is patient prescribed a controlled substance at d/c from ED?: No Referrals: Brayan Ni DO [Primary Care Provider] - 1-2 days Wali Odonnell MD [STAFF PHYSICIAN] - 1-2 days Galen Harper DO [STAFF PHYSICIAN] - 1-2 days
[2024-02-02 12:52] LABS: Basophils # (A) 0.1 k/uL (0-0.2); Basophils % (A) 1 %; Eosinophils # (A) 0.5 k/uL (0-0.7); Eosinophils % (A) 4 %; HCT 36.2 % (34.0-46.0); HGB 11.3 gm/dL (11.4-16.0); Hypochromasia Slight; Lymphocytes # (A) 1.3 k/uL (1.0-4.8); Lymphocytes % (A) 11 %; MCH 30.2 pg (25.0-35.0); MCHC 31.2 g/dL (31.0-37.0); MCV 96.9 fL (80.0-100.0); Mean Platelet Volume 7.4; Monocytes # (A) 0.6 k/uL (0-1.0); Monocytes % (A) 5 %; Neutrophils # (A) 9.2 k/uL (1.3-7.7); Neutrophils % (A) 79 %; Platelet Count 287 k/uL (150-450); RBC 3.74 m/uL (3.80-5.40); RDW 14.1 % (11.5-15.5); WBC 11.7 k/uL (3.8-10.6)
[2024-02-02] MEDS: HYDROmorphone 0.5 MG/0.5 ML SYRINGE IVP PRN (12:52)
[2024-02-02] MEDS: ONDANSETRON 4 MG/2 ML VIAL IVP STA (12:52)
[2024-02-02 13:02] LABS: Potassium 4.1 mmol/L (3.5-5.1)
[2024-02-02 13:03] LABS: ALT 27 U/L (4-34); AST 39 U/L (14-36); African American GFR (CKD) 33 (>60 ml/min/1.73 sqM); Albumin 3.9 g/dL (3.5-5.0); Alkaline Phosphatase 97 U/L (38-126); Anion Gap 10 mmol/L; Blood Urea Nitrogen 31 mg/dL (7-17); Carbon Dioxide 24 mmol/L (22-30); Chloride 104 mmol/L (98-107); Glucose 101 mg/dL (74-99); Non-African American GFR(CKD) 28 (>60 ml/min/1.73 sqM); Sodium 138 mmol/L (137-145); Total Bilirubin 0.5 mg/dL (0.2-1.3); Total Protein 6.6 g/dL (6.3-8.2)
[2024-02-02 13:05] LABS: Appearance,Urine Turbid (Clear); Bacteria,Urine Many /hpf; Bilirubin,Urine Negative (Negative); Blood,Urine Large (Negative); Color,Urine Yellow; Glucose,Urine (UA) Negative (Negative); Ketones,Urine Negative (Negative); Leukocyte Esterase,Urine Large (Negative); Mucus,Urine Rare /hpf; Nitrite,Urine Positive (Negative); PH, Urine 5.5 (5.0-8.0); Protein,Urine 2+ (Negative); RBC,Urine >182 /hpf (0-5); Squamous Epithelial Cell,Urine 6 /hpf (0-4); Urobilinogen,Urine <2.0 mg/dL (<2.0); WBC,Urine >182 /hpf (0-5)
[2024-02-02 13:12] LABS: Specific Gravity,Urine 1.018 (1.001-1.035)
[2024-02-02] MEDS: cefTRIAXone IN SWFI 1,000 MG/10 ML SYRINGE IVP STA (13:47)
[2024-02-02 13:55] VITALS: BP 102/67; PULSE 58
== END 2024-02-02 13:55 | disposition home or self-care (01) ==
LOC: EC 11:57
DX: N39.0 Urinary tract infection, site not specified (principal)
CPT/HCPCS: 36415; 80053; 81001; 85025; 96374; 96375; 99283

== ENCOUNTER → 2024-02-05 | Outpatient (CLI) | payer BC ==
--- NOTE | 2024-02-05 13:15 | MM ---
Reason for Exam: Clinical finding. Last mammogram was performed 3 year(s) and 3 month(s) ago. Indicated Problems: Pain of the right side (Focal) for 3 Month(s) : lat. side of breast. Patient History: Menarche at age 12. First Full-Term at age 17. Left ovary removed at age 45. Hysterectomy at age 21. Postmenopausal. Benign Excisional Biopsy on the right side. Paternal grandmother had ovarian cancer at or over age 50. Risk Values: Luz 5 year model risk: 1.4%. NCI Lifetime model risk: 5.6%. Prior Study Comparison: 06/29/2013 Bilateral Screening Mammogram, [facility]. 11/08/2016 Bilateral Screening Mammogram, [facility]. 07/14/2019 Bilateral Screening Mammogram, [facility]. 11/09/2020 Bilateral Screening Mammogram, [facility]. Tissue Density: There are scattered areas of fibroglandular density. Findings: Analyzed By CAD. This is the first mammogram post breast reduction. The pattern is symmetrical. There is a benign-appearing asymmetric density in the inner middle right breast with multiple calcifications. There is focal asymmetry in the upper outer mid left breast. No suspicious underlying spiculated or lobular mass evident. No suspicious groups of microcalcifications, spiculated or lobular masses, architectural distortion or other secondary signs of malignancy are mammographically apparent. Overall Assessment: Benign, BI-RAD 2 Management: Screening Mammogram of both breasts in 1 year. A negative mammogram report should not preclude additional follow up of suspicious palpable abnormalities. Patient should continue monthly self breast exam. A clinical breast exam by your physician is recommended on an annual basis and results should be correlated with mammographic findings. Note on Luz scores and lifetime risk: 1. A Luz score greater than 3% is considered moderate risk. If this is the case, consider specialist referral to assess eligibility for a risk reducing agent. 2. If overall lifetime risk for the development of breast cancer is 20% or higher, the patient may qualify for future screening with alternating mammogram and breast MRI. [facility], , 02/05/2024 1:13 PM. Electronically signed and approved by: Josef Deleon D.O. Radiologis
== END | disposition home or self-care (01) ==
LOC: RADMAMWWP 12:30
PROVIDERS: ATTEND Family Medicine
DX: N64.4 Mastodynia
CPT/HCPCS: 77062; 77066

== ENCOUNTER → 2024-02-07 | Outpatient (CLI) | payer BC ==
[2024-02-07 15:50] LABS: ALT 38 U/L (8-44); AST 31 U/L (13-35); Albumin 4.1 g/dL (3.8-4.9); Albumin/Globulin Ratio 1.58 Ratio (1.60-3.17); Alkaline Phosphatase 100 U/L (41-126); BUN/Creat Ratio 17.11 Ratio (12.00-20.00); Blood Urea Nitrogen 32.5 mg/dL (9.0-27.0); Calcium 9.2 mg/dL (8.7-10.3); Carbon Dioxide 26.7 mmol/L (21.6-31.8); Chloride 103 mmol/L (96-109); Globulin 2.6 g/dL (1.6-3.3); Glucose 90 mg/dL (70-110); Sodium 142 mmol/L (135-145); Total Bilirubin 0.2 mg/dL (0.3-1.2); Total Protein 6.7 g/dL (6.2-8.2)
== END | disposition home or self-care (01) ==
LOC: LABWHC1 09:31
PROVIDERS: ATTEND Internal Medicine
DX: N18.4 Chronic kidney disease, stage 4 (severe) (principal)
CPT/HCPCS: 36415; 80053

== ENCOUNTER → 2024-03-20 | Outpatient (CLI) | payer BC ==
--- NOTE | 2024-03-20 09:33 | XR ---
EXAMINATION TYPE: XR orbit complete bilateral DATE OF EXAM: 03/20/2024 9:19 AM COMPARISON: None. CLINICAL INDICATION: Female, 63 years old with history of G50.1 ATYPICAL FACIAL PAIN L98.9 DISORDER O F THE S, right-sided pain for one month TECHNIQUE: XR orbit complete bilateral view(s) obtained. FINDINGS: Orbital floors are intact. Medial orbital sharp are intact. Paranasal sinuses as visualized are clear . Sella is unremarkable. Nasal bones spine are normal. Septum appears midline. IMPRESSION: 1. No suspicious acute abnormality [facility], , 03/20/2024 9:31 AM
== END | disposition home or self-care (01) ==
LOC: RADXRMAIN 08:37
PROVIDERS: ATTEND Family Medicine
DX: G50.1 Atypical facial pain (principal); L98.9 Disorder of the skin and subcutaneous tissue, unspecified
CPT/HCPCS: 70200

== ENCOUNTER → 2024-03-25 | Outpatient (CLI) | payer BC ==
[2024-03-25 15:44] LABS: HCT 36.7 % (37.2-46.3); HGB 11.6 g/dL (12.0-15.0); MCH 30.4 pg (27.0-32.0); MCHC 31.6 g/dL (32.0-37.0); MCV 96.3 FL (80.0-97.0); Mean Platelet Volume 9.9 FL (9.5-12.2); NRBC Per 100 WBC 0 X 10*3/uL (0.00-0.01); Platelet Count 231 X 10*3/uL (140-440); RBC 3.81 X 10*6/uL (4.10-5.20); WBC 12.58 X 10*3/uL (4.50-10.00)
[2024-03-25 16:03] LABS: % Iron Saturation 32.69 (12.00-45.00); BUN/Creat Ratio 17.26 Ratio (12.00-20.00); Blood Urea Nitrogen 32.8 mg/dL (9.0-27.0); Carbon Dioxide 25.3 mmol/L (21.6-31.8); Chloride 104 mmol/L (96-109); Glucose 100 mg/dL (70-110); Iron 85 UG/DL (50-170); Sodium 140 mmol/L (135-145); Total Iron Binding Capacity 260 UG/DL (228-460); Uric Acid 6.2 mg/dL (2.9-7.7)
[2024-03-25 16:04] LABS: ALT 16 U/L (8-44); AST 20 U/L (13-35); Albumin 4.1 g/dL (3.8-4.9); Albumin/Globulin Ratio 1.78 Ratio (1.60-3.17); Alkaline Phosphatase 72 U/L (41-126); Calcium 9.1 mg/dL (8.7-10.3); Globulin 2.3 g/dL (1.6-3.3); Total Bilirubin 0.3 mg/dL (0.3-1.2); Total Protein 6.4 g/dL (6.2-8.2)
[2024-03-25 16:53] LABS: Appearance,Urine Clear (Clear); Bilirubin,Urine Negative (Negative); Blood,Urine Negative (Negative); Color,Urine Yellow (Yellow); Ketones,Urine Negative (Negative); Nitrite,Urine Negative (Negative); Specific Gravity,Urine 1.016 (1.001-1.030); Urobilinogen,Urine 0.2 E.U./DL
[2024-03-25 17:02] LABS: Bacteria,Urine None Seen (None Seen)
== END | disposition home or self-care (01) ==
LOC: LABWHC1 09:14
PROVIDERS: ATTEND Internal Medicine Nephrology
DX: N18.4 Chronic kidney disease, stage 4 (severe) (principal); D64.9 Anemia, unspecified; R80.9 Proteinuria, unspecified; N39.0 Urinary tract infection, site not specified; M10.9 Gout, unspecified
CPT/HCPCS: 36415; 80053; 81001; 82728; 83540; 83550; 84550; 85027; 87086

== ENCOUNTER 2024-06-02 07:18 | Observation (INO) | payer BC ==
[2024-06-02] MEDS ORDERED: MORPHINE SULFATE/PF 10MG/10ML VL IVP PRN (08:12)
--- NOTE | 2024-06-02 08:14 | ED ---
General Adult HPI - General Chief complaint: Urogenital Stated complaint: Abd pain,Poss UTI Time Seen by Provider: 06/02/24 07:24 Source: patient Mode of arrival: ambulatory Limitations: no limitations - History of Present Illness Initial comments: Dictation was produced using [employer] dictation software. please excuse any grammatical, word or spelling errors. Chief Complaint: 63-year-old female with history of kidney disease and chronic UTIs presents to the ER for urinary symptoms History of Present Illness: Patient is a 63-year-old female she has chronic kidney disease. States that she has history of frequent UTIs has seen urology and has had 2 months of antibiotics between February and April. She has been off of antibiotics for approximately 1 month. States that over the last couple days she has had recurrence of her UTI symptoms. Patient [place] any fevers. Complains of nausea and pain. States that she does have some right-sided flank pain. The ROS documented in this emergency department record has been reviewed and confirmed by me. Those systems with pertinent positive or negative responses have been documented in the HPI. All other systems are other negative and/or noncontributory. - Related Data Home Medications Medication Instructions Recorded Confirmed predniSONE 5 mg PO DAILY 06/28/16 03/17/24 Gabapentin 300 mg PO HS 09/24/21 03/17/24 Pramipexole Di-HCl [Mirapex] 0.25 mg PO HS 09/24/21 03/17/24 Zolpidem [Ambien] 10 mg PO HS 09/24/21 03/17/24 tiZANidine HCL 4 mg PO HS 10/25/22 03/17/24 Sodium Bicarbonate Tab 650 mg PO BID 08/19/23 03/17/24 Famotidine [Pepcid] 20 mg PO DAILY 01/20/24 03/17/24 calcitrioL [Rocaltrol] 0.25 mcg PO MO 01/20/24 03/17/24 Cephalexin [Keflex] 250 mg PO DAILY 03/17/24 03/17/24 Previous Rx's Medication Instructions Recorded amLODIPine [Norvasc] 5 mg PO BID #60 tab 01/20/24 Cephalexin [Keflex] 500 mg PO Q8HR #21 cap 02/02/24 Allergies Allergy/AdvReac Type Severity Reaction Status Date / Time Iodinated Contrast Media Allergy Anaphylaxis Verified 06/02/24 07:26 [Iodinated Contrast Media - Oral and] Sulfa (Sulfonamide AdvReac Nausea & Verified 06/02/24 07:26 Antibiotics) Vomiting Review of Systems ROS Statement: Those systems with pertinent positive or pertinent negative responses have been documented in the HPI. ROS Other: All systems not noted in ROS Statement are negative. Past Medical History Past Medical History: Hypertension, Renal Disease Additional Past Medical History / Comment(s): FREQ UTI'S. SJORGREN'S. HAS BEEN HAVING IBS SYMPTOMS SINCE APR 2016. covid vaccinated and had booster 04/02 History of Any Multi-Drug Resistant Organisms: None Reported Past Surgical History: Appendectomy, Bladder Surgery, Hysterectomy, Orthopedic Surgery, Tonsillectomy Additional Past Surgical History / Comment(s): THYROIDECTOMY-PARTIAL. RT FOOT SX. CORTISONE INJECTION LT KNEE Past Anesthesia/Blood Transfusion Reactions: Postoperative Nausea & Vomiting (PONV) Additional Past Anesthesia/Blood Transfusion Reaction / Comment(s): ISSUES WITH URINATING AFTER SURGERY Past Psychological History: Anxiety Smoking Status: Never smoker Past Alcohol Use History: None Reported Past Drug Use History: None Reported - Past Family History Father Family Medical History: Cancer Brother(s) Family Medical History: Cancer Daughter(s) Family Medical History: Cancer Additional Family Medical History / Comment(s): THYROID CANCER General Exam - General Exam Comments Initial Comments: PHYSICAL EXAM: General Impression: Alert and oriented x3, not in acute distress HEENT: Normocephalic atraumatic, extra-ocular movements intact, pupils equal and reactive to light bilaterally, mucous membranes moist. Cardiovascular: Heart regular rate and rhythm Chest: Able to complete full sentences, no retractions, no tachypnea Abdomen: abdomen soft, non-tender, non-distended, no organomegaly, positive right CVA tenderness Musculoskeletal: Pulses present and equal in all extremities, no peripheral edema Motor: no focal deficits noted Neurological: CN II-XII grossly intact, no focal motor or sensory deficits noted Skin: Intact with no visualized rashes Psych: Normal affect and mood Limitations: no limitations Course Vital Signs 06/02/24 06/02/24 06/02/24 07:22 07:43 08:53 Temperature 97.4 F L 97.9 F Pulse Rate 75 57 L Respiratory 18 16 15 Rate Blood Pressure 129/79 120/78 O2 Sat by Pulse 100 98 Oximetry 06/02/24 10:26 Temperature 97.7 F Pulse Rate 60 Respiratory 16 Rate Blood Pressure 121/78 O2 Sat by Pulse 95 Oximetry Medical Decision Making - Medical Decision Making Was pt. sent in by a medical professional or institution (, PA, ANODE BUILDER, urgent care, hospital, or group home...) When possible be specific @ -No Did you speak to anyone other than the patient for history (EMS, parent, family, police, friend...)? What history was obtained from this source @ -No Did you review nursing and triage notes (agree or disagree)? Why? @ -I reviewed and agree with nursing and triage notes Were old charts reviewed (outside hosp., previous admission, EMS record, old EKG, old radiological studies, urgent care reports/EKG's, group home records)? Report findings @ -No old charts were reviewed Differential Diagnosis (chest pain, altered mental status, abdominal pain women, abdominal pain men, vaginal bleeding, musculoskeletal, weakness, fever, dyspnea, syncope, headache, dizziness, GI bleed, back pain, seizure, CVA, palpatations, mental health)? @ -Differential Back Pain: Strain, zoster, cauda equina syndrome, epidural abscess, vertebral osteomyelitis, discitis, fracture, subluxation, disc herniation, DJD, spinal stenosis, dissection, AAA, pancreatitis, peptic ulcer disease, pyelonephritis, kidney stone, this is not meant to be an all-inclusive list. EKG interpreted by me (3pts min.). @ -None done X-rays interpreted by me (1pt min.). @ -None done CT interpreted by me (1pt min.). @ -None done U/S interpreted by me (1pt. min.). @ -None done What testing was considered but not performed or refused? (CT, X-rays, U/S, labs)? Why? @ -None What meds were considered but not given or refused? Why? @ -None Was smoking cessation discussed for >3mins.? @ -No Were there social determinants of health that impacted care today? How? (Homelessness, low income, unemployed, alcoholism, drug addiction, transportation, low edu. Level, literacy, decrease access to med. care, [facility], rehab)? @ -No Was there de-escalation of care discussed even if they declined (Discuss DNR or withdrawal of care, Hospice)? DNR status @ -No What co-morbidities impacted this encounter? (DM, HTN, Smoking, COPD, CAD, Cancer, CVA, ARF, Chemo, Hep., AIDS, mental health diagnosis, sleep apnea, morbid obesity)? @ -Frequent UTIs, CKD Was patient admitted / discharged? Hospital course, mention meds given and route, prescriptions, significant lab abnormalities, going to OR and other pertinent info. @ -63-year-old female presents emergency department with UTI symptoms. Patient has frequent UTIs. She also reports flank pain. Patient has mild constitutional symptoms are not very obvious. Patient has positive tenderness to the right CVA area. Laboratory evaluation obtained. CKD which appears to be baseline. She does have nitrate positive UTIs. Clinical presentation c onsistent with pyelonephritis given antibiotics will be admitted. Case discussed with hospitalist for admission Did you discuss the management of the patient with other professionals (professionals i.e. , PA, ANODE BUILDER, lab, RT, psych nurse, social services technician, engineer first assistant, teacher, custodial officer, case hardener)? Give summary @ -See above Was critical care preformed (if so, how long)? @ -No Undiagnosed new problem with uncertain prognosis? @ -No Drug Therapy requiring intensive monitoring for toxicity (Heparin, Nitro, Insulin, Cardizem)? @ -No Were any procedures done? @ -No Diagnosis/symptom? Acute, or Chronic, or Acute on Chronic? Uncomplicated (without systemic symptoms) or Complicated (systemic symptoms)? @ -Pyelonephritis Side effects of treatment? @ -No Exacerbation, Progression, or Severe Exacerbation? @ -No Poses a threat to life or bodily function? How? (Chest pain, [place], [place], pneumonia, PE, COPD, DKA, ARF, appy, cholecystitis, CVA, Diverticulitis, Homicidal, Suicidal, threat to staff... and all critical care pts) @ -Yes - Lab Data Result diagrams: 06/02/24 08:43 06/02/24 09:39 Lab Results 06/02/24 06/02/24 06/02/24 Range/Units 07:40 08:43 09:39 WBC 10.7 H (3.8-10.6) k/uL RBC 3.79 L (3.80-5.40) m/uL Hgb 11.7 (11.4-16.0) gm/dL Hct 35.9 (34.0-46.0) % MCV 94.7 (80.0-100.0) fL MCH 30.8 (25.0-35.0) pg MCHC 32.5 (31.0-37.0) g/dL RDW 13.2 (11.5-15.5) % Plt Count 213 (150-450) k/uL MPV 7.6 Neutrophils % 74 % Lymphocytes % 17 % Monocytes % 4 % Eosinophils % 3 % Basophils % 0 % Neutrophils # 7.9 H (1.3-7.7) k/uL Lymphocytes # 1.9 (1.0-4.8) k/uL Monocytes # 0.5 (0-1.0) k/uL Eosinophils # 0.4 (0-0.7) k/uL Basophils # 0.0 (0-0.2) k/uL Sodium 137 (137-145) mmol/L Potassium 3.9 (3.5-5.1) mmol/L Chloride 106 (98-107) mmol/L Carbon Dioxide 22 (22-30) mmol/L Anion Gap 9 mmol/L BUN 40 H (7-17) mg/dL Creatinine 2.03 H (0.52-1.04) mg/dL Est GFR (CKD-EPI)AfAm 29 (>60 ml/min/1.73 sqM) Est GFR (CKD-EPI)NonAf 25 (>60 ml/min/1.73 sqM) Glucose 87 (74-99) mg/dL Calcium 8.5 (8.4-10.2) mg/dL Total Bilirubin 0.5 (0.2-1.3) mg/dL AST 30 (14-36) U/L ALT 33 (4-34) U/L Alkaline Phosphatase 94 (38-126) U/L Total Protein 5.8 L (6.3-8.2) g/dL Albumin 3.3 L (3.5-5.0) g/dL Urine Color Yellow Urine Appearance Turbid H (Clear) Urine pH 5.5 (5.0-8.0) Ur Specific [place] 1.013 (1.001-1.035) Urine Protein 1+ H (Negative) Urine Glucose (UA) Negative (Negative) Urine Ketones Negative (Negative) Urine Blood Moderate H (Negative) Urine Nitrite Positive H (Negative) Urine Bilirubin Negative (Negative) Urine Urobilinogen <2.0 (<2.0) mg/dL Ur Leukocyte Esterase Large H (Negative) Urine RBC 40 H (0-5) /hpf Urine WBC >182 H (0-5) /hpf Urine WBC Clumps Many H (None) /hpf Urine Bacteria Few H (None) /hpf Urine Mucus Rare H (None) /hpf Disposition Clinical Impression: Pyelonephritis Disposition: ADMITTED IP TO THIS HOSP Condition: Fair Referrals: Brayan Ni DO [Primary Care Provider] - 1-2 days Decision Time: 10:36
[2024-06-02 08:37] LABS: Appearance,Urine Turbid (Clear); Bacteria,Urine Few /hpf; Bilirubin,Urine Negative (Negative); Blood,Urine Moderate (Negative); Color,Urine Yellow; Glucose,Urine (UA) Negative (Negative); Ketones,Urine Negative (Negative); Leukocyte Esterase,Urine Large (Negative); Mucus,Urine Rare /hpf; Nitrite,Urine Positive (Negative); PH, Urine 5.5 (5.0-8.0); Protein,Urine 1+ (Negative); RBC,Urine 40 /hpf (0-5); Urobilinogen,Urine <2.0 mg/dL (<2.0); WBC,Urine >182 /hpf (0-5)
[2024-06-02 08:39] LABS: Specific Gravity,Urine 1.013 (1.001-1.035)
[2024-06-02] MEDS: ONDANSETRON 4 MG/2 ML VIAL IVP STA (08:40)
[2024-06-02] MEDS: SODIUM CHLORIDE 0.9% 1,000 ML IV STA (08:40)
[2024-06-02 08:54] LABS: Basophils % (A) 0 %; Eosinophils # (A) 0.4 k/uL (0-0.7); Eosinophils % (A) 3 %; HCT 35.9 % (34.0-46.0); HGB 11.7 gm/dL (11.4-16.0); Lymphocytes # (A) 1.9 k/uL (1.0-4.8); Lymphocytes % (A) 17 %; MCH 30.8 pg (25.0-35.0); MCHC 32.5 g/dL (31.0-37.0); MCV 94.7 fL (80.0-100.0); Mean Platelet Volume 7.6; Monocytes # (A) 0.5 k/uL (0-1.0); Monocytes % (A) 4 %; Neutrophils # (A) 7.9 k/uL (1.3-7.7); Neutrophils % (A) 74 %; Platelet Count 213 k/uL (150-450); RBC 3.79 m/uL (3.80-5.40); RDW 13.2 % (11.5-15.5); WBC 10.7 k/uL (3.8-10.6)
[2024-06-02] MEDS: MORPHINE SULFATE 4 MG/ML SYRINGE IVP STA (09:01)
[2024-06-02 10:17] LABS: ALT 33 U/L (4-34); AST 30 U/L (14-36); African American GFR (CKD) 29 (>60 ml/min/1.73 sqM); Albumin 3.3 g/dL (3.5-5.0); Alkaline Phosphatase 94 U/L (38-126); Anion Gap 9 mmol/L; Blood Urea Nitrogen 40 mg/dL (7-17); Calcium 8.5 mg/dL (8.4-10.2); Carbon Dioxide 22 mmol/L (22-30); Chloride 106 mmol/L (98-107); Glucose 87 mg/dL (74-99); Non-African American GFR(CKD) 25 (>60 ml/min/1.73 sqM); Potassium 3.9 mmol/L (3.5-5.1); Sodium 137 mmol/L (137-145); Total Bilirubin 0.5 mg/dL (0.2-1.3); Total Protein 5.8 g/dL (6.3-8.2)
[2024-06-02] MEDS ORDERED: NALOXONE 0.4 MG/ML 1 ML VIAL IV PRN (10:33)
[2024-06-02] MEDS ORDERED: MORPHINE SULFATE 4 MG/ML SYRINGE IV PRN (10:33)
[2024-06-02] MEDS: SODIUM CHLORIDE 0.9% 1,000 ML IV SCH (10:44)
[2024-06-02] MEDS: cefTRIAXone IN SWFI 1,000 MG/10 ML SYRINGE IVP STA (10:46)
--- NOTE | 2024-06-02 12:39 | US ---
EXAMINATION TYPE: US kidneys/renal and bladder DATE OF EXAM: 06/02/2024 COMPARISON: US 01/14/2024 CLINICAL INDICATION: Female, 63 years old with history of pyelonephritis; Pyelonephritis per order. H x bladder suspension many years ago. Hx stage 4 CKD per patient. TECHNIQUE: Grayscale imaging of the bilateral kidneys and urinary bladder: FINDINGS: EXAM MEASUREMENTS: Right Kidney: 8.2 x 4.8 x 4.7 cm Left Kidney: 9.0 x 4.5 x 4.4 cm Right Kidney: Measures small. Appears hyperechoic. Cortex appears thin. Many hyperechoic foci seen in cortex, largest at mid: 0.6 x 0.5 x 0.3 cm. Left Kidney: Hypoechoic area seen lower pole: 1.2 x 1.3 x 1.1 cm. Complex area seen upper pole: 1.4 x 1.5 x 1.1 cm. Multiple hyperechoic foci seen in cortex, largest at upper pole: 0.4 x 0.4 x 0.4 cm. Bladder: No abnormalities seen Bilateral Jets seen: No Increased cortical echogenicity and small size kidneys bilaterally. A few subcentimeter simple cysts and possible bilateral obstructing calculi versus vascular calcifications are redemonstrated. IMPRESSION: Evidence of significant chronic medical renal disease redemonstrated. No hydronephrosis s een bilaterally. [facility], , 06/02/2024 12:37 PM
[2024-06-02] MEDS: ESTRADIOL 0.1 MG/GM VAGINAL CREAM 42.5 GM TUBE VAGINAL SCH (12:54)
--- NOTE | 2024-06-02 13:44 | P.HPIM ---
History of Present Illness H&P Date: 06/02/24 Patient is a [63-year-old female with history of hypertension, CKD 3b, recurrent UTIs, follows with neurology, unspecified hematology medication that she takes daily prednisone 5 mg and follows with [facility], says it has possible lupus but no definitive diagnosis so far, nephrology, who presented to the ED on 06/02/2024 for urinary symptoms, right flank pain with associated chills, no fever. Physical urologist and control valve technician Sandy. She wants cystoscopy that showed reportedly thickened urinary layer suggestive of estrogen deficiency and was put on estrogen cream as well 2 months course of Keflex that she finished a month ago. ED course: Afebrile, normal heart rate, normotensive, satting well on room air. Blood work significant for mild leukocytosis 10.7, normal hemoglobin, normal sodium and potassium, creatinine 2.03 appears to be at baseline. Normal AST and ALT, UA showed turbid urine, proteinuria, pyuria, hematuria, bacteriuria. Patient will be admitted for management of pyelonephritis, started on ceftriaxone, IV fluids. Ultrasound kidney: Chronic, abdomen CT, small kidneys bilaterally, possible bilateral obstructing calculi versus microcalcifications. CT abdomen with and without contrast ordered a Pertinent positives and negatives as discussed in HPI, a complete review of systems was performed and all other systems are negative. Patient seen and examined at bedside. present during the exam. Complains of lower abdominal pain and right flank pain Vital signs reviewed General: nontoxic, no distress, appears at stated age Derm: warm, dry Head: atraumatic, normocephalic, symmetric Eyes: EOMI, no lid lag, anicteric sclera, pupils equal round reactive to light ENT: Nose and ears atraumatic Neck: No thyromegaly, supple Mouth: no lip lesion, mucus membranes moist Cardiovascular: S1S2 reg, no murmur, no edema Lungs: clear to auscultation bilateral, no rhonchi, no rales, no wheeze, no accessory muscle use Abdominal: Right flank tenderness, lower abdominal tenderness Ext: no gross muscle atrophy, muscle strength muscle strength 5 out of 5 in all 4 extremities, no contractures Neuro: CN II-XII grossly intact Psych: Alert, oriented, appropriate affect Assessment/Plan: Acute pyelonephritis recurrent UTIs Leukocytosis -Continue ceftriaxone SOT 06/02 -ollow-up urine cultures -Ultrasound kidney: Chronic, abdomen CT, small kidneys bilaterally, possible bilateral obstructing calculi versus microcalcifications. CT abdomen with and without contrast ordered -Patient will need to follow-up with your urologist and control valve technician after discharge -Continue NS at 75 cc/h hypertension CKD 3b Unspecified rheumatologic condition -Continue home medications including prednisone 5 The patient is admitted with an anticipated [greater] than 2 midnight stay as [inpatient/observation] status for evaluation of pyelonephritis []. CODE STATUS full code DVT prophylaxis: Heparin Anticipated discharge date: [address] to [address]: Home independent A total of 40 minutes was spent on the care of this complex patient more than 50% of the time was spent in counseling and care coordination. Past Medical History Past Medical History: Hypertension, Renal Disease Additional Past Medical History / Comment(s): FREQ UTI'S. SJORGREN'S. HAS BEEN HAVING IBS SYMPTOMS SINCE APR 2016. covid vaccinated and had booster 04/02 History of Any Multi-Drug Resistant Organisms: None Reported Past Surgical History: Appendectomy, Bladder Surgery, Hysterectomy, Orthopedic Surgery, Tonsillectomy Additional Past Surgical History / Comment(s): THYROIDECTOMY-PARTIAL. RT FOOT SX. CORTISONE INJECTION LT KNEE Past Anesthesia/Blood Transfusion Reactions: Postoperative Nausea & Vomiting (PONV) Additional Past Anesthesia/Blood Transfusion Reaction / Comment(s): ISSUES WITH URINATING AFTER SURGERY Past Psychological History: Anxiety Smoking Status: Never smoker Past Alcohol Use History: None Reported Past Drug Use History: None Reported - Past Family History Father Family Medical History: Cancer Brother(s) Family Medical History: Cancer Daughter(s) Family Medical History: Cancer Additional Family Medical History / Comment(s): THYROID CANCER Medications and Allergies Home Medications Medication Instructions Recorded Confirmed Type predniSONE 5 mg PO DAILY 06/28/16 06/02/24 History Gabapentin 300 mg PO HS 09/24/21 06/02/24 History Pramipexole Di-HCl [Mirapex] 0.25 mg PO HS 09/24/21 06/02/24 History Zolpidem [Ambien] 10 mg PO HS 09/24/21 06/02/24 History tiZANidine HCL 2 mg PO HS 10/25/22 06/02/24 History Sodium Bicarbonate Tab 650 mg PO DAILY 08/19/23 06/02/24 History Famotidine [Pepcid] 20 mg PO DAILY 01/20/24 06/02/24 History amLODIPine [Norvasc] 5 mg PO BID #60 tab 01/20/24 06/02/24 Rx calcitrioL [Rocaltrol] 0.25 mcg PO NEWBERRY 01/20/24 06/02/24 History Estradiol Cream [Estrace Cream 1 gm VAGINAL TUTHSA 06/02/24 06/02/24 History 0.01%] lisinopriL [Zestril] 2.5 mg PO DAILY 06/02/24 06/02/24 History Allergies Allergy/AdvReac Type Severity Reaction Status Date / Time Iodinated Contrast Media Allergy Anaphylaxis Verified 06/02/24 11:08 [Iodinated Contrast Media - Oral and] Sulfa (Sulfonamide AdvReac Nausea & Verified 06/02/24 11:08 Antibiotics) Vomiting Physical Exam Vitals: Vital Signs Temp Pulse Resp BP Pulse Ox 06/02/24 10:26 97.7 F 60 16 121/78 95 06/02/24 08:53 97.9 F 57 L 15 120/78 98 06/02/24 07:43 16 06/02/24 07:22 97.4 F L 75 18 129/79 100 Intake and Output 06/01/24 06/02/24 06/02/24 22:59 06:59 14:59 Other: Voiding Method Toilet Weight 102.058 kg Results CBC & Chem 7: 06/02/24 08:43 06/02/24 09:39 Labs: Abnormal Lab Results - Last 24 Hours (Table) 06/02/24 06/02/24 06/02/24 Range/Units 07:40 08:43 09:39 WBC 10.7 H (3.8-10.6) k/uL RBC 3.79 L (3.80-5.40) m/uL Neutrophils # 7.9 H (1.3-7.7) k/uL BUN 40 H (7-17) mg/dL Creatinine 2.03 H (0.52-1.04) mg/dL Total Protein 5.8 L (6.3-8.2) g/dL Albumin 3.3 L (3.5-5.0) g/dL Urine Appearance Turbid H (Clear) Urine Protein 1+ H (Negative) Urine Blood Moderate H (Negative) Urine Nitrite Positive H (Negative) Ur Leukocyte Esterase Large H (Negative) Urine RBC 40 H (0-5) /hpf Urine WBC >182 H (0-5) /hpf Urine WBC Clumps Many H (None) /hpf Urine Bacteria Few H (None) /hpf Urine Mucus Rare H (None) /hpf
[2024-06-02] MEDS: ONDANSETRON 4 MG/2 ML VIAL IVP PRN (15:27)
[2024-06-02] MEDS: HEPARIN SODIUM,PORCINE 5,000 UNIT/ML 1 ML VIAL SQ SCH (15:34)
--- NOTE | 2024-06-02 17:25 | CT ---
EXAMINATION TYPE: CT abdomen pelvis wo con DATE OF EXAM: 06/02/2024 3:21 PM COMPARISON: None. CLINICAL INDICATION: Female, 63 years old with history of pyelo, nephrolithiasis ?, Pyelo, nephrolith iasis ? No contrast. TECHNIQUE: Axial images were obtained from above the diaphragm to the pubic rami in the axial plane a t 5 mm thick sections. Reconstructed images are reviewed on the computer in the coronal plane. CONTRAST: mL of . Study performed without Oral Contrast DLP: 992.5 mGycm, Automated exposure control for dose reduction was used. FINDINGS: Limited CT sections are obtained the lung bases. The lung bases are clear. CT ABDOMEN: There is a moderate size hiatal hernia present. Liver: Cyst is within the right lobe liver Spleen: Normal Pancreas: Normal Adrenal glands: The adrenal glands are normal. Gallbladder: Normal Kidneys: No masses are evident. No hydronephrosis is present. No cysts are present. No renal stone s or ureteral stones are evident. No perinephric stranding Aorta: Normal Inferior vena cava: Normal. CT PELVIS: Loops of bowel within the abdomen and pelvis are normal. A few diverticuli within the sigmoid colon . No acute diverticulitis. There are loops of bowel which are incompletely distended or lack oral co ntrast limiting their evaluation. Appendix: Normal as visualized. Urinary bladder: Normal. Genitourinary structures: There may be a small cyst within the right adrenal gland measuring 1.6 cm. Left ovarian cyst measuring 2.6 cm is present. Uterus is absent. Osseous structures: No suspicious lytic or sclerotic lesions. Spondylolysis of L5 is present. Degener ative disc changes and grade 1 spondylolisthesis of L5 on S1 is present. Diffuse degenerative disc ch anges through the thoracic and lumbar spine within the [id number] IMPRESSION: 1. No suspicious changes to suggest pyelonephritis. No renal or ureteral stones evident. 2. Diverticulosis without acute diverticulitis. 3. Bilateral ovarian cysts may be present. [facility], , 06/02/2024 5:23 PM
[2024-06-02] MEDS: ZOLPIDEM 5 MG TAB PO SCH (21:32)
[2024-06-02] MEDS: amLODIPine 5 MG TAB PO SCH (21:32)
[2024-06-02] MEDS: PRAMIPEXOLE 0.125 MG TAB PO SCH (21:33)
[2024-06-02] MEDS: GABAPENTIN 300 MG CAP PO SCH (21:33)
[2024-06-02] MEDS: tiZANidine 4 MG TAB PO SCH (21:33)
[2024-06-03 06:28] LABS: Basophils % (A) 0 %; Eosinophils # (A) 0.5 k/uL (0-0.7); Eosinophils % (A) 6 %; HCT 30.5 % (34.0-46.0); HGB 10.1 gm/dL (11.4-16.0); Lymphocytes # (A) 1.9 k/uL (1.0-4.8); Lymphocytes % (A) 26 %; MCH 31.2 pg (25.0-35.0); MCV 94.5 fL (80.0-100.0); Monocytes # (A) 0.4 k/uL (0-1.0); Monocytes % (A) 5 %; Neutrophils # (A) 4.6 k/uL (1.3-7.7); Neutrophils % (A) 62 %; Platelet Count 184 k/uL (150-450); RBC 3.23 m/uL (3.80-5.40); RDW 13.6 % (11.5-15.5); WBC 7.4 k/uL (3.8-10.6)
[2024-06-03 06:43] LABS: African American GFR (CKD) 35 (>60 ml/min/1.73 sqM); Anion Gap 7 mmol/L; Blood Urea Nitrogen 30 mg/dL (7-17); Calcium 8.5 mg/dL (8.4-10.2); Carbon Dioxide 22 mmol/L (22-30); Chloride 108 mmol/L (98-107); Glucose 76 mg/dL (74-99); Non-African American GFR(CKD) 30 (>60 ml/min/1.73 sqM); Potassium 4.5 mmol/L (3.5-5.1); Sodium 137 mmol/L (137-145)
[2024-06-03 09:39] VITALS: BP 122/68; PULSE 69; RESP 17; TEMP 97.7
[2024-06-03] MEDS: SODIUM BICARBONATE TAB 650 MG TAB PO SCH (10:46)
[2024-06-03] MEDS: FAMOTIDINE 20 MG TAB PO SCH (10:47)
[2024-06-03] MEDS: predniSONE 5 MG TAB PO SCH (11:02)
--- NOTE | 2024-06-03 14:57 | P.DS ---
Providers Date of admission: 06/02/24 10:33 Attending physician: Erwin Ang [facility] Hospital Course: Discharge Diagnosis: UTI, recurrent UTI Hospital Course: Patient is a [63-year-old female with history of hypertension, CKD 3b, recurrent UTIs, follows with neurology, unspecified hematology medication that she takes daily prednisone 5 mg and follows with [facility], says it has possible lupus but no definitive diagnosis so far, nephrology, who presented to the ED on 06/02/2024 for urinary symptoms, right flank pain with associated chills, no fever. Physical urologist and claim professional Sandy. She wants cystoscopy that showed reportedly thickened urinary layer suggestive of estrogen deficiency and was put on estrogen cream as well 2 months course of Keflex that she finished a month ago. ED course: Afebrile, normal heart rate, normotensive, satting well on room air. Blood work significant for mild leukocytosis 10.7, normal hemoglobin, normal sodium and potassium, creatinine 2.03 appears to be at baseline. Normal AST and ALT, UA showed turbid urine, proteinuria, pyuria, hematuria, bacteriuria. Patient will be admitted for management of pyelonephritis, started on ceftriaxone, IV fluids. Ultrasound kidney: Chronic, abdomen CT, small kidneys bilaterally, possible bilateral obstructing calculi versus microcalcifications. CT abdomen with and without contrast ordered did not show any pyelonephritis or nephrolithiasis. Patient's condition significantly improved on IV ceftriaxone, leukocytosis resolved, kidney function trending down to creatinine 1.77. She will be discharged home on cefixime 400 to complete 7 days course of antibiotics, recommended to follow-up with urology Patient seen and examined at bedside. Still has some pressure with urination but overall significantly improved Vital signs reviewed and stable. General: [nontoxic], [no distress], [appears at stated age] Derm: [warm], [dry] Head: [atraumatic], [normocephalic], [symmetric] Eyes: [EOMI], [no lid lag], [anicteric sclera] Mouth: [no lip lesion], [mucus membranes moist] Cardiovascular: [S1S2 reg], [no murmur] Lungs: [CTA bilateral], [no rhonchi, no rales] , [no accessory muscle use] Abdominal: [soft], lower abdomen mild tenderness], [no guarding], [no appreciable organomegaly] Ext: [no gross muscle atrophy], [no edema], [no contractures] Neuro: [ CN II-XI grossly intact], [no focal neuro deficits] Psych: [Alert], [oriented], [appropriate affect] A total of [40] minutes of time were spent preparing this complex discharge summary. Patient was discharged on 06/03. Patient Condition at Discharge: Fair Plan - Discharge Summary New Discharge Prescriptions: New ceFIXime [Suprax] 400 mg PO DAILY #5 capsule Continue predniSONE 5 mg PO DAILY Zolpidem [Ambien] 10 mg PO HS Pramipexole Di-HCl [Mirapex] 0.25 mg PO HS Famotidine [Pepcid] 20 mg PO DAILY Gabapentin 300 mg PO HS tiZANidine HCL 2 mg PO HS Sodium Bicarbonate Tab 650 mg PO DAILY calcitrioL [Rocaltrol] 0.25 mcg PO NEWBERRY amLODIPine [Norvasc] 5 mg PO BID #60 tab Estradiol Cream [Estrace Cream 0.01%] 1 gm VAGINAL TUTHSA lisinopriL [Zestril] 2.5 mg PO DAILY Discharge Medication List predniSONE 5 mg PO DAILY 06/28/16 [History] Gabapentin 300 mg PO HS 09/24/21 [History] Pramipexole Di-HCl [Mirapex] 0.25 mg PO HS 09/24/21 [History] Zolpidem [Ambien] 10 mg PO HS 09/24/21 [History] tiZANidine HCL 2 mg PO HS 10/25/22 [History] Sodium Bicarbonate Tab 650 mg PO DAILY 08/19/23 [History] Famotidine [Pepcid] 20 mg PO DAILY 01/20/24 [History] amLODIPine [Norvasc] 5 mg PO BID #60 tab 01/20/24 [Rx] calcitrioL [Rocaltrol] 0.25 mcg PO NEWBERRY 01/20/24 [History] Estradiol Cream [Estrace Cream 0.01%] 1 gm VAGINAL TUTHSA 06/02/24 [History] lisinopriL [Zestril] 2.5 mg PO DAILY 06/02/24 [History] ceFIXime [Suprax] 400 mg PO DAILY #5 capsule 06/03/24 [Rx] Follow up Appointment(s)/Referral(s): Brayan Ni DO [Primary Care Provider] - 1-2 days Activity/Diet/Wound Care/Special Instructions: Please, follow up with your PCP, urologist and claim professional Discharge Disposition: HOME SELF-CARE
== END 2024-06-03 15:21 | disposition home or self-care (01) ==
LOC: EC 07:18 → 6NMEDSUR 10:33 → 1SOBS 19:27
PROVIDERS: ADMIT Student in an Organized Health Care Education/Training Program; ATTEND Student in an Organized Health Care Education/Training Program
DX: N10 Acute pyelonephritis (principal); N27.1 Small kidney, bilateral; I12.9 Hypertensive chronic kidney disease with stage 1 through stage 4 chronic kidney disease, or unspecified chronic kidney disease; N18.32 Chronic kidney disease, stage 3b; F41.9 Anxiety disorder, unspecified; Z88.2 Allergy status to sulfonamides; Z91.041 Radiographic dye allergy status; Z79.52 Long term (current) use of systemic steroids; Z79.899 Other long term (current) drug therapy; Z79.2 Long term (current) use of antibiotics; Z87.440 Personal history of urinary (tract) infections; Z90.710 Acquired absence of both cervix and uterus
CPT/HCPCS: 96365; 96366; 96376; 96361; 96375; 99285; 36415; 80053; 80048; 85025 ×2; 81001; 87086; 87077; 87186; 76770; 74176; G0378 ×2; J2270; J2405; J0696 ×2; J7512

== ENCOUNTER → 2024-07-24 | Outpatient (CLI) | payer BC ==
[2024-07-24 14:46] LABS: HCT 33.2 % (37.2-46.3); HGB 10.5 g/dL (12.0-15.0); MCH 31.1 pg (27.0-32.0); MCHC 31.6 g/dL (32.0-37.0); MCV 98.2 FL (80.0-97.0); Mean Platelet Volume 10.4 FL (9.5-12.2); NRBC Per 100 WBC 0 X 10*3/uL (0.00-0.01); Platelet Count 223 X 10*3/uL (140-440); RBC 3.38 X 10*6/uL (4.10-5.20); RDW 13.6 % (11.5-14.5); WBC 10.95 X 10*3/uL (4.50-10.00)
[2024-07-24 15:46] LABS: % Iron Saturation 27.14 (12.00-45.00); BUN/Creat Ratio 18.26 Ratio (12.00-20.00); Blood Urea Nitrogen 34.7 mg/dL (9.0-27.0); Chloride 107 mmol/L (96-109); Glucose 85 mg/dL (70-110); Iron 73 UG/DL (50-170); Potassium 4.9 mmol/L (3.5-5.5); Sodium 144 mmol/L (135-145); Total Iron Binding Capacity 269 UG/DL (228-460); Uric Acid 6.7 mg/dL (2.9-7.7)
[2024-07-24 15:47] LABS: ALT 18 U/L (8-44); AST 20 U/L (13-35); Albumin 3.9 g/dL (3.8-4.9); Albumin/Globulin Ratio 1.77 Ratio (1.60-3.17); Alkaline Phosphatase 70 U/L (41-126); Carbon Dioxide 24.4 mmol/L (21.6-31.8); Globulin 2.2 g/dL (1.6-3.3); Total Bilirubin 0.3 mg/dL (0.3-1.2); Total Protein 6.1 g/dL (6.2-8.2)
[2024-07-24 17:28] LABS: Appearance,Urine Clear (Clear); Bilirubin,Urine Negative (Negative); Blood,Urine Negative (Negative); Color,Urine Yellow (Yellow); Ketones,Urine Negative (Negative); Nitrite,Urine Negative (Negative); PH, Urine 6.5; Specific Gravity,Urine 1.016 (1.001-1.030); Urobilinogen,Urine 0.2 E.U./DL
[2024-07-24 17:34] LABS: Bacteria,Urine None Seen (None Seen)
[2024-07-24 21:07] LABS: Microalbumin Creatinine Ratio <14 mg/g Cr (0-30); Urine Creatinine 88.5 mg/dL (28.0-217.0)
== END | disposition home or self-care (01) ==
LOC: LABWHC1 08:57
PROVIDERS: ATTEND Internal Medicine
DX: N18.4 Chronic kidney disease, stage 4 (severe) (principal); N25.81 Secondary hyperparathyroidism of renal origin; D50.9 Iron deficiency anemia, unspecified
CPT/HCPCS: 36415; 80053; 81001; 82043; 82306; 82570; 82728; 83540; 83550; 83970; 84550; 85027

== ENCOUNTER → 2024-08-21 | Outpatient (CLI) | payer BC ==
[2024-08-21 15:16] LABS: HCT 36.4 % (37.2-46.3); HGB 11.1 g/dL (12.0-15.0); MCH 29.8 pg (27.0-32.0); MCHC 30.5 g/dL (32.0-37.0); MCV 97.8 FL (80.0-97.0); Mean Platelet Volume 10.3 FL (9.5-12.2); NRBC Per 100 WBC 0 X 10*3/uL (0.00-0.01); Platelet Count 273 X 10*3/uL (140-440); RBC 3.72 X 10*6/uL (4.10-5.20); RDW 13.6 % (11.5-14.5); WBC 12.56 X 10*3/uL (4.50-10.00)
[2024-08-21 15:59] LABS: % Iron Saturation 23.47 (12.00-45.00); ALT 17 U/L (8-44); AST 22 U/L (13-35); Albumin 4.2 g/dL (3.8-4.9); Albumin/Globulin Ratio 1.83 Ratio (1.60-3.17); Alkaline Phosphatase 75 U/L (41-126); BUN/Creat Ratio 17.67 Ratio (12.00-20.00); Blood Urea Nitrogen 31.8 mg/dL (9.0-27.0); Calcium 9.3 mg/dL (8.7-10.3); Carbon Dioxide 24.5 mmol/L (21.6-31.8); Chloride 105 mmol/L (96-109); Globulin 2.3 g/dL (1.6-3.3); Glucose 100 mg/dL (70-110); Iron 65 UG/DL (50-170); Magnesium 1.9 mg/dL (1.5-2.4); Phosphorus 3.8 mg/dL (2.4-5.1); Potassium 4.4 mmol/L (3.5-5.5); Sodium 142 mmol/L (135-145); Total Bilirubin 0.3 mg/dL (0.3-1.2); Total Iron Binding Capacity 277 UG/DL (228-460); Total Protein 6.5 g/dL (6.2-8.2); Uric Acid 6.3 mg/dL (2.9-7.7)
[2024-08-21 18:32] LABS: Appearance,Urine Clear (Clear); Bilirubin,Urine Negative (Negative); Blood,Urine Negative (Negative); Color,Urine Yellow (Yellow); Ketones,Urine Negative (Negative); Nitrite,Urine Negative (Negative); PH, Urine 5.5; Specific Gravity,Urine 1.017 (1.001-1.030); Urobilinogen,Urine 0.2 E.U./DL
[2024-08-21 19:24] LABS: Bacteria,Urine None Seen (None Seen)
[2024-08-21 21:17] LABS: Microalbumin Creatinine Ratio <12 mg/g Cr (0-30)
== END | disposition home or self-care (01) ==
LOC: LABWHC1 08:58
PROVIDERS: ATTEND Internal Medicine
DX: E55.9 Vitamin D deficiency, unspecified (principal); N25.81 Secondary hyperparathyroidism of renal origin; N18.4 Chronic kidney disease, stage 4 (severe); D63.1 Anemia in chronic kidney disease; N39.0 Urinary tract infection, site not specified; M10.9 Gout, unspecified; R80.9 Proteinuria, unspecified
CPT/HCPCS: 36415; 80053; 81001; 82043; 82306; 82570; 82728; 83540; 83550; 83735; 83970; 84100; 84550; 85027

== ENCOUNTER → 2024-08-21 | Outpatient (CLI) | payer BC ==
--- NOTE | 2024-08-23 15:10 | CT ---
EXAMINATION TYPE: CT facial bones wo con DATE OF EXAM: 08/21/2024 9:31 AM COMPARISON: None. CLINICAL INDICATION: Female, 63 years old with history of H92.09 OTALGIA, UNSPECIFIED EAR, SINUS ALLEN ESTION TECHNIQUE: The paranasal sinuses are examined in the axial plane at 2 mm thick sections. Reconstruct ed images in the coronal plane were obtained. Contrast used: mL of , (none if empty) Oral contrast used: (none if empty) CT DLP: 628.70 mGycm, Automated exposure control for dose reduction was used. FINDINGS: There is dental amalgam scatter artifact The maxillary sinuses are clear. The ethmoid air cells are clear. The sphenoid sinuses are clear. The frontal sinuses are clear. The septum is evaluated. There is septal deviation to the left. The ostiomeatal units are patent. IMPRESSION: 1. No suspicious changes for acute or chronic sinusitis. [facility], , 08/23/2024 3:08 PM
== END | disposition home or self-care (01) ==
LOC: RADCTMAIN 09:13
PROVIDERS: ATTEND Family Medicine
DX: H92.09 Otalgia, unspecified ear (principal); M32.9 Systemic lupus erythematosus, unspecified; J01.11 Acute recurrent frontal sinusitis
CPT/HCPCS: 70486

== ENCOUNTER → 2024-11-26 | Outpatient (CLI) | payer MEDICARE ==
[2024-11-26 10:23] LABS: Basophils # (A) 0.07 X 10*3/uL (0.00-0.10); Basophils % (A) 0.7 %; Eosinophils # (A) 0.35 X 10*3/uL (0.04-0.35); Eosinophils % (A) 3.5 %; HCT 33.6 % (37.2-46.3); HGB 10.5 g/dL (12.0-15.0); Immature Grans, Automated 0.70 %; Lymphocytes # (A) 3.35 X 10*3/uL (0.90-5.00); Lymphocytes % (A) 33.9 %; MCH 30.3 pg (27.0-32.0); MCHC 31.3 g/dL (32.0-37.0); MCV 96.8 FL (80.0-97.0); Monocytes # (A) 0.62 X 10*3/uL (0.20-1.00); Monocytes % (A) 6.3 %; NRBC Per 100 WBC 0 X 10*3/uL (0.00-0.01); Neutrophils # (A) 5.41 X 10*3/uL (1.80-7.70); Neutrophils % (A) 54.9 %; Platelet Count 257 X 10*3/uL (140-440); RBC 3.47 X 10*6/uL (4.10-5.20); RDW 14.1 % (11.5-14.5); WBC 9.87 X 10*3/uL (4.50-10.00)
[2024-11-26 10:44] LABS: ALT 21 U/L (8-44); AST 21 U/L (13-35); Albumin 4.1 g/dL (3.8-4.9); Albumin/Globulin Ratio 1.95 Ratio (1.60-3.17); Alkaline Phosphatase 76 U/L (41-126); Anion Gap 10.50 mmol/L (4.00-12.00); BUN/Creat Ratio 17.95 Ratio (12.00-20.00); Blood Urea Nitrogen 37.7 mg/dL (9.0-27.0); Calcium 8.9 mg/dL (8.7-10.3); Carbon Dioxide 22.5 mmol/L (21.6-31.8); Chloride 107 mmol/L (96-109); Ferritin 320.0 ng/mL (10.0-291.0); Globulin 2.1 g/dL (1.6-3.3); Glucose 84 mg/dL (70-110); Iron 47 UG/DL (50-170); Potassium 5.1 mmol/L (3.5-5.5); Sodium 140 mmol/L (135-145); Total Iron Binding Capacity 274 UG/DL (228-460); Total Protein 6.2 g/dL (6.2-8.2)
== END | disposition home or self-care (01) ==
LOC: LABWHC1 07:15
PROVIDERS: ATTEND Nurse Practitioner Family
DX: N18.4 Chronic kidney disease, stage 4 (severe) (principal); D63.1 Anemia in chronic kidney disease
CPT/HCPCS: 36415; 80053; 82728; 83540; 83550; 85025